=== PATIENT | female | born 1945 | race Caucasian/White ===

== ENCOUNTER 2017-11-05 13:37 | Observation (INO) ==
[2017-11-05] MEDS ORDERED: Ondansetron 4 MG/2 ML VIAL IVP ONE (14:01)
[2017-11-05] MEDS ORDERED: 0.9 % Sodium Chloride 500 ML IVC ONE (14:06)
--- NOTE | 2017-11-05 14:11 | Emergency Department Note ---
Disposition Clinical Impression: Intractable nausea and vomiting Qualifiers: Vomiting type: unspecified Qualified Code(s): R11.2 - Nausea with vomiting, unspecified UTI (urinary tract infection) Qualifiers: Urinary tract infection type: acute cystitis Hematuria presence: without hematuria Qualified Code(s): N30.00 - Acute cystitis without hematuria Disposition: Admitted As Inpatient Condition: Fair Referrals: Rocio Castellano MD [Primary Care Provider] - Forms: ED Satisfaction Letter Time of Disposition: 16:56 General Adult HPI - General Chief complaint: ED Nausea/Vomiting/Diarrhea Stated complaint: UTI/N/V Time Seen by Provider: 11/05/17 13:42 Source: patient Mode of arrival: ambulatory Limitations: no limitations Nursing Notes Reviewed: Yes Vital Signs Reviewed: Yes - History of Present Illness HPI Narrative: Patient is a 72-year-old female with a past medical history of CVA, DM, HTN, TIA , Gastric neuropathy presenting to the emergency department with the presentation of nausea and vomiting not refractory to Zofran. The patient was seen yesterday in the emergency department for symptoms that started 2 days ago. She states that she has been having nausea vomiting and dysuria. She did have a fever on initial presentation yesterday however that resolved. Patient states that the Zofran has not been working for her at home she has not been able to keep any of her medication down. She denies any blood in her emesis, however there was a noted 1 black emesis patient's history of present illness from yesterday. She denies melena or hematochezia. Pain Scale: 8 - Related Data Home Medications Medication Instructions Recorded Confirmed Aspirin Enteric Coated [Aspirin EC] 81 mg PO HS 02/24/15 05/10/16 Calcium Carbonate/Vitamin D3 1 each PO BID 02/24/15 05/10/16 [Calcium 500-Vit D3 400 Tablet] Escitalopram [Lexapro] 10 mg PO DAILY 02/24/15 05/10/16 Metoprolol [Lopressor] 25 mg PO BID 02/24/15 05/10/16 Niacin 500 mg PO BID 02/24/15 05/10/16 Pantoprazole Sodium [Protonix] 40 mg PO DAILY 02/24/15 05/10/16 Sucralfate [Carafate] 1 gm PO TID 02/24/15 05/10/16 [place]-3/Dha/Epa/Fish Oil [Fish Oil 1,000 mg PO QID 05/10/16 05/10/16 1,000 mg Softgel] Pravastatin Sodium [Pravachol] 40 mg PO DAILY 05/10/16 05/10/16 hydrOXYzine HCl [Hydroxyzine HCl] 25 mg PO TID 05/10/16 05/10/16 Previous Rx's Medication Instructions Recorded Metoclopramide [Reglan] 5 mg PO BIDWM 30 Days ud.liq 05/13/16 Nitrofurantoin Monohyd/M-Cryst 100 mg PO BID #20 capsule 11/04/17 [Macrobid 100 mg Capsule] Ondansetron ODT [Zofran ODT] 4 mg SL Q6HR PRN #10 tab.rapdis 11/04/17 Allergies Allergy/AdvReac Type Severity Reaction Status Date / Time Penicillins [PCN] Allergy Severe See Verified 05/10/16 13:11 Comments Sulfa (Sulfonamide Allergy Severe See Verified 05/10/16 13:11 Antibiotics) Comments lorazepam [From Ativan] AdvReac Severe Hallucinati Verified 05/10/16 13:11 ng All systems ED: reviewed and negative except as stated. Review of Systems: As Per HPI Constitutional: Reports: fever. Denies: chills, weakness Eyes: Denies: eye discharge, vision change ENT ED: Denies: ear pain Cardiovascular: Denies: chest pain, palpitations, dyspnea on exertion Respiratory: Denies: cough, dyspnea, wheezes, hemoptysis Gastrointestinal: Reports: nausea, vomiting. Denies: abdominal pain, diarrhea, constipation, hematemesis, melena, hematochezia Genitourinary: Reports: dysuria. Denies: urgency, hematuria, discharge Musculoskeletal: Reports: arthralgia (hips - chronic from arthritis, not new.). Denies: back pain, neck pain Integumentary: Denies: rash Neurological: Denies: headache, weakness, numbness, paresthesias Past Medical History - Past Medical History Attestation: Yes The following information was validated with the patient. 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 CONSTITUTIONAL: Alert and oriented X3, patient is actively vomiting on exam. HEAD: Normocephalic; atraumatic. EYES: PERRL, no scleral icterus. NOSE: The nose is normal in appearance without rhinorrhea RESP: Normal chest excursion with respiration; breath sounds clear and equal bilaterally; no wheezes, rhonchi, or rales CARD: Regular rhythm, without murmurs, rub or gallop ABD: Non-distended; non-tender, soft,without rigidity, rebound or guarding SKIN: Normal for age and race; warm and dry; no apparent lesions - General Limitations: no limitations General appearance: alert, in no apparent distress Course Course Narrative: Plan at this time is to perform a CT of the abdomen and pelvis to rule out intra -abdominal process as cause of patient's emesis. Patient received IV fluids, Zofran and IV antibiotics for UTI that was diagnosed yesterday. 16:37: Patient's symptoms are not improving Zofran she was ordered Phenergan by Dr. Vásquez. Discussed her lab results are within normal limits her CT of her abdomen and pelvis just shows chronic changes to see with her hiatal hernia. Discussed with the patient the plan to admit her due to her intractable nausea. Vital Signs Temperature 99.0 F 11/05/17 13:41 Pulse Rate 62 11/05/17 13:41 Respiratory Rate 20 11/05/17 13:41 Blood Pressure 158/87 11/05/17 13:41 O2 Sat by Pulse Oximetry 96 11/05/17 13:41 Temperature 99.0 F 11/05/17 13:42 Pulse Rate 60 11/05/17 15:23 Respiratory Rate 18 11/05/17 15:23 Blood Pressure 158/74 11/05/17 15:23 O2 Sat by Pulse Oximetry 97 11/05/17 15:23 Oxygen Delivery Oxygen Delivery Nasal Cannula Medical Decision Making - Medical Records Medical records reviewed: Yes I reviewed the patient's medical records. - Lab Data Lab results reviewed: Yes I reviewed the patient's lab results. Result diagrams: 11/05/17 14:47 11/05/17 14:47 Lab Results 11/05/17 11/05/17 Range/Units 14:47 14:47 WBC 8.4 (4.3-11.1) K/mcL RBC 4.91 (3.82-4.97) M/mcL Hgb 11.4 L (11.5-15.4) g/dL Hct 37.2 (35.3-44.9) % MCV 75.8 L (83.0-100.0) fL MCH 23.2 L (28.0-33.3) pg MCHC 30.6 L (31.6-35.5) g/dL RDW 24.2 H (11.5-14.5) % Plt Count 277 (140-400) K/mcL MPV 9.1 L (9.4-12.4) fL Seg Neutrophils % 90.0 % Lymphocytes % 8.0 % Monocytes % 2.0 % Neutrophils # 7.6 (1.6-8.9) K/mcL Lymphocytes # 0.7 (0.6-4.6) K/mcL Monocytes # 0.2 (0.0-1.3) K/mcL Platelet Estimate Normal (Normal) Anisocytosis 2+ A (Not Present) Ovalocytes 1+ A (Not Present) Sodium 137 (136-145) mEq/L Potassium 3.4 L (3.5-5.1) mEq/L Chloride 103 (98-107) mEq/L Carbon Dioxide 25 (23-29) mEq/L BUN 20 (8-23) mg/dL Creatinine 0.93 (0.60-1.20) mg/dL Est GFR ( Amer) > 60 (> 60) Est GFR (Non-Af Amer) 59 L (> 60) BUN/Creatinine Ratio 22 (6-26) Glucose 170 H (70-105) mg/dL Calculated Osmolality 291 (280-300) Calcium 9.0 (8.6-10.3) mg/dL Total Bilirubin 0.5 (0.3-1.0) mg/dL AST 40 H (13-39) Units/L ALT 22 (7-52) Units/L Alkaline Phosphatase 70 (34-104) Units/L Troponin I < 0.03 (< 0.04) ng/mL Serum Total Protein 6.7 (6.4-8.9) g/dL Albumin 3.9 (3.5-5.7) g/dL Globulin 2.8 (2.4-3.5) g/dL Albumin/Globulin Ratio 1.4 (1.1-2.2) Lipase 74 (11-82) Units/L - Radiology Data Radiology results reviewed: Yes I reviewed the patient's radiology results. Abdomen/Pelvis CT 11/05/17 14:02 IMPRESSION: No acute intra-abdominal or pelvic finding. 8 cm hiatal hernia. Incidental note of 1 cm fat density lesion upper pole right kidney compatible with benign incidental angiomyolipoma. Moderate to severe multilevel degenerative disc changes throughout the lumbar spine. D/ / Lauro To MD / Lauro To MD Interpreting Provider: Lauro To MD Chest X-Ray 11/05/17 14:03 IMPRESSION: Hypoinflated lungs and right basilar atelectasis. No acute cardiopulmonary abnormality. D/ / Bimal Herzog MD / Bimal Herzog MD Interpreting Provider: Bimal Herzog MD - EKG Data EKG #1 EKG attestation: Yes I reviewed and interpreted this EKG. EKG results narrative: EKG done at 14:08 shows sinus rhythm at a rate of 60 bpm. Normal axis. NE is 206, QRS is 92, QT is 49 and every TC is 460 on within normal limits except for NE interval which is slightly increased. T wave inversion in V2. Attestation Statement - Attestation Attestation: I, Nathan Vásquez DO, examined this patient [id number] and my medical decision-making was reviewed with Dr. Ángel Harrison, Resident Physician. I agree with the documented findings, disposition and treatment plan as described except to the extent set forth below. Please see my progress notes for details.
[2017-11-05 15:12] LABS: Hematocrit 37.2 % (35.3-44.9); Hemoglobin 11.4 g/dL (11.5-15.4); Mean Corpuscular HGB Conc 30.6 g/dL (31.6-35.5); Mean Corpuscular Hemoglobin 23.2 pg (28.0-33.3); Mean Corpuscular Volume 75.8 fL (83.0-100.0); Mean Platelet Volume 9.1 fL (9.4-12.4); Platelet Count 277 K/mcL (140-400); Red Blood Count 4.91 M/mcL (3.82-4.97); Red Cell Distribution Width 24.2 % (11.5-14.5)
[2017-11-05 15:33] LABS: Alanine Aminotransferase 22 Units/L (7-52); Albumin 3.9 g/dL (3.5-5.7); Albumin/Globulin Ratio 1.4 (1.1-2.2); Alkaline Phosphatase 70 Units/L (34-104); Aspartate Amino Transferase 40 Units/L (13-39); BUN/Creatinine Ratio 22 (6-26); Bilirubin,Total 0.5 mg/dL (0.3-1.0); Blood Urea Nitrogen 20 mg/dL (8-23); Carbon Dioxide 25 mEq/L (23-29); Chloride 103 mEq/L (98-107); Globulin 2.8 g/dL (2.4-3.5); Glucose 170 mg/dL (70-105); Lipase 74 Units/L (11-82); Osmolality,Calculated 291 (280-300); Potassium 3.4 mEq/L (3.5-5.1); Sodium 137 mEq/L (136-145); Total Protein 6.7 g/dL (6.4-8.9); Troponin I < 0.03 ng/mL (< 0.04); eGFR For African Americans > 60 (> 60); eGFR For Non-African Americans 59 (> 60)
[2017-11-05] MEDS ORDERED: Promethazine 12.5 MG in 0.9 % Sodium Chloride 50 ML IVPB STA (15:37)
[2017-11-05 15:51] LABS: Lymphocytes # 0.7 K/mcL (0.6-4.6); Monocytes # 0.2 K/mcL (0.0-1.3); Neutrophils # 7.6 K/mcL (1.6-8.9)
[2017-11-05 15:52] LABS: Anisocytosis 2+ (Not Present); Ovalocytes 1+ (Not Present); Platelet Estimate Normal (Normal)
[2017-11-05] MEDS ORDERED: cefTRIAXone 1,000 MG in Water for inj. (sterile) 20 ML 10 ML IVP ONE (16:00)
--- NOTE | 2017-11-05 16:38 | Emergency Department Note ---
Disposition Clinical Impression: Intractable nausea and vomiting Qualifiers: Vomiting type: unspecified Qualified Code(s): R11.2 - Nausea with vomiting, unspecified UTI (urinary tract infection) Qualifiers: Urinary tract infection type: site unspecified Hematuria presence: with hematuria Qualified Code(s): N39.0 - Urinary tract infection, site not specified Disposition: Admitted As Inpatient Condition: Fair Referrals: Rocio Castellano MD [Primary Care Provider] - Forms: ED Satisfaction Letter Time of Disposition: 16:58 General Adult HPI - General Chief complaint: ED Nausea/Vomiting/Diarrhea Stated complaint: UTI/N/V Time Seen by Provider: 11/05/17 13:42 Source: patient Mode of arrival: ambulatory Limitations: no limitations - History of Present Illness Pain Scale: 8 - Related Data Home Medications Medication Instructions Recorded Confirmed Aspirin Enteric Coated [Aspirin EC] 81 mg PO HS 02/24/15 05/10/16 Calcium Carbonate/Vitamin D3 1 each PO BID 02/24/15 05/10/16 [Calcium 500-Vit D3 400 Tablet] Escitalopram [Lexapro] 10 mg PO DAILY 02/24/15 05/10/16 Metoprolol [Lopressor] 25 mg PO BID 02/24/15 05/10/16 Niacin 500 mg PO BID 02/24/15 05/10/16 Pantoprazole Sodium [Protonix] 40 mg PO DAILY 02/24/15 05/10/16 Sucralfate [Carafate] 1 gm PO TID 02/24/15 05/10/16 [place]-3/Dha/Epa/Fish Oil [Fish Oil 1,000 mg PO QID 05/10/16 05/10/16 1,000 mg Softgel] Pravastatin Sodium [Pravachol] 40 mg PO DAILY 05/10/16 05/10/16 hydrOXYzine HCl [Hydroxyzine HCl] 25 mg PO TID 05/10/16 05/10/16 Previous Rx's Medication Instructions Recorded Metoclopramide [Reglan] 5 mg PO BIDWM 30 Days ud.liq 05/13/16 Nitrofurantoin Monohyd/M-Cryst 100 mg PO BID #20 capsule 11/04/17 [Macrobid 100 mg Capsule] Ondansetron ODT [Zofran ODT] 4 mg SL Q6HR PRN #10 tab.rapdis 11/04/17 Allergies Allergy/AdvReac Type Severity Reaction Status Date / Time Penicillins [PCN] Allergy Severe See Verified 05/10/16 13:11 Comments Sulfa (Sulfonamide Allergy Severe See Verified 05/10/16 13:11 Antibiotics) Comments lorazepam [From Ativan] AdvReac Severe Hallucinati Verified 05/10/16 13:11 ng Constitutional: Reports: fever. Denies: chills, weakness Eyes: Denies: eye discharge, vision change ENT ED: Denies: ear pain Cardiovascular: Denies: chest pain, palpitations, dyspnea on exertion Respiratory: Denies: cough, dyspnea, wheezes, hemoptysis Gastrointestinal: Reports: nausea, vomiting. Denies: abdominal pain, diarrhea, constipation, hematemesis, melena, hematochezia Genitourinary: Reports: dysuria. Denies: urgency, hematuria, discharge Musculoskeletal: Reports: arthralgia (hips - chronic from arthritis, not new.). 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 - Social History Smoking Status: Never smoker Smokeless Tobacco Status: No Alcohol use: Reports: none Drug use: Reports: none Physical Exam - General Limitations: no limitations General appearance: alert, in no apparent distress Course Vital Signs Temperature 99.0 F 11/05/17 13:41 Pulse Rate 62 11/05/17 13:41 Respiratory Rate 20 11/05/17 13:41 Blood Pressure 158/87 11/05/17 13:41 O2 Sat by Pulse Oximetry 96 11/05/17 13:41 Temperature 99.0 F 11/05/17 13:42 Pulse Rate 60 11/05/17 15:23 Respiratory Rate 18 11/05/17 15:23 Blood Pressure 158/74 11/05/17 15:23 O2 Sat by Pulse Oximetry 97 11/05/17 15:23 Oxygen Delivery Oxygen Delivery Nasal Cannula Medical Decision Making - Lab Data Result diagrams: 11/05/17 14:47 11/05/17 14:47 Lab Results 11/05/17 11/05/17 Range/Units 14:47 14:47 WBC 8.4 (4.3-11.1) K/mcL RBC 4.91 (3.82-4.97) M/mcL Hgb 11.4 L (11.5-15.4) g/dL Hct 37.2 (35.3-44.9) % MCV 75.8 L (83.0-100.0) fL MCH 23.2 L (28.0-33.3) pg MCHC 30.6 L (31.6-35.5) g/dL RDW 24.2 H (11.5-14.5) % Plt Count 277 (140-400) K/mcL MPV 9.1 L (9.4-12.4) fL Seg Neutrophils % 90.0 % Lymphocytes % 8.0 % Monocytes % 2.0 % Neutrophils # 7.6 (1.6-8.9) K/mcL Lymphocytes # 0.7 (0.6-4.6) K/mcL Monocytes # 0.2 (0.0-1.3) K/mcL Platelet Estimate Normal (Normal) Anisocytosis 2+ A (Not Present) Ovalocytes 1+ A (Not Present) Sodium 137 (136-145) mEq/L Potassium 3.4 L (3.5-5.1) mEq/L Chloride 103 (98-107) mEq/L Carbon Dioxide 25 (23-29) mEq/L BUN 20 (8-23) mg/dL Creatinine 0.93 (0.60-1.20) mg/dL Est GFR ( Amer) > 60 (> 60) Est GFR (Non-Af Amer) 59 L (> 60) BUN/Creatinine Ratio 22 (6-26) Glucose 170 H (70-105) mg/dL Calculated Osmolality 291 (280-300) Calcium 9.0 (8.6-10.3) mg/dL Total Bilirubin 0.5 (0.3-1.0) mg/dL AST 40 H (13-39) Units/L ALT 22 (7-52) Units/L Alkaline Phosphatase 70 (34-104) Units/L Troponin I < 0.03 (< 0.04) ng/mL Serum Total Protein 6.7 (6.4-8.9) g/dL Albumin 3.9 (3.5-5.7) g/dL Globulin 2.8 (2.4-3.5) g/dL Albumin/Globulin Ratio 1.4 (1.1-2.2) Lipase 74 (11-82) Units/L Attestation Statement - Attestation Attestation: I, Nathan Vásquez DO, examined this patient [id number] and my medical decision-making was reviewed with Dr. Ángel Harrison, Resident Physician. I agree with the documented findings, disposition and treatment plan as described except to the extent set forth below. Please see my progress notes for details. 72-year-old female presents to emergency room for evaluation of nausea and vomiting and inability to keep down her antibiotic. Patient was seen here 2 days ago for vomiting at that time. She has a history of gastric intestinal neuropathy. She typically has issues of vomiting at home. She has been trying to take her home medications without any relief. Reason she ended up back in the emergency room she was just diagnosed with urinary tract infection has been not been able to take her antibiotics. Patient denies any fevers or chills chest pain shortness of breath headache or vision change. She has not been able to eat or drink anything. Denies any trauma or injury. Patient is alert she is oriented she answers questions appropriately. First dose of Zofran was given despite the medication the patient did have breakthrough emesis again. Phenergan was given at this time. Patient will be admitted at this point after laboratory workup is resulted secondary to the intractable nausea and vomiting causing her to have inability to take her antibiotic. CT imaging the abdomen was ordered to rule out any signs of obstruction or other pathology this point. Patient is otherwise clinically stable. Physical exam is relatively unremarkable. Lungs are clear heart is regular abdomen is soft she has no guarding no rigidity no peritoneal symptoms. Patient's admission process to be completed once a full workup and treatment course is established. See detailed documentation of the physical exam, medical intervention, medical decision- making and disposition in the resident physician's note. No critical care provider the patient's treatment course at this time. 1645 Chronic lab abnormalities are noted. Hemoglobin is stable. No other acute signs of white blood cell count elevation. Repeat urine was not ordered this time. Chemistry panel is stable. CT scan was reviewed by myself and confirmed by radiologist as no acute pathology. Admission process to be completed at this time 1700 Hospitalist reviewed the patient's presentation symptoms and no other concerns or issues. Patient will be admitted for definitive management.
[2017-11-05] MEDS ORDERED: D5% in Water 1,000 ML IVC PRN (19:28)
[2017-11-05] MEDS ORDERED: *HR* Dextrose 50 % in Water (Syg) 50 ML SYRINGE IVP PRN (19:28)
[2017-11-05] MEDS ORDERED: Dextrose Gel 15 GM/37.5 ML TUBE PO PRN ×2 (19:28)
[2017-11-05] MEDS ORDERED: Naloxone 0.4 MG/ML INJ IVP PRN (19:29)
--- NOTE | 2017-11-05 19:33 | Internal Med History&Physical ---
Date of Encounter: 11/05/17 Time of Encounter: 19:31 Internal Medicine - H&P: HPI Chief complaint: UTI Admitted From: Emergency Dept Plans for Post Hospital Care: Home History of present illness: Ms. Lloyd is a 72 year old female with a past medical history of CVA, DM, HTN, TIA who was evaluated in the emergency department yesterday for fever and dysuria was diagnosed with a UTI and sent home with Macrobid. She comes back because of persistent nausea and vomiting and inability to keep by mouth. She is afebrile and hemodynamically stable in the ED today but yesterday she had a fever in the ED. The ED she was given IV fluids, Zofran, IV ceftriaxone. The patient denies headache, blurry vision, chest pain, shortness breath, abdominal pain, diarrhea, constipation, neurological symptoms. Laboratory workup showed no leukocytosis and showed a potassium of 3.4. Past Med Surg Social Fam HX - Past Medical History Medical history: arthritis, CVA, diabetes, hypertension, TIA Additional medical history: hiatal hernia Psychiatric history: anxiety, depression - Past Surgical History Surgical History: cholecystectomy, other - Social History Smoking Status: Never smoker Smokeless Tobacco Status: No Alcohol use: none Drug use: none - Family History Mother Living Status: Hx Family Cardiac Disorders: Yes Hx Family Respiratory Disorders: No Hx Family Cancer: No Hx Family GI Disorders: No Hx Family Endocrine Disorder: Yes Hx Family Neuromuscular Disorders: No Hx Family Neurologic Disorders: No Hx Family HEENT Disorders: No Hx Family Autoimmune Disorders: No Internal Medicine - H&P: Meds Aspirin Enteric Coated [Aspirin EC] 81 mg PO HS 02/24/15 [History] Calcium Carbonate/Vitamin D3 [Calcium 500-Vit D3 400 Tablet] 1 each PO BID 02/24 [History] Escitalopram [Lexapro] 10 mg PO DAILY 02/24/15 [History] Metoprolol [Lopressor] 25 mg PO BID 02/24/15 [History] Niacin 500 mg PO BID 02/24/15 [History] Pantoprazole Sodium [Protonix] 40 mg PO DAILY 02/24/15 [History] Sucralfate [Carafate] 1 gm PO TID 02/24/15 [History] [place]-3/Dha/Epa/Fish Oil [Fish Oil 1,000 mg Softgel] 1,000 mg PO QID 05/10/16 [ History] Pravastatin Sodium [Pravachol] 40 mg PO DAILY 05/10/16 [History] hydrOXYzine HCl [Hydroxyzine HCl] 25 mg PO TID 05/10/16 [History] Nitrofurantoin Monohyd/M-Cryst [Macrobid 100 mg Capsule] 100 mg PO BID #20 capsule 11/04/17 [Rx] Ondansetron ODT [Zofran ODT] 4 mg SL Q6HR PRN #10 tab.rapdis 11/04/17 [Rx] Metoclopramide [Reglan] 5 ml PO BIDWM 11/05/17 [History] 3 Allergy/AdvReac Type Severity Reaction Status Date / Time Penicillins [PCN] Allergy Severe See Verified 11/05/17 17:07 Comments Sulfa (Sulfonamide Allergy Severe See Verified 11/05/17 17:07 Antibiotics) Comments lorazepam [From Ativan] AdvReac Severe Hallucinati Verified 11/05/17 17:07 ng All Systems PM: A 10-system review of systems was performed and is negative for pertinent findings except as documented above in the HPI. Review of systems: All systems reviewed are negative except for as mentioned above - Constitutional Vitals: Temp Pulse Resp BP Pulse Ox 98.4 F 63 16 165/78 94 11/05/17 18:34 11/05/17 18:34 11/05/17 18:34 11/05/17 18:34 11/05/17 18:34 Exam: GEN: NAD HEENT: AT, NC, No cyanosis, oral mucosa is moist, No JVD Lymphatics: No lymphadenoapthy Eyes: Extrocular muscles intact, anicteric CVS:RRR. S1, S2, No m/r/g RESP: CTAB ABD: Soft, NT, ND, +BS EXT: No edema, No rashes, 2+ DP NEURO: Nonfocal, CN II-XII intact, No focal motor or sensory deficits Psych: Cooperative, Not anxious or depressed Internal Med - H&P Results - Labs CBC & Chem 7: 11/05/17 14:47 11/05/17 14:47 - Assessment and plan (1) UTI (urinary tract infection) Current Visit: Yes Status: Acute Assessment and plan: I don't see cultures sent from yesterday. Will repeat UA and start IV ceftriaxone. Qualifiers: Urinary tract infection type: acute cystitis Hematuria presence: without hematuria Qualified Code(s): N30.00 - Acute cystitis without hematuria (2) Intractable nausea and vomiting Current Visit: Yes Status: Acute Assessment and plan: Symptomatic treatment. IVF, anti-emetics. Qualifiers: Vomiting type: unspecified Qualified Code(s): R11.2 - Nausea with vomiting , unspecified (3) CAD (coronary artery disease), [place] coronary artery Current Visit: No Status: Chronic Assessment and plan: c/w home cardiac meds Qualifiers: [place] vs. transplanted heart: [place] heart Associated angina: without angina Qualified Code(s): I25.10 - Atherosclerotic heart disease of [place] coronary artery without angina pectoris (4) Diabetes Current Visit: No Status: Chronic Assessment and plan: Will place on sliding scale insulin. Accucheks Qualifiers: Diabetes mellitus type: type 2 Diabetes mellitus fpc insulin use: without fpc use Diabetes mellitus complication status: without complication Qualified Code(s): E11.9 - Type 2 diabetes mellitus without complications (5) Essential hypertension Current Visit: No Status: Chronic Assessment and plan: Resume home antihypertensives. (6) DVT prophylaxis Current Visit: No Status: Acute Assessment and plan: heparin SQ - Time Spent With Patient Total time spent is greater than 50% in coordination of care (as documented) at patient's floor/unit and/or counseling patient:
[2017-11-05] MEDS: *HR* Heparin 5,000 UNIT/ML VIAL SQ SCH (20:36)
[2017-11-05] MEDS: 0.9 % Sodium Chloride 1,000 ML IVC SCH (20:36)
[2017-11-05] MEDS: Ondansetron 4 MG/2 ML VIAL IVP PRN (20:36)
[2017-11-05 20:39] LABS: Bilirubin,Urine Negative (Negative); Blood,Urine Negative (Negative); Clarity,Urine Clear (Clear); Color,Urine Yellow (Yellow); Glucose,Urine (UA) Normal (Normal); Ketones,Urine 40 mg/dL (Negative); Leukocyte Esterase,Urine Negative (Negative); Nitrite,Urine Negative (Negative); Protein,Urine Negative (Neg-Trace); Specific Gravity,Urine 1.018 (1.010-1.025); Urobilinogen,Urine Normal (Normal)
[2017-11-05] MEDS ORDERED: NON-FORMULARY MEDICATION 1 EACH EACH (Calcium Carbonate/Vitamin D3 [Calcium 500-Vit D3 400 PO SCH (21:00)
[2017-11-05] MEDS: Sucralfate 1 GM TABLET PO SCH (22:54)
[2017-11-05] MEDS: hydrOXYzine pamoate 25 MG CAPSULE PO SCH (22:54)
[2017-11-05] MEDS: Niacin (24 HR) 500 MG TAB.ER.24H PO SCH (22:57)
[2017-11-05] MEDS: Aspirin Enteric Coated 81 MG Tablet PO SCH (22:57)
[2017-11-05] MEDS: Insulin LISPRO 300 UNITS/3 ML VIAL SQ SCH (22:58)
[2017-11-05] MEDS: (Omega-3/Dha/Epa/Fish Oil [Fish Oil 1,000 Mg Softgel] PO SCH (22:58)
[2017-11-05] MEDS ORDERED: *HR* Promethazine 25 MG/ML VIAL IVP ONE (23:28)
[2017-11-06 05:47] LABS: Basophils % 0.1 %; Hematocrit 37.1 % (35.3-44.9); Hemoglobin 11.4 g/dL (11.5-15.4); Immature Granulocytes % 0.5 % (0-4); Lymphocytes # 1.9 K/mcL (0.6-4.6); Mean Corpuscular HGB Conc 30.7 g/dL (31.6-35.5); Mean Corpuscular Hemoglobin 23.5 pg (28.0-33.3); Mean Corpuscular Volume 76.5 fL (83.0-100.0); Mean Platelet Volume 8.9 fL (9.4-12.4); Monocytes # 0.7 K/mcL (0.0-1.3); Monocytes % 9.5 %; Neutrophils # 4.9 K/mcL (1.6-8.9); Platelet Count 265 K/mcL (140-400); Red Blood Count 4.85 M/mcL (3.82-4.97); Red Cell Distribution Width 24.2 % (11.5-14.5); Segmented Neutrophils % 64.9 %
[2017-11-06 06:08] LABS: BUN/Creatinine Ratio 18 (6-26); Blood Urea Nitrogen 15 mg/dL (8-23); Calcium 8.5 mg/dL (8.6-10.3); Carbon Dioxide 24 mEq/L (23-29); Chloride 106 mEq/L (98-107); Glucose 93 mg/dL (70-105); Magnesium 1.9 mg/dL (1.6-2.6); Osmolality,Calculated 291 (280-300); Potassium 3.8 mEq/L (3.5-5.1); Sodium 140 mEq/L (136-145); eGFR For African Americans > 60 (> 60); eGFR For Non-African Americans > 60 (> 60)
[2017-11-06] MEDS: 0.9 % Sodium Chloride 1,000 ML IVC SCH (06:14)
[2017-11-06] MEDS: *HR* Heparin 5,000 UNIT/ML VIAL SQ SCH ×3 (06:14→21:32)
[2017-11-06 06:22] LABS: Platelet Estimate Normal (Normal)
[2017-11-06 06:23] LABS: Anisocytosis 2+ (Not Present); Hypochromasia Present (Not Present)
[2017-11-06] MEDS: Sucralfate 1 GM TABLET PO SCH ×3 (08:07→21:31)
[2017-11-06] MEDS: Cholecalciferol (D-3) 1,000 UNIT TABLET PO SCH (09:14)
[2017-11-06] MEDS: hydrOXYzine pamoate 25 MG CAPSULE PO SCH ×3 (09:15→21:30)
[2017-11-06] MEDS: Niacin (24 HR) 500 MG TAB.ER.24H PO SCH ×2 (09:15→21:30)
[2017-11-06] MEDS: Metoclopramide 10 MG/10 ML UD.LIQ PO SCH ×2 (09:15→15:52)
[2017-11-06] MEDS: cefTRIAXone 1,000 MG in Water for inj. (sterile) 20 ML 10 ML IVP SCH (09:16)
[2017-11-06] MEDS: (Omega-3/Dha/Epa/Fish Oil [Fish Oil 1,000 Mg Softgel] PO SCH ×2 (09:16→11:52)
[2017-11-06] MEDS: Insulin LISPRO 300 UNITS/3 ML VIAL SQ SCH ×4 (09:17→21:31)
[2017-11-06] MEDS: Acetaminophen 325 MG TABLET PO PRN (15:52)
--- NOTE | 2017-11-06 17:55 | Electrocardiograph Report ---
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
--- NOTE | 2017-11-06 19:09 | Internal Med Progress Note ---
Date of Encounter: 11/06/17 Time of Encounter: 11:00 - Assessment and plan (1) UTI (urinary tract infection) Current Visit: Yes Status: Acute Assessment and plan: Will continue IV ceftriaxone overnight Qualifiers: Urinary tract infection type: acute cystitis Hematuria presence: without hematuria Qualified Code(s): N30.00 - Acute cystitis without hematuria (2) Essential hypertension Current Visit: No Status: Chronic Assessment and plan: Resume home antihypertensives. (3) Intractable nausea and vomiting Current Visit: Yes Status: Acute Assessment and plan: Patient asymptomatic this morning and tolerating food Will monitor overnight Qualifiers: Vomiting type: unspecified Qualified Code(s): R11.2 - Nausea with vomiting , unspecified (4) Diabetes Current Visit: No Status: Chronic Assessment and plan: Will place on sliding scale insulin. Accucheks Qualifiers: Diabetes mellitus type: type 2 Diabetes mellitus binder layer insulin use: without long-term use Diabetes mellitus complication status: without complication Qualified Code(s): E11.9 - Type 2 diabetes mellitus without complications (5) CAD (coronary artery disease), [place] coronary artery Current Visit: No Status: Chronic Assessment and plan: c/w home cardiac meds Qualifiers: [place] vs. transplanted heart: [place] heart Associated angina: without angina Qualified Code(s): I25.10 - Atherosclerotic heart disease of [place] coronary artery without angina pectoris (6) DVT prophylaxis Current Visit: No Status: Acute Assessment and plan: heparin SQ - Time Spent With Patient Total time spent is greater than 50% in coordination of care (as documented) at patient's floor/unit and/or counseling patient: - Subjective Interval history: She is sitting up in a chair this morning and eating without nausea and vomiting - Constitutional Vitals: Temp Pulse Resp BP Pulse Ox 98.6 F 56 15 119/74 97 11/06/17 14:24 11/06/17 14:24 11/06/17 14:24 11/06/17 14:24 11/06/17 14:24 - Respiratory Respiratory exam: Present: CTAB. Absent: accessory muscle use, rales, rhonchi, wheezes - Cardiovascular Cardiovascular exam: Present: RRR, +S1, +S2. Absent: diastolic murmur, gallop, rubs, systolic murmur Internal Medicine: Result - Labs CBC & Chem 7: 11/06/17 05:31 11/06/17 05:31 Labs: Short CBC 11/06/17 Range/Units 05:31 WBC 7.6 (4.3-11.1) K/mcL Hgb 11.4 L (11.5-15.4) g/dL Hct 37.1 (35.3-44.9) % Plt Count 265 (140-400) K/mcL Neutrophils # 4.9 (1.6-8.9) K/mcL BMP 11/06/17 05:31 Sodium 140 Potassium 3.8 Chloride 106 Carbon Dioxide 24 BUN 15 Creatinine 0.82 Glucose 93 Calcium 8.5 L Urine 11/05/17 Range/Units 20:18 Urine Color Yellow (Yellow) Urine Clarity Clear (Clear) Urine pH 6.0 (5.0-8.0) pH Units Ur Specific [place] 1.018 (1.010-1.025) Urine Protein Negative (Neg-Trace) mg/dL Urine Glucose (UA) Normal (Normal) mg/dL Consult Discharge Plan - Plan Referrals: Rocio Castellano MD [Primary Care Provider] -
[2017-11-06] MEDS: Aspirin Enteric Coated 81 MG Tablet PO SCH (21:30)
[2017-11-07] MEDS: *HR* Heparin 5,000 UNIT/ML VIAL SQ SCH ×2 (05:43→16:51)
[2017-11-07] MEDS: cefTRIAXone 1,000 MG in Water for inj. (sterile) 20 ML 10 ML IVP SCH (07:43)
[2017-11-07] MEDS: Metoclopramide 10 MG/10 ML UD.LIQ PO SCH ×2 (07:43→16:52)
[2017-11-07] MEDS: Insulin LISPRO 300 UNITS/3 ML VIAL SQ SCH ×3 (07:43→16:52)
[2017-11-07] MEDS: Sucralfate 1 GM TABLET PO SCH ×2 (07:44→16:52)
[2017-11-07] MEDS: Acetaminophen 325 MG TABLET PO PRN (07:44)
[2017-11-07] MEDS: Niacin (24 HR) 500 MG TAB.ER.24H PO SCH (07:44)
[2017-11-07] MEDS: hydrOXYzine pamoate 25 MG CAPSULE PO SCH ×2 (07:44→16:52)
[2017-11-07] MEDS: Cholecalciferol (D-3) 1,000 UNIT TABLET PO SCH (07:49)
[2017-11-07 08:45] LABS: Basophils % 0.7 %; Eosinophils # 0.1 K/mcL (0.0-0.6); Eosinophils % 1.1 %; Hematocrit 34.6 % (35.3-44.9); Hemoglobin 10.4 g/dL (11.5-15.4); Immature Granulocytes % 0.2 % (0-4); Lymphocytes # 1.7 K/mcL (0.6-4.6); Lymphocytes % 28.2 %; Mean Corpuscular HGB Conc 30.1 g/dL (31.6-35.5); Mean Corpuscular Hemoglobin 22.9 pg (28.0-33.3); Mean Corpuscular Volume 76.2 fL (83.0-100.0); Mean Platelet Volume 9.1 fL (9.4-12.4); Monocytes # 0.6 K/mcL (0.0-1.3); Monocytes % 9.8 %; Neutrophils # 3.7 K/mcL (1.6-8.9); Platelet Count 262 K/mcL (140-400); Red Blood Count 4.54 M/mcL (3.82-4.97)
[2017-11-07 08:57] LABS: BUN/Creatinine Ratio 19 (6-26); Blood Urea Nitrogen 16 mg/dL (8-23); Calcium 8.5 mg/dL (8.6-10.3); Carbon Dioxide 24 mEq/L (23-29); Chloride 108 mEq/L (98-107); Glucose 121 mg/dL (70-105); Osmolality,Calculated 290 (280-300); Potassium 3.7 mEq/L (3.5-5.1); Sodium 139 mEq/L (136-145); eGFR For African Americans > 60 (> 60); eGFR For Non-African Americans > 60 (> 60)
[2017-11-07 09:51] LABS: Platelet Estimate Normal (Normal)
[2017-11-07 11:09] VITALS: BP 128/80
[2017-11-07] MEDS: Ondansetron 4 MG/2 ML VIAL IVP PRN (12:39)
--- NOTE | 2017-11-07 13:58 | Discharge Summary ---
- NOTES TO OUTPATIENT PROVIDER Notes to Outpatient Provider: none Date of Encounter: 11/07/17 Time of Encounter: 11:00 - Discharge Diagnosis (1) UTI (urinary tract infection) Priority: Primary Status: Acute Qualifiers: Urinary tract infection type: acute cystitis Hematuria presence: without hematuria Qualified Code(s): N30.00 - Acute cystitis without hematuria (2) Essential hypertension Priority: Secondary Status: Chronic (3) Intractable nausea and vomiting Priority: Secondary Status: Acute Qualifiers: Vomiting type: unspecified Qualified Code(s): R11.2 - Nausea with vomiting , unspecified (4) Diabetes Priority: Secondary Status: Chronic Qualifiers: Diabetes mellitus type: type 2 Diabetes mellitus 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 transplanted heart: [place] heart Associated angina: without angina Qualified Code(s): I25.10 - Atherosclerotic heart disease of [place] coronary artery without angina pectoris Hospital course: Patient is a 72-year-old female with past medical history significant for CVA, DM, HTN, TIA who was evaluated in the emergency department for fever and dysuria was diagnosed with a UTI and sent home with Macrobid. Patient returns to the ER for persistent nausea and vomiting and inability to keep by mouth. In the ER, she was given IV fluids, Zofran, IV ceftriaxone. She was admitted to medical surgical floor for further evaluation. During patients hospital stay her symptoms resolved and she was able to tolerate by mouth. Patient will be discharged to continue her antibiotic course for UTI and follow up with primary care provider. - Time Spent with Patient Total time spent providing and/or coordinating discharge services: Less than 30 minutes - Discharge Medications Home Medications: Aspirin Enteric Coated [Aspirin EC] 81 mg PO HS 02/24/15 [History] Calcium Carbonate/Vitamin D3 [Calcium 500-Vit D3 400 Tablet] 1 each PO BID 02/24 [History] Escitalopram [Lexapro] 10 mg PO DAILY 02/24/15 [History] Metoprolol [Lopressor] 25 mg PO BID 02/24/15 [History] Niacin 500 mg PO BID 02/24/15 [History] Pantoprazole Sodium [Protonix] 40 mg PO DAILY 02/24/15 [History] Sucralfate [Carafate] 1 gm PO TID 02/24/15 [History] [place]-3/Dha/Epa/Fish Oil [Fish Oil 1,000 mg Softgel] 1,000 mg PO QID 05/10/16 [ History] Pravastatin Sodium [Pravachol] 40 mg PO DAILY 05/10/16 [History] hydrOXYzine HCl [Hydroxyzine HCl] 25 mg PO TID 05/10/16 [History] Nitrofurantoin Monohyd/M-Cryst [Macrobid 100 mg Capsule] 100 mg PO BID #20 capsule 11/04/17 [Rx] Ondansetron ODT [Zofran ODT] 4 mg SL Q6HR PRN #10 tab.rapdis 11/04/17 [Rx] Metoclopramide [Reglan] 5 ml PO BIDWM 11/05/17 [History] Allergies/Adverse Reactions: 3 Allergy/AdvReac Type Severity Reaction Status Date / Time Penicillins [PCN] Allergy Severe See Verified 11/05/17 17:07 Comments Sulfa (Sulfonamide Allergy Severe See Verified 11/05/17 17:07 Antibiotics) Comments lorazepam [From Ativan] AdvReac Severe Hallucinati Verified 11/05/17 17:07 ng Date of admission: 11/05/17 18:08 Primary care physician: Rocio Castellano - Constitutional Vitals: Temp Pulse Resp BP Pulse Ox 98.5 F 70 18 128/80 93 11/07/17 11:06 11/07/17 11:06 11/07/17 11:06 11/07/17 11:06 11/07/17 11:06 - Respiratory Respiratory exam: Present: CTAB. Absent: accessory muscle use, rales, rhonchi, wheezes - Cardiovascular Cardiovascular exam: Present: RRR, +S1, +S2. Absent: diastolic murmur, gallop, rubs, systolic murmur - Patient Status Disposition: Home Health Service Condition: Fair - Discharge Instructions Instructions: Urinary Tract Infection in Women (DC) Follow Up With: Jose Armando Humphries Jr, ROPE [employer] MACHINE OPERATOR [Advanced Practice Nurse] - 11/15/17 10:30 am
--- NOTE | 2017-11-07 16:38 | Physician Discharge Referral ---
Home Health/Hosp Referral Info Transfer to: Home Health - Diagnosis (1) UTI (urinary tract infection) Status: Acute (2) Essential hypertension Status: Chronic (3) Intractable nausea and vomiting Status: Acute (4) Diabetes Status: Chronic (5) CAD (coronary artery disease), [place] coronary artery Status: Chronic (6) DVT prophylaxis Status: Acute - Respiratory Orders Smoking Cessation: Smoking cessation has been advised. For more information, call the [place] Tobacco Quit Line at 9-688-XVAL-NOW. - Services Needed Following services are medically necessary services: Nursing, Home Health Aide - Transfer Medications Home Medications: Aspirin Enteric Coated [Aspirin EC] 81 mg PO HS 02/24/15 [History] Calcium Carbonate/Vitamin D3 [Calcium 500-Vit D3 400 Tablet] 1 each PO BID 02/24 [History] Escitalopram [Lexapro] 10 mg PO DAILY 02/24/15 [History] Metoprolol [Lopressor] 25 mg PO BID 02/24/15 [History] Niacin 500 mg PO BID 02/24/15 [History] Pantoprazole Sodium [Protonix] 40 mg PO DAILY 02/24/15 [History] Sucralfate [Carafate] 1 gm PO TID 02/24/15 [History] [place]-3/Dha/Epa/Fish Oil [Fish Oil 1,000 mg Softgel] 1,000 mg PO QID 05/10/16 [ History] Pravastatin Sodium [Pravachol] 40 mg PO DAILY 05/10/16 [History] hydrOXYzine HCl [Hydroxyzine HCl] 25 mg PO TID 05/10/16 [History] Nitrofurantoin Monohyd/M-Cryst [Macrobid 100 mg Capsule] 100 mg PO BID #20 capsule 11/04/17 [Rx] Ondansetron ODT [Zofran ODT] 4 mg SL Q6HR PRN #10 tab.rapdis 11/04/17 [Rx] Metoclopramide [Reglan] 5 ml PO BIDWM 11/05/17 [History] Allergies/Adverse Reactions: 3 Allergy/AdvReac Type Severity Reaction Status Date / Time Penicillins [PCN] Allergy Severe See Verified 11/05/17 17:07 Comments Sulfa (Sulfonamide Allergy Severe See Verified 11/05/17 17:07 Antibiotics) Comments lorazepam [From Ativan] AdvReac Severe Hallucinati Verified 11/05/17 17:07 sho Certification: Further, I certify that my clinical findings support that this patient is homebound (i.e. absences from home require considerable and taxing effort and are for medical reasons or voodoo services or infrequently or short duration when for other reasons) because: Homebound Reason: Patient requires assistance of a person or device to safely leave home Attestation: My signature below is to certify that this patient is under my care and that I, or nurse practitioner, or a physician's assistant pressman working with me, has a face-to -face encounter with this patient.
== END 2017-11-07 17:22 | disposition home health service (06) ==
LOC: 3ANU 13:37 → EMEROO 13:37 → SUATTDRO 18:08 → 3ANU 18:20
PROVIDERS: ADMIT Internal Medicine; ATTEND Hospitalist

== ENCOUNTER 2018-05-07 15:17 | Inpatient (IN) ==
[2018-05-07] MEDS ORDERED: 0.9 % Sodium Chloride 1,000 ML IVC ONE (15:21)
[2018-05-07] MEDS ORDERED: Ondansetron 4 MG/2 ML VIAL IVP ONE ×2 (15:21→16:49)
--- NOTE | 2018-05-07 15:42 | Emergency Department Note ---
Disposition Clinical Impression: Dehydration Acute pancreatitis Qualifiers: Pancreatitis type: unspecified pancreatitis type Acute pancreatitis complication: unspecified Qualified Code(s): K85.90 - Acute pancreatitis without necrosis or infection, unspecified Disposition: Admitted As Inpatient Condition: Fair Forms: ED Satisfaction Letter Time of Disposition: 17:46 General Adult HPI - General Chief complaint: ED Nausea/Vomiting/Diarrhea Stated complaint: Fever,nausea Time Seen by Provider: 05/07/18 15:21 Source: patient, EMS Mode of arrival: EMS Limitations: no limitations Nursing Notes Reviewed: Yes Vital Signs Reviewed: Yes - History of Present Illness HPI Narrative: 71-year-old female presents to the ED via EMS for nausea vomiting and diarrhea. Patient states she did have fever 100.2 was unable to take anything she is Vomiting. Says Nonbilious Nonbloody Vomit. Says the Diarrhea Is Very Loose Stools Has Happened about 7-10 Times since Earlier This Morning. All This Began around 6 AM This Point. She Says She Is Only Having Abdominal Pain Due To the Vomiting. Otherwise she is not having any abdominal pain. She is currently describing her pain as 2 out of 10 nonradiating epigastric pain describing it as a dull ache and nothing is helped with it. Patient does have history diabetes, CAD, TIAs, CVA, hypertension. She did have a cholecystectomy done and she has not 15 as well as an EGD which was diagnosed with gastroparesis secondary to her diabetes. Patient otherwise has no complaints at this time including no headaches, blurry vision, neck pain, back pain, chills, chest pain, shortness breath, pain with urination, pain or tingling in any arms or legs or generalized weakness. Pain Scale: 5 - Related Data Home Medications Medication Instructions Recorded Confirmed Aspirin Enteric Coated [Aspirin EC] 81 mg PO HS 02/24/15 11/05/17 Calcium Carbonate/Vitamin D3 1 each PO BID 02/24/15 11/05/17 [Calcium 500-Vit D3 400 Tablet] Escitalopram [Lexapro] 10 mg PO DAILY 02/24/15 11/05/17 Metoprolol [Lopressor] 25 mg PO BID 02/24/15 11/05/17 Niacin 500 mg PO BID 02/24/15 11/05/17 Pantoprazole Sodium [Protonix] 40 mg PO DAILY 02/24/15 11/05/17 Sucralfate [Carafate] 1 gm PO TID 02/24/15 11/05/17 [place]-3/Dha/Epa/Fish Oil [Fish Oil 1,000 mg PO QID 05/10/16 11/05/17 1,000 mg Softgel] Pravastatin Sodium [Pravachol] 40 mg PO DAILY 05/10/16 11/05/17 hydrOXYzine HCl [Hydroxyzine HCl] 25 mg PO TID 05/10/16 11/05/17 Metoclopramide [Reglan] 5 ml PO BIDWM 11/05/17 11/05/17 Previous Rx's Medication Instructions Recorded Nitrofurantoin Monohyd/M-Cryst 100 mg PO BID #20 capsule 11/04/17 [Macrobid 100 mg Capsule] Ondansetron ODT [Zofran ODT] 4 mg SL Q6HR PRN #10 tab.rapdis 11/04/17 Allergies Allergy/AdvReac Type Severity Reaction Status Date / Time Penicillins [PCN] Allergy Severe See Verified 11/05/17 17:07 Comments Sulfa (Sulfonamide Allergy Severe See Verified 11/05/17 17:07 Antibiotics) Comments lorazepam [From Ativan] AdvReac Severe Hallucinati Verified 11/05/17 17:07 ng All systems ED: reviewed and negative except as stated. Review of Systems: As Per HPI Past Medical History - Past Medical History Attestation: Yes The following information was validated with the patient. Source: patient Medical history: Reports: arthritis, CVA, diabetes, hyperlipidemia, hypertensio n, TIA Surgical history: Reports: cholecystectomy, other Psychiatric history: Reports: anxiety, depression SKI INSTRUCTOR history: Reports: no SKI INSTRUCTOR history - Social History Smoking Status: Never smoker Smokeless Tobacco Status: No Alcohol use: Reports: none Drug use: Reports: none Physical Exam - General Limitations: no limitations General appearance: alert, in no apparent distress, anxious (Patient is actively vomiting while evaluating her.) - Head Head exam: atraumatic, normocephalic, normal inspection - Eye Eye exam: Present: normal appearance, PERRL, EOMI - ENT ENT exam: normal exam, normal oropharynx, mucous membranes moist, TM's normal bilaterally - Neck Neck exam: Present: normal inspection, full ROM, trachea midline - Chest Chest inspection: Present: normal inspection, symmetric chest wall rise - Respiratory Respiratory exam: Present: normal lung sounds bilaterally - Cardiovascular Cardiovascular exam: Present: regular rate, normal rhythm, normal heart sounds - Abdominal Exam Abdominal exam: Present: soft, tenderness (Epigastric tenderness on palpation.), normal bowel sounds. Absent: distention, guarding, rebound, rigidity - Extremities Exam Extremities exam: Present: normal inspection, full ROM. Absent: tenderness, pedal edema - Back Exam Back exam: Present: normal inspection, full ROM. Absent: tenderness, CVA tenderness (R), CVA tenderness (L) - Neurological Exam Neurological exam: Present: alert, oriented X3 - Skin Skin exam: Present: warm, dry, intact, normal color Course Course Narrative: We will get basic labs including CBC, BMP, lipase. We will get urinalysis is last time this occurred patient did have a UTI. We will get CT abdomen and pelvis without contrast for further evaluation of her stomach. We will give patient IV fluids, Zofran for nausea and rehydration. His physician pending results Vital Signs Temperature 99.6 F 05/07/18 15:20 Pulse Rate 75 05/07/18 15:20 Respiratory Rate 18 05/07/18 15:20 Blood Pressure 119/77 05/07/18 15:20 O2 Sat by Pulse Oximetry 96 05/07/18 15:20 Temperature 99.6 F 05/07/18 15:20 Pulse Rate 79 05/07/18 17:18 Respiratory Rate 18 05/07/18 17:18 Blood Pressure 112/58 05/07/18 17:18 O2 Sat by Pulse Oximetry 95 05/07/18 17:18 Oxygen Delivery Oxygen Delivery Room Air Medical Decision Making - [facility] Narrative Medical decision making narrative: 73-year-old female here with nausea vomiting fever. She denies fever while she was here. Did give her IV fluids which did help with her symptoms as well as nausea which she has not vomited since she has been here. Also gave her mo rphine for pain control. Patient's labs did show an elevated lipase she is never had an elevated lipase for sore treating her as acute pancreatitis. We did do CT abdomen and pelvis which had no acute findings found on that. I spoke with the hospitalist Dr. Bauer who agreed to admit the patient to their service. Patient admitted in stable condition. Abdomen/Pelvis CT 05/07/18 15:22 IMPRESSION: 1. Fluid in the colon. This is in keeping with clinical history of diarrhea. No evidence of bowel obstruction to account for vomiting. 2. Sigmoid and descending colon diverticulosis. No evidence of diverticulitis. 3. Cholecystectomy. 4. Small to moderate hiatal hernia. 5. 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 D/ / 05/07/2018 16:28:09 Ty Núñez MD / soto Interpreting Provider: Ty Núñez MD - Medical Records Medical records reviewed: Yes I reviewed the patient's medical records. - Lab Data Lab results reviewed: Yes I reviewed the patient's lab results. Result diagrams: 05/07/18 15:21 05/07/18 15:21 Lab Results 05/07/18 05/07/18 05/07/18 Range/Units 15:21 15:21 16:28 WBC 9.6 (4.3-11.1) K/mcL RBC 5.58 H (3.82-4.97) M/mcL Hgb 16.4 H (11.5-15.4) g/dL Hct 50.1 H (35.3-44.9) % MCV 89.8 (83.0-100.0) fL MCH 29.4 (28.0-33.3) pg MCHC 32.7 (31.6-35.5) g/dL RDW 12.9 (11.5-14.5) % Plt Count 257 (140-400) K/mcL MPV 9.2 L (9.4-12.4) fL Immature Gran % 0.4 (0-4) % Seg Neutrophils % 90.6 % Lymphocytes % 5.2 % Monocytes % 3.2 % Eosinophils % 0.4 % Basophils % 0.2 % Neutrophils # 8.7 (1.6-8.9) K/mcL Lymphocytes # 0.5 L (0.6-4.6) K/mcL Monocytes # 0.3 (0.0-1.3) K/mcL Eosinophils # 0.0 (0.0-0.6) K/mcL Basophils # 0.0 (0.0-0.2) K/mcL Sodium 137 (136-145) mEq/L Potassium 4.3 (3.5-5.1) mEq/L Chloride 105 (98-107) mEq/L Carbon Dioxide 24 (23-29) mEq/L BUN 26 H (8-23) mg/dL Creatinine 0.95 (0.60-1.20) mg/dL Est GFR ( Amer) > 60 (> 60) Est GFR (Non-Af Amer) 58 L (> 60) BUN/Creatinine Ratio 27 H (6-26) Glucose 196 H (70-105) mg/dL Calculated Osmolality 294 (280-300) Calcium 9.3 (8.6-10.3) mg/dL Total Bilirubin 0.5 (0.3-1.0) mg/dL AST 33 (13-39) Units/L ALT 24 (7-52) Units/L Alkaline Phosphatase 72 (34-104) Units/L Serum Total Protein 7.7 (6.4-8.9) g/dL Albumin 4.2 (3.5-5.7) g/dL Globulin 3.5 (2.4-3.5) g/dL Albumin/Globulin Ratio 1.2 (1.1-2.2) Lipase 224 H (11-82) Units/L Urine Color Yellow (Yellow) Urine Clarity Clear (Clear) Urine pH 5.5 (5.0-8.0) pH Units Ur Specific [place] 1.021 (1.010-1.025) Urine Protein Trace (Neg-Trace) mg/dL Urine Glucose (UA) Normal (Normal) mg/dL Urine Ketones Negative (Negative) mg/dL Urine Blood Negative (Negative) Urine Nitrite Negative (Negative) Urine Bilirubin Negative (Negative) Urine Urobilinogen Normal (Normal) mg/dL Ur Leukocyte Esterase Trace H (Negative) Urine Microscopic RBC 0-3 (0-3) per hpf Urine Microscopic WBC 5-15 H (0-3) per hpf Ur Squamous Epith Cells Many H (None-Few) per lpf Urine Bacteria None Seen (None-Few) per hpf Hyaline Casts None Seen (None-Few) per lpf Ur Culture Indicated? NO. A (NO) - Radiology Data Radiology results reviewed: Yes I reviewed the patient's radiology results.
--- NOTE | 2018-05-07 15:44 | Emergency Department Note ---
Disposition Clinical Impression: Dehydration Disposition: Still a Patient Forms: ED Satisfaction Letter General Adult HPI - General Chief complaint: ED Nausea/Vomiting/Diarrhea Stated complaint: Fever,nausea Time Seen by Provider: 05/07/18 15:21 Source: patient, EMS Mode of arrival: EMS Limitations: no limitations Nursing Notes Reviewed: Yes Vital Signs Reviewed: Yes - History of Present Illness HPI Narrative: ED attending Attestation note I examined this patient and my medical decision-making was reviewed with the Resident Physician/nurse practitioner/physician contact lens assistant/medical student. I agree with the documented findings, disposition and treatment plan as described except to the extent set forth below. I personally have spent [id number] time with the patient. Briefly: 71-year-old female history of prior abdominal surgeries and diabetes comes in with intractable nausea vomiting abdominal pain and low-grade fevers for the past several days. Diffuse tenderness but no guarding or rebound. Decreased bowel sounds. Trial mucosa.Low-grade fever 99.6 and she said her MAXIMUM TEMPERATURE at home was was [id number]. Patient appears ill but nontoxic getting IV rehydration anti-medics abdominal pelvic CT scan urinalysis screening labs and EKG. Providing 30 minutes critical care services to this patient. Disposition pending Pain Scale: 5 - Related Data Home Medications Medication Instructions Recorded Confirmed Aspirin Enteric Coated [Aspirin EC] 81 mg PO HS 02/24/15 11/05/17 Calcium Carbonate/Vitamin D3 1 each PO BID 02/24/15 11/05/17 [Calcium 500-Vit D3 400 Tablet] Escitalopram [Lexapro] 10 mg PO DAILY 02/24/15 11/05/17 Metoprolol [Lopressor] 25 mg PO BID 02/24/15 11/05/17 Niacin 500 mg PO BID 02/24/15 11/05/17 Pantoprazole Sodium [Protonix] 40 mg PO DAILY 02/24/15 11/05/17 Sucralfate [Carafate] 1 gm PO TID 02/24/15 11/05/17 [place]-3/Dha/Epa/Fish Oil [Fish Oil 1,000 mg PO QID 05/10/16 11/05/17 1,000 mg Softgel] Pravastatin Sodium [Pravachol] 40 mg PO DAILY 05/10/16 11/05/17 hydrOXYzine HCl [Hydroxyzine HCl] 25 mg PO TID 05/10/16 11/05/17 Metoclopramide [Reglan] 5 ml PO BIDWM 11/05/17 11/05/17 Previous Rx's Medication Instructions Recorded Nitrofurantoin Monohyd/M-Cryst 100 mg PO BID #20 capsule 11/04/17 [Macrobid 100 mg Capsule] Ondansetron ODT [Zofran ODT] 4 mg SL Q6HR PRN #10 tab.rapdis 11/04/17 Allergies Allergy/AdvReac Type Severity Reaction Status Date / Time Penicillins [PCN] Allergy Severe See Verified 11/05/17 17:07 Comments Sulfa (Sulfonamide Allergy Severe See Verified 11/05/17 17:07 Antibiotics) Comments lorazepam [From Ativan] AdvReac Severe Hallucinati Verified 11/05/17 17:07 ng Past Medical History - Past Medical History Medical history: Reports: arthritis, CVA, diabetes, hyperlipidemia, hypertension, TIA Surgical history: Reports: cholecystectomy, other Psychiatric history: Reports: anxiety, depression PARTS COUNTER SPECIALIST history: Reports: no PARTS COUNTER SPECIALIST history - Social History Smoking Status: Never smoker Smokeless Tobacco Status: No Alcohol use: Reports: none Drug use: Reports: none Physical Exam - General Limitations: no limitations General appearance: alert, in no apparent distress Course Vital Signs Temperature 99.6 F 05/07/18 15:20 Pulse Rate 75 05/07/18 15:20 Respiratory Rate 18 05/07/18 15:20 Blood Pressure 119/77 05/07/18 15:20 O2 Sat by Pulse Oximetry 96 05/07/18 15:20 Temperature 99.6 F 05/07/18 15:20 Pulse Rate 75 05/07/18 15:20 Respiratory Rate 18 05/07/18 15:20 Blood Pressure 119/77 05/07/18 15:20 O2 Sat by Pulse Oximetry 96 05/07/18 15:20 Oxygen Delivery Oxygen Delivery Room Air
[2018-05-07 15:50] LABS: Basophils % 0.2 %; Eosinophils % 0.4 %; Hematocrit 50.1 % (35.3-44.9); Hemoglobin 16.4 g/dL (11.5-15.4); Immature Granulocytes % 0.4 % (0-4); Lymphocytes # 0.5 K/mcL (0.6-4.6); Lymphocytes % 5.2 %; Mean Corpuscular HGB Conc 32.7 g/dL (31.6-35.5); Mean Corpuscular Hemoglobin 29.4 pg (28.0-33.3); Mean Corpuscular Volume 89.8 fL (83.0-100.0); Mean Platelet Volume 9.2 fL (9.4-12.4); Monocytes # 0.3 K/mcL (0.0-1.3); Monocytes % 3.2 %; Neutrophils # 8.7 K/mcL (1.6-8.9); Platelet Count 257 K/mcL (140-400); Red Blood Count 5.58 M/mcL (3.82-4.97); Red Cell Distribution Width 12.9 % (11.5-14.5); Segmented Neutrophils % 90.6 %
[2018-05-07 16:04] LABS: Alanine Aminotransferase 24 Units/L (7-52); Albumin 4.2 g/dL (3.5-5.7); Albumin/Globulin Ratio 1.2 (1.1-2.2); Alkaline Phosphatase 72 Units/L (34-104); Aspartate Amino Transferase 33 Units/L (13-39); BUN/Creatinine Ratio 27 (6-26); Bilirubin,Total 0.5 mg/dL (0.3-1.0); Blood Urea Nitrogen 26 mg/dL (8-23); Calcium 9.3 mg/dL (8.6-10.3); Carbon Dioxide 24 mEq/L (23-29); Chloride 105 mEq/L (98-107); Globulin 3.5 g/dL (2.4-3.5); Glucose 196 mg/dL (70-105); Lipase 224 Units/L (11-82); Osmolality,Calculated 294 (280-300); Potassium 4.3 mEq/L (3.5-5.1); Sodium 137 mEq/L (136-145); Total Protein 7.7 g/dL (6.4-8.9); eGFR For Non-African Americans 58 (> 60)
[2018-05-07] MEDS ORDERED: *HR* Morphine 2 MG/ML SYRINGE IVP ONE (16:36)
[2018-05-07 16:45] LABS: Bilirubin,Urine Negative (Negative); Blood,Urine Negative (Negative); Clarity,Urine Clear (Clear); Color,Urine Yellow (Yellow); Glucose,Urine (UA) Normal (Normal); Ketones,Urine Negative (Negative); Leukocyte Esterase,Urine Trace (Negative); Nitrite,Urine Negative (Negative); PH,Urine 5.5 pH Units (5.0-8.0); Protein,Urine Trace mg/dL (Neg-Trace); Specific Gravity,Urine 1.021 (1.010-1.025); Urobilinogen,Urine Normal (Normal)
[2018-05-07 16:46] LABS: Bacteria,Urine None Seen per hpf (None-Few); Hyaline Casts,Urine None Seen per lpf (None-Few); RBC,Urine 0-3 per hpf (0-3); Squamous Epithelial Cell,Urine Many per lpf (None-Few)
[2018-05-07] MEDS ORDERED: Naloxone 0.4 MG/ML INJ IVP PRN (20:09)
[2018-05-07] MEDS ORDERED: Dextrose Gel 15 GM/37.5 ML TUBE PO PRN ×2 (20:12)
[2018-05-07] MEDS ORDERED: D5% in Water 1,000 ML IVC PRN (20:12)
[2018-05-07] MEDS ORDERED: *HR* Dextrose 50 % in Water (Syg) 50 ML SYRINGE IVP PRN (20:12)
--- NOTE | 2018-05-07 21:46 | Internal Med History&Physical ---
Date of Encounter: 05/07/18 Time of Encounter: 19:30 Internal Medicine - H&P: HPI Chief complaint: abdominal pain, nausea, vomiting Admitted From: Emergency Dept Plans for Post Hospital Care: Home History of present illness: Ms. Lloyd is a 73 year old female who presents with a 5-6 day history of protracted nausea and vomiting followed by abdominal pain, which started over the last 24 hours. Because of the abdominal pain onset, she came to ER for evaluation where she was found to have evidence of pancreatitis. She was subsequently admitted to hospitalist service. Upon my assessment of the patient, she looks dehydrated but otherwise in no acute distress. She confirms the almost weeklong history of nausea and vomiting. She states she has history of gastroparesis and is used to having episodes of protracted nausea and vomiting. However, her abdominal pain was new in onset. She has no gallbladder and had a cholecystectomy about 3 years ago. She does not drink any alcohol. She denies any diarrhea, fevers, chills, or jaundice skin discoloration. She denies any history of peptic ulcer disease or significant GI upset. Past Med Surg Social Fam HX - Past Medical History Attestation: Yes The following information was validated with the patient. Source: patient, old records reviewed Medical history: arthritis, CVA, diabetes, hyperlipidemia, hypertension, TIA Additional medical history: 3 TIA's Psychiatric history: anxiety, depression - Past Surgical History Surgical History: cholecystectomy - Social History Smoking Status: Never smoker Smokeless Tobacco Status: No Alcohol use: none Drug use: none Current living situation: Home - Independent Activity Level: Independent ambulation Recent Out of Country Travel Within the Last 8 Weeks: No - Family History Mother History Unknown: Yes Living Status: Hx Family Cardiac Disorders: Yes Hx Family Respiratory Disorders: No Hx Family Cancer: No Hx Family GI Disorders: No Hx Family Endocrine Disorder: Yes Hx Family Neuromuscular Disorders: No Hx Family Neurologic Disorders: No Hx Family HEENT Disorders: No Hx Family Autoimmune Disorders: No Internal Medicine - H&P: Meds Aspirin Enteric Coated [Aspirin EC] 81 mg PO HS 02/24/15 [History] Metoprolol [Lopressor] 25 mg PO BID 02/24/15 [History] Niacin 500 mg PO DAILY 02/24/15 [History] Pantoprazole Sodium [Protonix] 40 mg PO DAILY 02/24/15 [History] Pravastatin Sodium [Pravachol] 40 mg PO DAILY 05/10/16 [History] hydrOXYzine HCl [Hydroxyzine HCl] 25 mg PO TID 05/10/16 [History] Ondansetron ODT [Zofran ODT] 4 mg SL Q6HR PRN #10 tab.rapdis 11/04/17 [Rx] Metoclopramide [Reglan] 5 ml PO BIDWM 11/05/17 [History] Acetaminophen [Tylenol] 1,000 mg PO Q6HR PRN 05/07/18 [History] Cholecalciferol (D-3) [Vitamin D] 1,000 unit PO DAILY 05/07/18 [History] Escitalopram [Lexapro] 10 mg PO DAILY 05/07/18 [History] Melatonin 5 mg PO HS 05/07/18 [History] Sucralfate [Carafate] 1 gm PO TID 05/07/18 [History] Allergy/AdvReac Type Severity Reaction Status Date / Time Penicillins [PCN] Allergy Severe See Verified 05/07/18 21:31 Comments Sulfa (Sulfonamide Allergy Severe See Verified 05/07/18 21:31 Antibiotics) Comments lorazepam [From Ativan] AdvReac Severe Hallucinati Verified 05/07/18 21:31 ng - Constitutional Constitutional: no chills, no fever(s), no night sweats - EENT Eyes: no change in vision Ears: no ear pain Nose, mouth and throat: no nasal congestion, no nasal discharge, no sore throat - Cardiovascular Cardiovascular ROS IM: no chest pain, no dyspnea, no dyspnea on exertion - Respiratory Respiratory: no cough, no hemoptysis, no chest congestion, no excessive phlegm production, no change in phlegm color - Gastrointestinal Gastrointestinal: abdominal pain, nausea, vomiting, no diarrhea, no heartburn, no hematemesis, no hematochezia, no melena - Genitourinary Genitourinary: no dysuria, no flank pain, no hematuria - Musculoskeletal Musculoskeletal ROS IM: no arthralgias, no back pain - Integumentary Integumentary IM: no rash, no jaundice - Neurological Neurological ROS: no dizziness, no focal weakness, no frequent falls, no headache(s) - Psychiatric Psychiatric: no anxiety, no depression - Endocrine Endocrine IM: no polydipsia, no polyphagia, no polyuria - Allergic/Immunologic Allergic/Immunologic: GI upset with certain foods, no wheezing - Constitutional Vitals: Temp Pulse Resp BP Pulse Ox 99.7 F H 80 16 114/64 93 05/07/18 19:26 05/07/18 19:26 05/07/18 19:26 05/07/18 19:26 05/07/18 19:26 General appearance: Present: cooperative, A&O X 3, pleasant, no acute distress Exam: looks dehydrated otherwise NAD - Head Head exam: Present: atraumatic, normal inspection - Eye Eye exam: Present: EOMI, PERRL. Absent: scleral icterus Pupils: Present: normal accommodation - ENT ENT exam: Present: mucous membranes dry, normal exam, normal oropharynx - Neck Neck exam general surgery: Present: full ROM, supple. Absent: tenderness, nuchal rigidity, thyromegaly - Respiratory Respiratory exam: Present: CTAB. Absent: chest wall tenderness, rales, rhonchi, wheezes - Cardiovascular Cardiovascular exam: Present: distant heart sounds, RRR, +S1, +S2. Absent: diastolic murmur, systolic murmur - GI/Abdominal GI/Abdominal exam: Present: hypoactive bowel sounds, soft, tenderness (mild to moderate RUQ/epigastric pain with deep palpation). Absent: hepatomegaly, mass, splenomegaly - Extremities Exam Extremities exam: Present: full ROM, warm, radial pulses palpable and symmetrical. Absent: calf tenderness, tenderness - Back Exam Back exam: Absent: CVA tenderness (L), CVA tenderness (R) - Neurological Exam Neurological exam: Present: alert, CN II-XII intact, oriented X3, no focal deficits Additional comments: + neuropathy in feet -- chronic - Psychiatric Psychiatric exam: Present: normal affect, normal mood - Skin Skin exam: Present: dry, intact, warm Internal Med - H&P Results - Labs CBC & Chem 7: 05/07/18 15:21 05/07/18 15:21 Labs: Short CBC 05/07/18 Range/Units 15:21 WBC 9.6 (4.3-11.1) K/mcL Hgb 16.4 H (11.5-15.4) g/dL Hct 50.1 H (35.3-44.9) % Plt Count 257 (140-400) K/mcL Neutrophils # 8.7 (1.6-8.9) K/mcL BMP 05/07/18 15:21 Sodium 137 Potassium 4.3 Chloride 105 Carbon Dioxide 24 BUN 26 H Creatinine 0.95 Glucose 196 H Calcium 9.3 Liver Function 05/07/18 Range/Units 15:21 Total Bilirubin 0.5 (0.3-1.0) mg/dL AST 33 (13-39) Units/L ALT 24 (7-52) Units/L Alkaline Phosphatase 72 (34-104) Units/L Albumin 4.2 (3.5-5.7) g/dL Urine 05/07/18 Range/Units 16:28 Urine Color Yellow (Yellow) Urine Clarity Clear (Clear) Urine pH 5.5 (5.0-8.0) pH Units Ur Specific [place] 1.021 (1.010-1.025) Urine Protein Trace (Neg-Trace) mg/dL Urine Glucose (UA) Normal (Normal) mg/dL - Impressions ITS Impressions Abdomen/Pelvis CT 05/07/18 15:22 IMPRESSION: 1. Fluid in the colon. This is in keeping with clinical history of diarrhea. No evidence of bowel obstruction to account for vomiting. 2. Sigmoid and descending colon diverticulosis. No evidence of diverticulitis. 3. Cholecystectomy. 4. Small to moderate hiatal hernia. 5. 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 D/ / 05/07/2018 16:28:09 Ty Núñez MD / soto Interpreting Provider: Ty Núñez MD - Diagnostic Studies CT scan - abdomen Additional comments: Report reviewed: pancreas normal; hiatal hernia; angiomyolipoma in RUL kidney - Assessment and plan (1) Acute pancreatitis Current Visit: Yes Status: Acute Assessment and plan: 1. Will keep npo and trend pancreatic labs and LFT's. 2. Will hydrate with IVF. 3. Will order anti-emetics and IV pain meds as necessary. 4. Transition to oral diet once clinically improved and pancreatic enzymes improve. Qualifiers: Pancreatitis type: idiopathic Acute pancreatitis complication: unspecified Qualified Code(s): K85.00 - Idiopathic acute pancreatitis without necrosis or infection (2) Dehydration Current Visit: Yes Status: Acute Assessment and plan: 1. IVF hydration. 2. Oral hydration once no longer npo. (3) Nausea & vomiting Current Visit: Yes Status: Acute Assessment and plan: 1. Likely due to pancreatitis and gastroparesis. 2. Hydration and symptom control as above. Qualifiers: Vomiting type: unspecified Vomiting Intractability: non-intractable Néstor lified Code(s): R11.2 - Nausea with vomiting, unspecified (4) Diabetes Current Visit: Yes Status: Chronic Assessment and plan: 1. Patient reports diet-controlled diabetes. 2. Will order SSI low dose and monitor glucose closely. Qualifiers: Diabetes mellitus type: type 2 Diabetes mellitus senior living insulin use: without moth exterminator use Diabetes mellitus complication status: with unspecified complications Qualified Code(s): E11.8 - Type 2 diabetes mellitus with unspecified complications (5) DVT prophylaxis Current Visit: Yes Status: Acute Assessment and plan: 1. Heparin SQ.
[2018-05-07] MEDS: *HR* FentaNYL (PF) 100 MCG/2 ML VIAL IVP PRN (22:36)
[2018-05-07] MEDS: Ondansetron 4 MG/2 ML VIAL IVP PRN (22:37)
[2018-05-07] MEDS: 0.9 % Sodium Chloride 1,000 ML IVC SCH (22:40)
[2018-05-08] MEDS: Insulin LISPRO 300 UNITS/3 ML VIAL SQ SCH ×5 (00:08→23:50)
[2018-05-08 03:24] LABS: Basophils % 0.2 %; Eosinophils % 0.4 %; Hematocrit 44.1 % (35.3-44.9); Immature Granulocytes % 0.2 % (0-4); Lymphocytes # 0.7 K/mcL (0.6-4.6); Lymphocytes % 12.3 %; Mean Corpuscular Hemoglobin 28.9 pg (28.0-33.3); Mean Corpuscular Volume 90.4 fL (83.0-100.0); Mean Platelet Volume 9.2 fL (9.4-12.4); Monocytes # 0.5 K/mcL (0.0-1.3); Monocytes % 8.6 %; Neutrophils # 4.2 K/mcL (1.6-8.9); Platelet Count 196 K/mcL (140-400); Red Blood Count 4.88 M/mcL (3.82-4.97); Red Cell Distribution Width 12.9 % (11.5-14.5); Segmented Neutrophils % 78.3 %
[2018-05-08 03:27] LABS: Hemoglobin 14.1 g/dL (11.5-15.4)
[2018-05-08 03:46] LABS: Alanine Aminotransferase 16 Units/L (7-52); Albumin 3.4 g/dL (3.5-5.7); Albumin/Globulin Ratio 1.3 (1.1-2.2); Alkaline Phosphatase 54 Units/L (34-104); Amylase 47 Units/L (29-103); Aspartate Amino Transferase 19 Units/L (13-39); BUN/Creatinine Ratio 22 (6-26); Bilirubin,Direct 0.1 mg/dL (0.0-0.2); Bilirubin,Indirect 0.3 mg/dL (0.0-1.2); Bilirubin,Total 0.4 mg/dL (0.3-1.0); Blood Urea Nitrogen 18 mg/dL (8-23); Calcium 8.1 mg/dL (8.6-10.3); Carbon Dioxide 23 mEq/L (23-29); Chloride 109 mEq/L (98-107); Chol/HDL Ratio 3.1 (0-4.9); Cholesterol 101 mg/dL (< 200); Globulin 2.7 g/dL (2.4-3.5); Glucose 102 mg/dL (70-105); HDL Cholesterol 33 mg/dL (40-59); LDL Cholesterol,Calculated 41 mg/dL (0-99); Lipase 33 Units/L (11-82); Magnesium 1.7 mg/dL (1.6-2.6); Osmolality,Calculated 290 (280-300); Potassium 3.8 mEq/L (3.5-5.1); Sodium 139 mEq/L (136-145); Total Protein 6.1 g/dL (6.4-8.9); Triglycerides 136 mg/dL (< 150); eGFR For Non-African Americans > 60 (> 60)
[2018-05-08] MEDS: Pantoprazole 40 MG VIAL IVP SCH ×2 (05:48→17:56)
[2018-05-08] MEDS: Ondansetron 4 MG/2 ML VIAL IVP PRN ×3 (05:50→18:14)
[2018-05-08] MEDS: *HR* Heparin 5,000 UNIT/ML VIAL SQ SCH ×2 (05:52→17:56)
[2018-05-08] MEDS: *HR* FentaNYL (PF) 100 MCG/2 ML VIAL IVP PRN ×2 (05:54→12:03)
[2018-05-08] MEDS: 0.9 % Sodium Chloride 1,000 ML IVC SCH (09:25)
[2018-05-08] MEDS: OXYCODONE Oral CONC 10 MG/0.5 ML ORAL.SYG SL PRN (18:15)
--- NOTE | 2018-05-08 21:42 | Internal Med Progress Note ---
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 She had roughly 10 watery bowel movements (without blood or mucus) yesterday. She has somewhat decreased frequency of bowel movements today; the last one happened around noon. She continues to have off and on nausea but not vomiting. Denies abdominal pain. Denies chest pain and difficulty breathing. OBJECTIVE: Skin: Free of rash and discoloration. ENMT: Oral/pharyngeal mucosa is normal in appearance. Eyes: Sclera is white. There is no discharge from eyes. Respiratory: Normal breath sounds; no crackles or wheezes. CV: Heart is regular; no gallop or murmur. GI: Abdomen is soft and not tender. There is no palpable mass or visceromegaly. Neuro: There is no focal deficits. ADDITIONAL DATA: Hemoglobin is 14.1 with normal WBC/platelet count. Her BMP is normal. She had lipase of 224 at admission; 33 today morning. ASSESSMENT AND PLAN: She may have acute pancreatitis. She may also have elevated lipase due to some gastroenteritis/enteritis. The treatment is the same. We will keep her on nothing by mouth diet and IV fluids with addition of potassium chloride. Her dehydration is resolving. On IV fluids. Type 2 diabetes mellitus, diet controlled. To continue when necessary insulin Humalog. Hypertension. Under control. Her Lopressor he is on hold. - Exam Vitals: Temp Pulse Resp BP Pulse Ox 98.2 F 67 13 123/72 95 05/08/18 19:12 05/08/18 19:12 05/08/18 19:12 05/08/18 19:12 05/08/18 19:12 Exam: xx - Assessment and Plan (1) Acute pancreatitis Current Visit: Yes Status: Acute (2) Diarrhea Current Visit: Yes Status: Acute (3) Dehydration Current Visit: Yes Status: Resolved (4) Type 2 diabetes mellitus Current Visit: Yes Status: Chronic (5) HTN (hypertension) Current Visit: Yes Status: Chronic - Time Spent with Patient Total time spent is greater than 50% in coordination of care (as documented) at patient's floor/unit and/or counseling patient: 25 - 35 minutes Plan of Care Discussed with: patient Internal Medicine: Result - Labs CBC & Chem 7: 05/08/18 03:05 05/08/18 03:05 Labs: Short CBC 05/08/18 Range/Units 03:05 WBC 5.4 (4.3-11.1) K/mcL Hgb 14.1 D (11.5-15.4) g/dL Hct 44.1 (35.3-44.9) % Plt Count 196 (140-400) K/mcL Neutrophils # 4.2 (1.6-8.9) K/mcL BMP 05/08/18 03:05 Sodium 139 Potassium 3.8 Chloride 109 H Carbon Dioxide 23 BUN 18 Creatinine 0.81 Glucose 102 Calcium 8.1 L Liver Function 05/08/18 Range/Units 03:05 Total Bilirubin 0.4 (0.3-1.0) mg/dL Direct Bilirubin 0.1 (0.0-0.2) mg/dL AST 19 (13-39) Units/L ALT 16 (7-52) Units/L Alkaline Phosphatase 54 (34-104) Units/L Albumin 3.4 L (3.5-5.7) g/dL - Impressions Impressions Abdomen/Pelvis CT 05/07/18 15:22 IMPRESSION: 1. Fluid in the colon. This is in keeping with clinical history of diarrhea. No evidence of bowel obstruction to account for vomiting. 2. Sigmoid and descending colon diverticulosis. No evidence of diverticulitis. 3. Cholecystectomy. 4. Small to moderate hiatal hernia. 5. 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 D/ / 05/07/2018 16:28:09 Ty Núñez MD / soto Interpreting Provider: Ty Núñez MD Consult Discharge Plan - Plan Referrals: Rocio Castellano MD [Primary Care Provider] - (1) Acute pancreatitis Qualifiers: Pancreatitis type: idiopathic Acute pancreatitis complication: unspecified Qualified Code(s): K85.00 - Idiopathic acute pancreatitis without necrosis or infection (2) Diarrhea Qualifiers: Diarrhea type: unspecified type Qualified Code(s): R19.7 - Diarrhea, unspecified (4) Type 2 diabetes mellitus Qualifiers: Diabetes mellitus long-term insulin use: without intermediate card tender use Diabetes mellitus complication status: without complication Qualified Code(s): E11.9 - Type 2 diabetes mellitus without complications
[2018-05-08] MEDS: 0.9 % Sodium Chloride w KCl 20 MEQ/1,000 ML MLS IVC SCH (22:31)
[2018-05-09] MEDS: OXYCODONE Oral CONC 10 MG/0.5 ML ORAL.SYG SL PRN (02:09)
[2018-05-09] MEDS: Ondansetron 4 MG/2 ML VIAL IVP PRN ×2 (02:10→12:24)
[2018-05-09] MEDS: *HR* Heparin 5,000 UNIT/ML VIAL SQ SCH ×2 (05:48→16:49)
[2018-05-09] MEDS: Pantoprazole 40 MG VIAL IVP SCH ×2 (05:48→16:46)
[2018-05-09] MEDS: Insulin LISPRO 300 UNITS/3 ML VIAL SQ SCH ×2 (05:48→12:22)
[2018-05-09] MEDS: 0.9 % Sodium Chloride w KCl 20 MEQ/1,000 ML MLS IVC SCH (12:21)
[2018-05-09] MEDS: Cholestyramine 4 GM POWD.PACK PO SCH (16:46)
[2018-05-09] MEDS: Melatonin 3 MG TABLET PO SCH (20:10)
--- NOTE | 2018-05-09 22:52 | Internal Med Progress Note ---
Hospitalist Progress Note - Encounter Date of Encounter: 05/09/18 Time of Encounter: 19:00 - Subjective Interval History: SUBJECTIVE: The patient had 3 watery bowel movements yesterday; none today morning/early afternoon. He continues to have fluctuating in intensity nausea but not vomiting. Most of her abdominal pain is in right lower quadrant. Denies chest pain and difficulty breathing. OBJECTIVE: Skin: Free of rash and discoloration. ENMT: Oral/pharyngeal mucosa is normal in appearance. Eyes: Sclera is white. There is no discharge from eyes. Respiratory: Normal breath sounds; no crackles or wheezes. CV: Heart is regular; no gallop or murmur. GI: Abdomen is tender in all 4 quadrants. Mostly in the right lower quadrant. There is no palpable mass or visceromegaly. Neuro: There is no focal deficits. ADDITIONAL DATA (from yesterday): Hemoglobin is 14.1 with normal WBC/platelet count. Her BMP is normal. She had lipase of 224 at admission; 33 today morning. ASSESSMENT AND PLAN: She may have acute pancreatitis. She may also have elevated lipase due to some gastroenteritis/enteritis. 2 continue nothing by mouth diet. To continue IV fluid with the addition of potassium chloride. We will try twice a day Questran and 3 times a day Bentyl. She may have underlying irritable bowel syndrome. He gets when necessary IV Zofran. Dehydration. Basically resolved. He is on IV fluids. Type 2 diabetes mellitus, diet controlled. To continue when necessary insulin Humalog. Hypertension. Under control. Her Lopressor he is on hold. - Exam Vitals: Temp Pulse Resp BP Pulse Ox 98.1 F 71 15 123/73 96 05/09/18 18:43 05/09/18 18:43 05/09/18 18:43 05/09/18 18:43 05/09/18 18:43 Exam: xx - Assessment and Plan (1) Acute pancreatitis Current Visit: Yes Status: Acute (2) Diarrhea Current Visit: Yes Status: Acute (3) Dehydration Current Visit: Yes Status: Resolved (4) Type 2 diabetes mellitus Current Visit: Yes Status: Chronic (5) HTN (hypertension) Current Visit: Yes Status: Chronic - Time Spent with Patient Total time spent is greater than 50% in coordination of care (as documented) at patient's floor/unit and/or counseling patient: 25 - 35 minutes Plan of Care Discussed with: patient Internal Medicine: Result - Labs CBC & Chem 7: 05/08/18 03:05 05/08/18 03:05 Consult Discharge Plan - Plan Referrals: Rocio Castellano MD [Primary Care Provider] - (1) Acute pancreatitis Qualifiers: Pancreatitis type: idiopathic Acute pancreatitis complication: unspecified Qualified Code(s): K85.00 - Idiopathic acute pancreatitis without necrosis or infection (2) Diarrhea Qualifiers: Diarrhea type: unspecified type Qualified Code(s): R19.7 - Diarrhea, unspecified (4) Type 2 diabetes mellitus Qualifiers: Diabetes mellitus organizational development director insulin use: without organizational development director use Diabetes mellitus complication status: without complication Qualified Code(s): E11.9 - Type 2 diabetes mellitus without complications
[2018-05-10] MEDS: 0.9 % Sodium Chloride w KCl 20 MEQ/1,000 ML MLS IVC SCH ×2 (01:24→16:34)
[2018-05-10] MEDS: OXYCODONE Oral CONC 10 MG/0.5 ML ORAL.SYG SL PRN ×2 (01:33→19:55)
[2018-05-10] MEDS: Pantoprazole 40 MG VIAL IVP SCH ×2 (05:34→18:52)
[2018-05-10] MEDS: *HR* Heparin 5,000 UNIT/ML VIAL SQ SCH ×2 (05:34→18:51)
[2018-05-10] MEDS: Insulin LISPRO 300 UNITS/3 ML VIAL SQ SCH ×4 (07:42→18:51)
[2018-05-10] MEDS: Ondansetron 4 MG/2 ML VIAL IVP PRN (07:45)
[2018-05-10] MEDS: Cholestyramine 4 GM POWD.PACK PO SCH ×2 (07:46→16:35)
[2018-05-10] MEDS: Melatonin 3 MG TABLET PO SCH (19:55)
--- NOTE | 2018-05-10 21:23 | Internal Med Progress Note ---
Hospitalist Progress Note - Encounter Date of Encounter: 05/10/18 Time of Encounter: 19:00 - Subjective Interval History: SUBJECTIVE: I saw this patient in the late morning. She reported to me feeling better. She had 4 small volume watery bowel movements yesterday. Has not had any today. Her abdominal pain seems to be mild. Her nausea is only off and on; not continuous. Denies chest pain. He denies difficulty breathing. OBJECTIVE: Skin: Free of rash and discoloration. ENMT: Oral/pharyngeal mucosa is normal in appearance. Eyes: Sclera is white. There is no discharge from eyes. Respiratory: Normal breath sounds; no crackles or wheezes. CV: Heart is regular; no gallop or murmur. GI: Abdomen is mildly tender in the lower half; mostly on the right side. There is no palpable mass or visceromegaly. Neuro: There is no focal deficits. ADDITIONAL DATA: I am ordering CBC and BMP in the morning. ASSESSMENT AND PLAN: She may have acute pancreatitis. She may also have elevated lipase due to some gastroenteritis/enteritis. We will try clear liquids. She is on IV Protonix. We started Questran and Bentyl yesterday. She gets when necessary IV Zofran. She may have underlying IBS. Dehydration. Basically resolved. She is on IV fluids with addition of potassium chloride. Type 2 diabetes mellitus, diet controlled. To continue when necessary insulin Humalog. Hypertension. Under control. Her Lopressor he is on hold. - Exam Vitals: Temp Pulse Resp BP Pulse Ox 98.6 F 57 16 121/63 96 05/10/18 19:46 05/10/18 19:46 05/10/18 19:46 05/10/18 19:46 05/10/18 19:46 Exam: xx - Assessment and Plan (1) Acute pancreatitis Current Visit: Yes Status: Acute (2) Diarrhea Current Visit: Yes Status: Acute (3) Dehydration Current Visit: Yes Status: Resolved (4) Type 2 diabetes mellitus Current Visit: Yes Status: Chronic (5) HTN (hypertension) Current Visit: Yes Status: Chronic - Time Spent with Patient Total time spent is greater than 50% in coordination of care (as documented) at patient's floor/unit and/or counseling patient: 25 - 35 minutes Plan of Care Discussed with: patient Internal Medicine: Result - Labs CBC & Chem 7: 05/08/18 03:05 12/06/18 03:05 Consult Discharge Plan - Plan Referrals: Rocio Castellano MD [Primary Care Provider] - (1) Acute pancreatitis Qualifiers: Pancreatitis type: idiopathic Acute pancreatitis complication: unspecified Qualified Code(s): K85.00 - Idiopathic acute pancreatitis without necrosis or infection (2) Diarrhea Qualifiers: Diarrhea type: unspecified type Qualified Code(s): R19.7 - Diarrhea, unspecified (4) Type 2 diabetes mellitus Qualifiers: Diabetes mellitus usp insulin use: without long term care administrator use Diabetes mellitus complication status: without complication Qualified Code(s): E11.9 - Type 2 diabetes mellitus without complications
[2018-05-11] MEDS: Insulin LISPRO 300 UNITS/3 ML VIAL SQ SCH ×4 (00:44→17:59)
[2018-05-11] MEDS: Ondansetron 4 MG/2 ML VIAL IVP PRN (04:14)
[2018-05-11] MEDS: 0.9 % Sodium Chloride w KCl 20 MEQ/1,000 ML MLS IVC SCH (04:14)
[2018-05-11 04:53] LABS: Basophils % 0.7 %; Eosinophils # 0.2 K/mcL (0.0-0.6); Eosinophils % 4.4 %; Hematocrit 40.3 % (35.3-44.9); Hemoglobin 13.4 g/dL (11.5-15.4); Immature Granulocytes % 0.2 % (0-4); Lymphocytes # 1.4 K/mcL (0.6-4.6); Lymphocytes % 31.5 %; Mean Corpuscular HGB Conc 33.3 g/dL (31.6-35.5); Mean Corpuscular Hemoglobin 29.3 pg (28.0-33.3); Mean Corpuscular Volume 88.2 fL (83.0-100.0); Mean Platelet Volume 9.1 fL (9.4-12.4); Monocytes # 0.5 K/mcL (0.0-1.3); Neutrophils # 2.3 K/mcL (1.6-8.9); Platelet Count 206 K/mcL (140-400); Red Blood Count 4.57 M/mcL (3.82-4.97); Red Cell Distribution Width 12.7 % (11.5-14.5); Segmented Neutrophils % 52.2 %
[2018-05-11 05:09] LABS: BUN/Creatinine Ratio 9 (6-26); Blood Urea Nitrogen 5 mg/dL (8-23); Calcium 8.5 mg/dL (8.6-10.3); Carbon Dioxide 19 mEq/L (23-29); Chloride 106 mEq/L (98-107); Glucose 107 mg/dL (70-105); Magnesium 1.5 mg/dL (1.6-2.6); Osmolality,Calculated 274 (280-300); Potassium 3.6 mEq/L (3.5-5.1); Sodium 133 mEq/L (136-145); eGFR For Non-African Americans > 60 (> 60)
[2018-05-11] MEDS: Pantoprazole 40 MG VIAL IVP SCH ×3 (06:17→18:46)
[2018-05-11] MEDS: *HR* Heparin 5,000 UNIT/ML VIAL SQ SCH ×2 (06:17→17:59)
[2018-05-11] MEDS: Cholestyramine 4 GM POWD.PACK PO SCH ×2 (08:40→17:59)
[2018-05-11] MEDS: Melatonin 3 MG TABLET PO SCH (20:10)
--- NOTE | 2018-05-11 23:09 | Internal Med Progress Note ---
Hospitalist Progress Note - Encounter Date of Encounter: 05/11/18 Time of Encounter: 19:00 - Subjective Interval History: SUBJECTIVE: The patient feels pretty good today. I saw her in the morning and later in the afternoon. Her nausea is pretty much gone. She had only 2 watery bowel movements yesterday. Her abdominal pain is relatively mild. She is not feeling hungry. She would not like me to advance her diet, yet. Denies chest pain. He denies difficulty breathing. OBJECTIVE: Skin: Free of rash and discoloration. ENMT: Oral/pharyngeal mucosa is normal in appearance. Eyes: Sclera is white. There is no discharge from eyes. Respiratory: Normal breath sounds; no crackles or wheezes. CV: Heart is regular; no gallop or murmur. GI: Abdomen is mildly tender in the lower half; mostly on the right side. There is no palpable mass or visceromegaly. Neuro: There is no focal deficits. ADDITIONAL DATA: CBC is normal. Potassium is 3.6 with a creatinine of 0.58. ASSESSMENT AND PLAN: She may have acute pancreatitis. She may also have elevated lipase due to some gastroenteritis/enteritis. She tolerates clear liquids. She is on IV Protonix. She is on Questran and Bentyl. She is on when necessary IV Zofran. Diarrhea. She may have underlying IBS. I will try to advance her diet tomorrow. Dehydration. Basically resolved. I will stop her IV fluids, as she tolerates clear liquids. Type 2 diabetes mellitus, diet controlled. To continue when necessary insulin Humalog. Hypertension. Under control. Her Lopressor he is on hold. - Exam Vitals: Temp Pulse Resp BP Pulse Ox 98.5 F 61 15 119/71 96 05/11/18 19:05 05/11/18 19:05 05/11/18 19:05 05/11/18 19:05 05/11/18 19:05 Exam: xx - Assessment and Plan (1) Acute pancreatitis Current Visit: Yes Status: Acute (2) Diarrhea Current Visit: Yes Status: Acute (3) Dehydration Current Visit: Yes Status: Resolved (4) Type 2 diabetes mellitus Current Visit: Yes Status: Chronic (5) HTN (hypertension) Current Visit: Yes Status: Chronic - Time Spent with Patient Total time spent is greater than 50% in coordination of care (as documented) at patient's floor/unit and/or counseling patient: 25 - 35 minutes Plan of Care Discussed with: patient Internal Medicine: Result - Labs CBC & Chem 7: 05/11/18 04:26 05/11/18 04:26 Labs: Short CBC 05/11/18 Range/Units 04:26 WBC 4.4 (4.3-11.1) K/mcL Hgb 13.4 (11.5-15.4) g/dL Hct 40.3 (35.3-44.9) % Plt Count 206 (140-400) K/mcL Neutrophils # 2.3 (1.6-8.9) K/mcL BMP 05/11/18 04:26 Sodium 133 L Potassium 3.6 Chloride 106 Carbon Dioxide 19 L BUN 5 L Creatinine 0.58 L Glucose 107 H Calcium 8.5 L Consult Discharge Plan - Plan Referrals: Rocio Castellano MD [Primary Care Provider] - (1) Acute pancreatitis Qualifiers: Pancreatitis type: idiopathic Acute pancreatitis complication: unspecified Qualified Code(s): K85.00 - Idiopathic acute pancreatitis without necrosis or infection (2) Diarrhea Qualifiers: Diarrhea type: unspecified type Qualified Code(s): R19.7 - Diarrhea, unspecified (4) Type 2 diabetes mellitus Qualifiers: Diabetes mellitus chcf insulin use: without chcf use Diabetes mellitus complication status: without complication Qualified Code(s): E11.9 - Type 2 diabetes mellitus without complications
[2018-05-12] MEDS: Insulin LISPRO 300 UNITS/3 ML VIAL SQ SCH ×2 (00:26→05:52)
[2018-05-12] MEDS: *HR* Heparin 5,000 UNIT/ML VIAL SQ SCH ×2 (05:56→17:55)
[2018-05-12] MEDS: Cholestyramine 4 GM POWD.PACK PO SCH ×2 (08:27→15:54)
[2018-05-12] MEDS ORDERED: Ondansetron ODT 4 MG TAB.RAPDIS SL PRN (09:36)
[2018-05-12] MEDS: Acetaminophen 325 MG TABLET PO PRN ×2 (14:19→22:06)
[2018-05-12] MEDS: Melatonin 3 MG TABLET PO SCH (22:02)
[2018-05-13] MEDS: *HR* Heparin 5,000 UNIT/ML VIAL SQ SCH (05:30)
--- NOTE | 2018-05-13 06:20 | Internal Med Progress Note ---
Hospitalist Progress Note - Encounter Date of Encounter: 05/12/18 Time of Encounter: 19:00 - Subjective Interval History: SUBJECTIVE: I saw this patient before dinner. She had full liquids for breakfast and lunch today. Denies nausea and vomiting. She does have mild right lower quadrant abdominal pain. Denies chest pain. He denies difficulty breathing. OBJECTIVE: Skin: Free of rash and discoloration. ENMT: Oral/pharyngeal mucosa is normal in appearance. Eyes: Sclera is white. There is no discharge from eyes. Respiratory: Normal breath sounds; no crackles or wheezes. CV: Heart is regular; no gallop or murmur. GI: Abdomen is mildly tender in the lower half; mostly on the right side. There is no palpable mass or visceromegaly. Neuro: There is no focal deficits. ASSESSMENT AND PLAN: The patient was admitted with abdominal pain, nausea/vomiting. Lipase was about 200. We made the diagnosis of acute pancreatitis. She has history of chronic diarrhea. We will advance her diet to regular. To continue Questran and Bentyl. She is on oral Protonix. Dehydration. Resolved. Type 2 diabetes mellitus, diet controlled. To continue when necessary insulin Humalog. Hypertension. Under control. Her Lopressor is on hold. Disposition: I anticipate her discharge home tomorrow after lunch. - Exam Vitals: Temp Pulse Resp BP Pulse Ox 98.1 F 72 15 121/81 93 05/13/18 05:23 05/13/18 05:23 05/13/18 05:23 05/13/18 05:23 05/13/18 05:23 Exam: xx - Assessment and Plan (1) Acute pancreatitis Current Visit: Yes Status: Acute (2) Diarrhea Current Visit: Yes Status: Acute (3) Dehydration Current Visit: Yes Status: Resolved (4) Type 2 diabetes mellitus Current Visit: Yes Status: Chronic (5) HTN (hypertension) Current Visit: Yes Status: Chronic - Time Spent with Patient Total time spent is greater than 50% in coordination of care (as documented) at patient's floor/unit and/or counseling patient: 25 - 35 minutes Plan of Care Discussed with: patient Internal Medicine: Result - Labs CBC & Chem 7: 05/11/18 04:26 05/11/18 04:26 Consult Discharge Plan - Plan Referrals: Rocio Castellano MD [Primary Care Provider] - (1) Acute pancreatitis Qualifiers: Pancreatitis type: idiopathic Acute pancreatitis complication: unspecified Qualified Code(s): K85.00 - Idiopathic acute pancreatitis without necrosis or infection (2) Diarrhea Qualifiers: Diarrhea type: unspecified type Qualified Code(s): R19.7 - Diarrhea, unspecified (4) Type 2 diabetes mellitus Qualifiers: Diabetes mellitus termite helper insulin use: without usp use Diabetes mellitus complication status: without complication Qualified Code(s): E11.9 - Type 2 diabetes mellitus without complications
[2018-05-13 06:52] VITALS: BP 111/71
[2018-05-13] MEDS: Cholestyramine 4 GM POWD.PACK PO SCH (08:16)
[2018-05-13] MEDS: Acetaminophen 325 MG TABLET PO PRN (08:18)
--- NOTE | 2018-05-13 09:45 | Discharge Summary ---
Date of Encounter: 05/13/18 Time of Encounter: 09:42 - Discharge Diagnosis (1) Dehydration Priority: Secondary Status: Resolved (2) Acute pancreatitis Priority: Primary Status: Resolved Qualifiers: Pancreatitis type: idiopathic Acute pancreatitis complication: unspecified Qualified Code(s): K85.00 - Idiopathic acute pancreatitis without necrosis or infection (3) Diarrhea Priority: Secondary Status: Resolved Qualifiers: Diarrhea type: unspecified type Qualified Code(s): R19.7 - Diarrhea, unspecified (4) Type 2 diabetes mellitus Priority: Secondary Status: Chronic Qualifiers: Diabetes mellitus skilled nursing insulin use: without card mounter use Diabetes me llitus complication status: without complication Qualified Code(s): E11.9 - Type 2 diabetes mellitus without complications (5) HTN (hypertension) Priority: Secondary Status: Chronic Qualifiers: Hypertension type: essential hypertension Qualified Code(s): I10 - Essential (primary) hypertension Hospital course: Ms. Lloyd is a 73 year old female who presents with a 5-6 day history of protracted nausea and vomiting followed by abdominal pain, which started over the last 24 hours. Because of the abdominal pain onset, she came to ER for evaluation where she was found to have evidence of pancreatitis. She was subsequently admitted to hospitalist service. she was dehydrated but otherwise in no acute distress. She confirms the almost weeklong history of nausea and vomiting. She states she has history of gastroparesis and is used to having episodes of protracted nausea and vomiting. However, her abdominal pain was new in onset. She has no gallbladder and had a cholecystectomy about 3 years ago. She does not drink any alcohol. She denies any diarrhea, fevers, chills, or jaundice skin discoloration. She denies any history of peptic ulcer disease or significant GI upset. Abdomen/Pelvis CT 05/07/18 15:22 IMPRESSION: 1. Fluid in the colon. This is in keeping with clinical history of diarrhea. No evidence of bowel obstruction to account for vomiting. 2. Sigmoid and descending colon diverticulosis. No evidence of diverticulitis. 3. Cholecystectomy. 4. Small to moderate hiatal hernia. 5. 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 (1) Acute pancreatitis resolved, tolerated diet , no abdominal apin Current Visit: Yes Status: Acute (2)nausea and vomiting and Diarrhea, possible acute viral gastroenteritis, VS diabetic gastroparesis exacerbation, resolved Current Visit: Yes Status: Acute (3) Dehydration from nausea and vomiting, resolved. Current Visit: Yes Status: Resolved (4) Type 2 diabetes mellitus, with diabetic gastroparesis Current Visit: Yes Status: Chronic (5) HTN (hypertension), .continue home meds Current Visit: Yes Status: Chronic discharge home on stable condition Discharge discussed with: patient Time spent discussing smoking cessation with patient: 3 to 10 minutes - Time Spent with Patient Total time spent providing and/or coordinating discharge services: Greater than 30 minutes - Discharge Medications Home Medications: Aspirin Enteric Coated [Aspirin EC] 81 mg PO HS 02/24/15 [History] Metoprolol [Lopressor] 25 mg PO BID 02/24/15 [History] Niacin 500 mg PO DAILY 02/24/15 [History] Pantoprazole Sodium [Protonix] 40 mg PO DAILY 02/24/15 [History] Pravastatin Sodium [Pravachol] 40 mg PO DAILY 05/10/16 [History] hydrOXYzine HCl [Hydroxyzine HCl] 25 mg PO TID 05/10/16 [History] Ondansetron ODT [Zofran ODT] 4 mg SL Q6HR PRN #10 tab.rapdis 11/04/17 [Rx] Metoclopramide [Reglan] 5 ml PO BIDWM 11/05/17 [History] Acetaminophen [Tylenol] 1,000 mg PO Q6HR PRN 05/07/18 [History] Cholecalciferol (D-3) [Vitamin D] 1,000 unit PO DAILY 05/07/18 [History] Escitalopram [Lexapro] 10 mg PO DAILY 05/07/18 [History] Melatonin 5 mg PO HS 05/07/18 [History] Sucralfate [Carafate] 1 gm PO TID 05/07/18 [History] Allergies/Adverse Reactions: Allergy/AdvReac Type Severity Reaction Status Date / Time Penicillins [PCN] Allergy Severe See Verified 05/07/18 21:31 Comments Sulfa (Sulfonamide Allergy Severe See Verified 05/07/18 21:31 Antibiotics) Comments lorazepam [From Ativan] AdvReac Severe Hallucinati Verified 05/07/18 21:31 ng Date of admission: 05/08/18 16:33 Primary care physician: Rocio Castellano - Constitutional Vitals: Temp Pulse Resp BP Pulse Ox 98.3 F 76 16 111/71 96 05/13/18 06:51 05/13/18 06:51 05/13/18 06:51 05/13/18 06:51 05/13/18 06:51 General appearance: Present: cooperative, A&O X 3, pleasant, no acute distress Exam: CONSTITUTIONAL: patient appears as an age appropriate female in no acute distress. EYES Clear sclerae, bilateral pupils are equal, reactive to light. EMOI. RESPIRATORY: No accessory muscle use, bilateral clear to auscultation, no wheezing, no crackles/rales. CARDIOVASCULAR: Regular heart rate, normal S1 and S2, no murmurs GASTROINTESTINAL: bowel sounds present, soft, no tenderness. MUSCULOSKELETAL: Joints in normal range of motion, no clubbing, no edema, no cyanosis. Bilateral peripheral pulses 2+. NEUROLOGIC: CN II to XII are grossly intact, no focal neurological deficit. - Patient Status Disposition: Home, Self-Care Condition: Fair Overall status at discharge: patient is back to baseline - Discharge Instructions Follow Up With: Rocio Castellano MD [Primary Care Provider] -
--- NOTE | 2018-05-13 10:37 | Physician Discharge Referral ---
Home Health/Hosp Referral Info Provider in Charge Post Discharge: PCP - Diagnosis (1) Dehydration Status: Resolved (2) Acute pancreatitis Status: Resolved (3) Diarrhea Status: Resolved (4) Type 2 diabetes mellitus Status: Chronic (5) HTN (hypertension) Status: Chronic - Respiratory Orders Smoking Cessation: Smoking cessation has been advised. For more information, call the [place] Tobacco Quit Line at 8-490-RKUH-NOW. - Services Needed Following services are medically necessary services: Nursing, Physical Therapy - Transfer Medications Home Medications: Aspirin Enteric Coated [Aspirin EC] 81 mg PO HS 02/24/15 [History] Metoprolol [Lopressor] 25 mg PO BID 02/24/15 [History] Niacin 500 mg PO DAILY 02/24/15 [History] Pantoprazole Sodium [Protonix] 40 mg PO DAILY 02/24/15 [History] Pravastatin Sodium [Pravachol] 40 mg PO DAILY 05/10/16 [History] hydrOXYzine HCl [Hydroxyzine HCl] 25 mg PO TID 05/10/16 [History] Ondansetron ODT [Zofran ODT] 4 mg SL Q6HR PRN #10 tab.rapdis 11/04/17 [Rx] Metoclopramide [Reglan] 5 ml PO BIDWM 11/05/17 [History] Acetaminophen [Tylenol] 1,000 mg PO Q6HR PRN 05/07/18 [History] Cholecalciferol (D-3) [Vitamin D] 1,000 unit PO DAILY 05/07/18 [History] Escitalopram [Lexapro] 10 mg PO DAILY 05/07/18 [History] Melatonin 5 mg PO HS 05/07/18 [History] Sucralfate [Carafate] 1 gm PO TID 05/07/18 [History] Allergies/Adverse Reactions: Allergy/AdvReac Type Severity Reaction Status Date / Time Penicillins [PCN] Allergy Severe See Verified 05/07/18 21:31 Comments Sulfa (Sulfonamide Allergy Severe See Verified 05/07/18 21:31 Antibiotics) Comments lorazepam [From Ativan] AdvReac Severe Hallucinati Verified 05/07/18 21:31 ng Certification: Further, I certify that my clinical findings support that this patient is homebound (i.e. absences from home require considerable and taxing effort and are for medical reasons or hindu services or infrequently or short duration when for other reasons) because: Homebound Reason: Patient requires assistance of a person or device to safely leave home Attestation: My signature below is to certify that this patient is under my care and that I, or nurse practitioner, or a physician's sales assistant entertainment and media working with me, has a [id number] encounter with this patient.
== END 2018-05-13 10:48 | disposition home health service (06) | DRG 440 ==
LOC: 3ANU 15:17 → EMEROOARM 15:17 → SUATTDRO 17:53 → 3ANU 18:51 → SUATTDRO 05-08 16:33
PROVIDERS: ADMIT Internal Medicine; ATTEND Hospitalist

== ENCOUNTER 2018-05-18 20:39 | Observation (INO) ==
[2018-05-18] MEDS ORDERED: Promethazine 12.5 MG in 0.9 % Sodium Chloride 50 ML IVPB ONE (20:42)
--- NOTE | 2018-05-18 20:43 | Emergency Department Note ---
Disposition Clinical Impression: Dehydration, Hypokalemia, Prolonged Q-T interval on ECG Intractable nausea and vomiting Qualifiers: Vomiting type: unspecified Qualified Code(s): R11.2 - Nausea with vomiting, unspecified Urinary tract infection Qualifiers: Urinary tract infection type: site unspecified Hematuria presence: without hematuria Qualified Code(s): N39.0 - Urinary tract infection, site not specified Disposition: Admitted As Inpatient Condition: Good Referrals: NONE,PCP [Primary Care Provider] - Forms: ED Satisfaction Letter General Adult HPI - General Stated complaint: Vomiting Time Seen by Provider: 05/18/18 20:40 - Related Data Home Medications Medication Instructions Recorded Confirmed Aspirin Enteric Coated [Aspirin EC] 81 mg PO HS 02/24/15 05/07/18 Metoprolol [Lopressor] 25 mg PO BID 02/24/15 05/07/18 Niacin 500 mg PO DAILY 02/24/15 05/07/18 Pantoprazole Sodium [Protonix] 40 mg PO DAILY 02/24/15 05/07/18 Pravastatin Sodium [Pravachol] 40 mg PO DAILY 05/10/16 05/07/18 hydrOXYzine HCl [Hydroxyzine HCl] 25 mg PO TID 05/10/16 05/07/18 Metoclopramide [Reglan] 5 ml PO BIDWM 11/05/17 05/07/18 Acetaminophen [Tylenol] 1,000 mg PO Q6HR PRN 05/07/18 05/07/18 Cholecalciferol (D-3) [Vitamin D] 1,000 unit PO DAILY 05/07/18 05/07/18 Escitalopram [Lexapro] 10 mg PO DAILY 05/07/18 05/07/18 Melatonin 5 mg PO HS 05/07/18 05/07/18 Sucralfate [Carafate] 1 gm PO TID 05/07/18 05/07/18 Previous Rx's Medication Instructions Recorded Ondansetron ODT [Zofran ODT] 4 mg SL Q6HR PRN #10 tab.rapdis 11/04/17 Ondansetron ODT [Zofran ODT] 4 mg SL Q6HR PRN #12 tab.rapdis 05/16/18 Allergies Allergy/AdvReac Type Severity Reaction Status Date / Time Penicillins [PCN] Allergy Severe See Verified 05/07/18 21:31 Comments Sulfa (Sulfonamide Allergy Severe See Verified 05/07/18 21:31 Antibiotics) Comments lorazepam [From Ativan] AdvReac Severe Hallucinati Verified 05/07/18 21:31 ng Past Medical History - Past Medical History Medical history: Reports: arthritis, CVA, diabetes, hyperlipidemia, hypertension, TIA Surgical history: Reports: cholecystectomy Psychiatric history: Reports: anxiety, depression 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 - Social History Smoking Status: Never smoker Smokeless Tobacco Status: No Alcohol use: Reports: none Drug use: Reports: none Course Vital Signs Temperature 100.9 F H 05/18/18 20:45 Pulse Rate 66 05/18/18 20:45 Respiratory Rate 18 05/18/18 20:45 Blood Pressure 108/61 05/18/18 20:45 O2 Sat by Pulse Oximetry 93 05/18/18 20:45 Temperature 100.9 F H 05/18/18 20:45 Pulse Rate 67 05/18/18 22:43 Respiratory Rate 18 05/18/18 22:43 Blood Pressure 106/58 05/18/18 22:43 O2 Sat by Pulse Oximetry 95 05/18/18 22:43 Oxygen Delivery Oxygen Delivery Room Air Medical Decision Making - Lab Data Result diagrams: 05/18/18 20:51 05/18/18 20:51 Lab Results 05/18/18 05/18/18 05/18/18 Range/Units 20:51 20:51 20:51 WBC 7.1 (4.3-11.1) K/mcL RBC 5.07 H (3.82-4.97) M/mcL Hgb 14.8 (11.5-15.4) g/dL Hct 43.8 (35.3-44.9) % MCV 86.4 (83.0-100.0) fL MCH 29.2 (28.0-33.3) pg MCHC 33.8 (31.6-35.5) g/dL RDW 12.8 (11.5-14.5) % Plt Count 292 (140-400) K/mcL MPV 9.0 L (9.4-12.4) fL Immature Gran % 0.4 (0-4) % Seg Neutrophils % 90.6 % Lymphocytes % 6.5 % Monocytes % 2.4 % Eosinophils % 0.0 % Basophils % 0.1 % Neutrophils # 6.4 (1.6-8.9) K/mcL Lymphocytes # 0.5 L (0.6-4.6) K/mcL Monocytes # 0.2 (0.0-1.3) K/mcL Eosinophils # 0.0 (0.0-0.6) K/mcL Basophils # 0.0 (0.0-0.2) K/mcL PT 11.8 (9.4-12.1) Seconds INR 1.0 Sodium 136 (136-145) mEq/L Potassium 3.1 L (3.5-5.1) mEq/L Chloride 99 (98-107) mEq/L Carbon Dioxide 25 (23-29) mEq/L BUN 19 (8-23) mg/dL Creatinine 0.75 (0.60-1.20) mg/dL Est GFR ( Amer) > 60 (> 60) Est GFR (Non-Af Amer) > 60 (> 60) BUN/Creatinine Ratio 25 (6-26) Glucose 154 H (70-105) mg/dL Calculated Osmolality 287 (280-300) Lactic Acid (0.5-2.2) mmol/L Calcium 9.3 (8.6-10.3) mg/dL Magnesium 1.6 (1.6-2.6) mg/dL Total Bilirubin 0.6 (0.3-1.0) mg/dL AST 19 (13-39) Units/L ALT 24 (7-52) Units/L Alkaline Phosphatase 73 (34-104) Units/L Troponin I < 0.03 (< 0.04) ng/mL Serum Total Protein 6.9 (6.4-8.9) g/dL Albumin 3.9 (3.5-5.7) g/dL Globulin 3.0 (2.4-3.5) g/dL Albumin/Globulin Ratio 1.3 (1.1-2.2) Lipase 57 (11-82) Units/L Ur Specimen Adequacy Urine Color (Yellow) Urine Clarity (Clear) Urine pH (5.0-8.0) pH Units Ur Specific [place] (1.010-1.025) Urine Protein (Neg-Trace) mg/dL Urine Glucose (UA) (Normal) mg/dL Urine Ketones (Negative) mg/dL Urine Blood (Negative) Urine Nitrite (Negative) Urine Bilirubin (Negative) Urine Urobilinogen (Normal) mg/dL Ur Leukocyte Esterase (Negative) Urine Microscopic RBC (0-3) per hpf Urine Microscopic WBC (0-3) per hpf Ur Squamous Epith Cells (None-Few) per lpf Urine Bacteria (None-Few) per hpf Hyaline Casts Urine Mucus (Few) 05/18/18 05/18/18 Range/Units 20:51 21:02 WBC (4.3-11.1) K/mcL RBC (3.82-4.97) M/mcL Hgb (11.5-15.4) g/dL Hct (35.3-44.9) % MCV (83.0-100.0) fL MCH (28.0-33.3) pg MCHC (31.6-35.5) g/dL RDW (11.5-14.5) % Plt Count (140-400) K/mcL MPV (9.4-12.4) fL Immature Gran % (0-4) % Seg Neutrophils % % Lymphocytes % % Monocytes % % Eosinophils % % Basophils % % Neutrophils # (1.6-8.9) K/mcL Lymphocytes # (0.6-4.6) K/mcL Monocytes # (0.0-1.3) K/mcL Eosinophils # (0.0-0.6) K/mcL Basophils # (0.0-0.2) K/mcL PT (9.4-12.1) Seconds INR Sodium (136-145) mEq/L Potassium (3.5-5.1) mEq/L Chloride (98-107) mEq/L Carbon Dioxide (23-29) mEq/L BUN (8-23) mg/dL Creatinine (0.60-1.20) mg/dL Est GFR ( Amer) (> 60) Est GFR (Non-Af Amer) (> 60) BUN/Creatinine Ratio (6-26) Glucose (70-105) mg/dL Calculated Osmolality (280-300) Lactic Acid 1.2 (0.5-2.2) mmol/L Calcium (8.6-10.3) mg/dL Magnesium (1.6-2.6) mg/dL Total Bilirubin (0.3-1.0) mg/dL AST (13-39) Units/L ALT (7-52) Units/L Alkaline Phosphatase (34-104) Units/L Troponin I (< 0.04) ng/mL Serum Total Protein (6.4-8.9) g/dL Albumin (3.5-5.7) g/dL Globulin (2.4-3.5) g/dL Albumin/Globulin Ratio (1.1-2.2) Lipase (11-82) Units/L Ur Specimen Adequacy See below A Urine Color Dark Yellow (Yellow) Urine Clarity Cloudy A (Clear) Urine pH 5.5 (5.0-8.0) pH Units Ur Specific [place] 1.024 (1.010-1.025) Urine Protein 100 H (Neg-Trace) mg/dL Urine Glucose (UA) Normal (Normal) mg/dL Urine Ketones 80 H (Negative) mg/dL Urine Blood Negative (Negative) Urine Nitrite Negative (Negative) Urine Bilirubin Negative (Negative) Urine Urobilinogen Normal (Normal) mg/dL Ur Leukocyte Esterase Moderate H (Negative) Urine Microscopic RBC 0-3 (0-3) per hpf Urine Microscopic WBC 50-100 H (0-3) per hpf Ur Squamous Epith Cells Moderate H (None-Few) per lpf Urine Bacteria Moderate H (None-Few) per hpf Hyaline Casts Test Not Performed Urine Mucus Present (Few) Attestation Statement - Attestation Attestation: I examined this patient and my medical decision-making was reviewed with the Resident Physician. I agree with the documented findings, disposition and treatment plan as described except to the extent set forth below. [id number] time provided Patient arrives by EMS with continued nausea and vomiting. She was seen with similar symptoms. She was admitted last week with a mild elevation of her lipase. She is actively retching upon arrival
[2018-05-18 21:04] LABS: Basophils % 0.1 %; Hematocrit 43.8 % (35.3-44.9); Hemoglobin 14.8 g/dL (11.5-15.4); Immature Granulocytes % 0.4 % (0-4); Lymphocytes # 0.5 K/mcL (0.6-4.6); Lymphocytes % 6.5 %; Mean Corpuscular HGB Conc 33.8 g/dL (31.6-35.5); Mean Corpuscular Hemoglobin 29.2 pg (28.0-33.3); Mean Corpuscular Volume 86.4 fL (83.0-100.0); Monocytes # 0.2 K/mcL (0.0-1.3); Monocytes % 2.4 %; Neutrophils # 6.4 K/mcL (1.6-8.9); Platelet Count 292 K/mcL (140-400); Red Blood Count 5.07 M/mcL (3.82-4.97); Red Cell Distribution Width 12.8 % (11.5-14.5); Segmented Neutrophils % 90.6 %
[2018-05-18 21:12] LABS: Prothrombin Time 11.8 Seconds (9.4-12.1)
[2018-05-18 21:23] LABS: Bilirubin,Urine Negative (Negative); Blood,Urine Negative (Negative); Clarity,Urine Cloudy (Clear); Color,Urine Dark Yellow (Yellow); Glucose,Urine (UA) Normal (Normal); Ketones,Urine 80 mg/dL (Negative); Leukocyte Esterase,Urine Moderate (Negative); Nitrite,Urine Negative (Negative); PH,Urine 5.5 pH Units (5.0-8.0); Protein,Urine 100 mg/dL (Neg-Trace); Specific Gravity,Urine 1.024 (1.010-1.025); Urobilinogen,Urine Normal (Normal)
[2018-05-18 21:25] LABS: Bacteria,Urine Moderate per hpf (None-Few); RBC,Urine 0-3 per hpf (0-3); Squamous Epithelial Cell,Urine Moderate per lpf (None-Few); WBC,Urine 50-100 per hpf (0-3)
[2018-05-18 21:26] LABS: Alanine Aminotransferase 24 Units/L (7-52); Albumin 3.9 g/dL (3.5-5.7); Albumin/Globulin Ratio 1.3 (1.1-2.2); Alkaline Phosphatase 73 Units/L (34-104); Aspartate Amino Transferase 19 Units/L (13-39); BUN/Creatinine Ratio 25 (6-26); Bilirubin,Total 0.6 mg/dL (0.3-1.0); Blood Urea Nitrogen 19 mg/dL (8-23); Calcium 9.3 mg/dL (8.6-10.3); Carbon Dioxide 25 mEq/L (23-29); Chloride 99 mEq/L (98-107); Glucose 154 mg/dL (70-105); Lipase 57 Units/L (11-82); Magnesium 1.6 mg/dL (1.6-2.6); Osmolality,Calculated 287 (280-300); Potassium 3.1 mEq/L (3.5-5.1); Sodium 136 mEq/L (136-145); Total Protein 6.9 g/dL (6.4-8.9); eGFR For Non-African Americans > 60 (> 60)
[2018-05-18 21:27] LABS: Troponin I < 0.03 ng/mL (< 0.04)
[2018-05-18] MEDS ORDERED: Potassium Chloride 20 MEQ, Lidocaine 1% 2 ML in D5% in Water 250 ML IVPB ONE (21:27)
[2018-05-18 21:32] LABS: Mucus,Urine Present (Few)
[2018-05-18] MEDS ORDERED: 0.9 % Sodium Chloride 1,000 ML IVC ONE (21:34)
[2018-05-18] MEDS ORDERED: cefTRIAXone 1,000 MG in Water for inj. (sterile) 20 ML 10 ML IVP ONE (21:36)
--- NOTE | 2018-05-18 21:47 | Emergency Department Note ---
Disposition Clinical Impression: Dehydration, Hypokalemia Intractable nausea and vomiting Qualifiers: Vomiting type: unspecified Qualified Code(s): R11.2 - Nausea with vomiting, unspecified Urinary tract infection Qualifiers: Urinary tract infection type: site unspecified Hematuria presence: without hematuria Qualified Code(s): N39.0 - Urinary tract infection, site not specified Disposition: Admitted As Inpatient Condition: Good Referrals: NONE,PCP [Primary Care Provider] - Forms: ED Satisfaction Letter Time of Disposition: 22:44 Nausea/Vomiting/Diarrhea HPI - General Chief complaint: ED Nausea/Vomiting/Diarrhea Stated complaint: Vomiting Time Seen by Provider: 05/18/18 20:40 Source: patient, EMS Limitations: no limitations Nursing Notes Reviewed: Yes Vital Signs Reviewed: Yes - History of Present Illness HPI Narrative: 73-year-old female with history of diabetes and gastroparesis presents to the emergency department with nausea vomiting. This is been ongoing for the past 48 hours. She states she had up to 20 episodes of nonbloody emesis. She was nauseated yesterday and Zofran and had helped. Today it was not working. She was recently evaluated here in the emergency department 2 days ago for similar symptoms which did resolved with Zofran. Approximately 1 week ago patient presented with similar complaints and was diagnosed with mild pancreatitis and was discharged 5 days ago. She reports some lower abdominal discomfort. She denies any urinary symptoms. She denies any fever, cough or shortness of breath. She does report in episode of chest pain after an episode of vomiting. The chest pain is now pressure and has improved slightly. She denies any syncope. History of cholecystectomy. Denies alcohol use. - Related Data Home Medications Medication Instructions Recorded Confirmed Aspirin Enteric Coated [Aspirin EC] 81 mg PO HS 02/24/15 05/07/18 Metoprolol [Lopressor] 25 mg PO BID 02/24/15 05/07/18 Niacin 500 mg PO DAILY 02/24/15 05/07/18 Pantoprazole Sodium [Protonix] 40 mg PO DAILY 02/24/15 05/07/18 Pravastatin Sodium [Pravachol] 40 mg PO DAILY 05/10/16 05/07/18 hydrOXYzine HCl [Hydroxyzine HCl] 25 mg PO TID 05/10/16 05/07/18 Metoclopramide [Reglan] 5 ml PO BIDWM 11/05/17 05/07/18 Acetaminophen [Tylenol] 1,000 mg PO Q6HR PRN 05/07/18 05/07/18 Cholecalciferol (D-3) [Vitamin D] 1,000 unit PO DAILY 05/07/18 05/07/18 Escitalopram [Lexapro] 10 mg PO DAILY 05/07/18 05/07/18 Melatonin 5 mg PO HS 05/07/18 05/07/18 Sucralfate [Carafate] 1 gm PO TID 05/07/18 05/07/18 Previous Rx's Medication Instructions Recorded Ondansetron ODT [Zofran ODT] 4 mg SL Q6HR PRN #10 tab.rapdis 11/04/17 Ondansetron ODT [Zofran ODT] 4 mg SL Q6HR PRN #12 tab.rapdis 05/16/18 Allergies Allergy/AdvReac Type Severity Reaction Status Date / Time Penicillins [PCN] Allergy Severe See Verified 05/07/18 21:31 Comments Sulfa (Sulfonamide Allergy Severe See Verified 05/07/18 21:31 Antibiotics) Comments lorazepam [From Ativan] AdvReac Severe Hallucinati Verified 05/07/18 21:31 ng All systems ED: reviewed and negative except as stated. Review of Systems: As Per HPI Constitutional: Denies: fever, chills ENT ED: Denies: congestion Cardiovascular: Reports: chest pain. Denies: syncope Respiratory: Denies: dyspnea Gastrointestinal: Reports: abdominal pain, nausea, vomiting Genitourinary: Denies: urgency, dysuria Musculoskeletal: Denies: back pain Integumentary: Denies: rash, abrasion Neurological: Denies: headache, weakness, numbness Past Medical History - Past Medical History Attestation: Yes The following information was validated with the patient. 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 Absent: tenderness - Respiratory Respiratory exam: Present: normal lung sounds bilaterally. Absent: respiratory distress, wheezes - Cardiovascular Cardiovascular exam: Present: regular rate, normal rhythm, normal heart sounds. Absent: systolic murmur, diastolic murmur - Abdominal Exam Abdominal exam: Present: soft, tenderness, normal bowel sounds. Absent: Non- Tender, distention, guarding, rebound, rigidity, tenderness at McBurney's Point Abdominal tenderness: Present: suprapubic - Extremities Exam Extremities exam: Present: normal inspection, full ROM, normal capillary refill. Absent: tenderness, pedal edema - Back Exam Back exam: Present: normal inspection, full ROM. Absent: tenderness - Neurological Exam Neurological exam: Present: alert, oriented X3 - Psychiatric Psychiatric exam: Present: normal affect, normal mood - Skin Skin exam: Present: warm, dry, intact, normal color. Absent: rash, cyanosis, diaphoresis Course Course Narrative: Patient presents with persistent nausea vomiting even with Zofran use. She reports some diffuse abdominal pain mostly in the suprapubic region. Similar episode over the past week requiring admission. Recently evaluated in no real presents with similar symptoms. Patient will get labs including a chest x-ray urinalysis and CT scan she is febrile. She reports some chest discomfort after vomiting and will evaluate for any free air. Patient will likely require admission for intractable nausea and vomiting. Phenergan for nausea as she has been using Zofran without relief at home. - Reevaluation(s) Reevaluation #1: Chest x-ray did not reveal any pneumonia or free air. Urinalysis appears contaminated however this was a straight catheterization. Given her fever this could be the source, patient given a dose of Rocephin. She also had 80 ketones and will be administered fluid for possible dehydration. Review for other labs show hypokalemia which will be repleted here. EKG showed prolonged CT. Her magnesium is 1.6. CT scan is pending. Impression is intractable nausea vomiting, hypokalemia, dehydration and urinary tract infection Time: 22:43 - Consultations Consultation #1: HSpoke with on-call hospitalist juan r Richards to admit for intractable nausea/vomiting, dehydration, hypokalemia, UTI. No further orders at this time Time: 23:00 Vital Signs Temperature 100.9 F H 05/18/18 20:45 Pulse Rate 66 05/18/18 20:45 Respiratory Rate 18 05/18/18 20:45 Blood Pressure 108/61 05/18/18 20:45 O2 Sat by Pulse Oximetry 93 05/18/18 20:45 Temperature 100.9 F H 05/18/18 20:45 Pulse Rate 67 05/18/18 22:43 Respiratory Rate 18 05/18/18 22:43 Blood Pressure 106/58 05/18/18 22:43 O2 Sat by Pulse Oximetry 95 05/18/18 22:43 Oxygen Delivery Oxygen Delivery Room Air Nausea/Vomiting/Diarrhea - MDM Narrative Medical decision making narrative: Patient was discussed with my attending physician who agrees with ED management and final disposition. They independently evaluated the patient. Please refer to their attestation to this encounter for additional information. This note was generated by [employer] voice recognition software and as a result grammatical or spelling errors may occur using this program. - Medical Records Medical records reviewed: Yes I reviewed the patient's medical records. - Lab Data Lab results reviewed: Yes I reviewed the patient's lab results. Result diagrams: 05/18/18 20:51 05/18/18 20:51 Lab Results 05/18/18 05/18/18 05/18/18 Range/Units 20:51 20:51 20:51 WBC 7.1 (4.3-11.1) K/mcL RBC 5.07 H (3.82-4.97) M/mcL Hgb 14.8 (11.5-15.4) g/dL Hct 43.8 (35.3-44.9) % MCV 86.4 (83.0-100.0) fL MCH 29.2 (28.0-33.3) pg MCHC 33.8 (31.6-35.5) g/dL RDW 12.8 (11.5-14.5) % Plt Count 292 (140-400) K/mcL MPV 9.0 L (9.4-12.4) fL Immature Gran % 0.4 (0-4) % Seg Neutrophils % 90.6 % Lymphocytes % 6.5 % Monocytes % 2.4 % Eosinophils % 0.0 % Basophils % 0.1 % Neutrophils # 6.4 (1.6-8.9) K/mcL Lymphocytes # 0.5 L (0.6-4.6) K/mcL Monocytes # 0.2 (0.0-1.3) K/mcL Eosinophils # 0.0 (0.0-0.6) K/mcL Basophils # 0.0 (0.0-0.2) K/mcL PT 11.8 (9.4-12.1) Seconds INR 1.0 Sodium 136 (136-145) mEq/L Potassium 3.1 L (3.5-5.1) mEq/L Chloride 99 (98-107) mEq/L Carbon Dioxide 25 (23-29) mEq/L BUN 19 (8-23) mg/dL Creatinine 0.75 (0.60-1.20) mg/dL Est GFR ( Amer) > 60 (> 60) Est GFR (Non-Af Amer) > 60 (> 60) BUN/Creatinine Ratio 25 (6-26) Glucose 154 H (70-105) mg/dL Calculated Osmolality 287 (280-300) Lactic Acid (0.5-2.2) mmol/L Calcium 9.3 (8.6-10.3) mg/dL Magnesium 1.6 (1.6-2.6) mg/dL Total Bilirubin 0.6 (0.3-1.0) mg/dL AST 19 (13-39) Units/L ALT 24 (7-52) Units/L Alkaline Phosphatase 73 (34-104) Units/L Troponin I < 0.03 (< 0.04) ng/mL Serum Total Protein 6.9 (6.4-8.9) g/dL Albumin 3.9 (3.5-5.7) g/dL Globulin 3.0 (2.4-3.5) g/dL Albumin/Globulin Ratio 1.3 (1.1-2.2) Lipase 57 (11-82) Units/L Ur Specimen Adequacy Urine Color (Yellow) Urine Clarity (Clear) Urine pH (5.0-8.0) pH Units Ur Specific [place] (1.010-1.025) Urine Protein (Neg-Trace) mg/dL Urine Glucose (UA) (Normal) mg/dL Urine Ketones (Negative) mg/dL Urine Blood (Negative) Urine Nitrite (Negative) Urine Bilirubin (Negative) Urine Urobilinogen (Normal) mg/dL Ur Leukocyte Esterase (Negative) Urine Microscopic RBC (0-3) per hpf Urine Microscopic WBC (0-3) per hpf Ur Squamous Epith Cells (None-Few) per lpf Urine Bacteria (None-Few) per hpf Hyaline Casts Urine Mucus (Few) 05/18/18 05/18/18 Range/Units 20:51 21:02 WBC (4.3-11.1) K/mcL RBC (3.82-4.97) M/mcL Hgb (11.5-15.4) g/dL Hct (35.3-44.9) % MCV (83.0-100.0) fL MCH (28.0-33.3) pg MCHC (31.6-35.5) g/dL RDW (11.5-14.5) % Plt Count (140-400) K/mcL MPV (9.4-12.4) fL Immature Gran % (0-4) % Seg Neutrophils % % Lymphocytes % % Monocytes % % Eosinophils % % Basophils % % Neutrophils # (1.6-8.9) K/mcL Lymphocytes # (0.6-4.6) K/mcL Monocytes # (0.0-1.3) K/mcL Eosinophils # (0.0-0.6) K/mcL Basophils # (0.0-0.2) K/mcL PT (9.4-12.1) Seconds INR Sodium (136-145) mEq/L Potassium (3.5-5.1) mEq/L Chloride (98-107) mEq/L Carbon Dioxide (23-29) mEq/L BUN (8-23) mg/dL Creatinine (0.60-1.20) mg/dL Est GFR ( Amer) (> 60) Est GFR (Non-Af Amer) (> 60) BUN/Creatinine Ratio (6-26) Glucose (70-105) mg/dL Calculated Osmolality (280-300) Lactic Acid 1.2 (0.5-2.2) mmol/L Calcium (8.6-10.3) mg/dL Magnesium (1.6-2.6) mg/dL Total Bilirubin (0.3-1.0) mg/dL AST (13-39) Units/L ALT (7-52) Units/L Alkaline Phosphatase (34-104) Units/L Troponin I (< 0.04) ng/mL Serum Total Protein (6.4-8.9) g/dL Albumin (3.5-5.7) g/dL Globulin (2.4-3.5) g/dL Albumin/Globulin Ratio (1.1-2.2) Lipase (11-82) Units/L Ur Specimen Adequacy See below A Urine Color Dark Yellow (Yellow) Urine Clarity Cloudy A (Clear) Urine pH 5.5 (5.0-8.0) pH Units Ur Specific [place] 1.024 (1.010-1.025) Urine Protein 100 H (Neg-Trace) mg/dL Urine Glucose (UA) Normal (Normal) mg/dL Urine Ketones 80 H (Negative) mg/dL Urine Blood Negative (Negative) Urine Nitrite Negative (Negative) Urine Bilirubin Negative (Negative) Urine Urobilinogen Normal (Normal) mg/dL Ur Leukocyte Esterase Moderate H (Negative) Urine Microscopic RBC 0-3 (0-3) per hpf Urine Microscopic WBC 50-100 H (0-3) per hpf Ur Squamous Epith Cells Moderate H (None-Few) per lpf Urine Bacteria Moderate H (None-Few) per hpf Hyaline Casts Test Not Performed Urine Mucus Present (Few) - Radiology Data Radiology results reviewed: Yes I reviewed the patient's radiology results. Chest X-Ray 05/18/18 21:35 IMPRESSION: No focal consolidation. D/ / Kwesi Winston / Kwesi Winston Interpreting Provider: Kwesi Winston Abdomen/Pelvis CT 05/18/18 20:41 IMPRESSION: Diverticulosis without scan evidence for diverticulitis or other acute process. D/ / Christ Robert MD / Christ Robert MD Interpreting Provider: Christ Robert MD - EKG Data EKG attestation: Yes I reviewed and interpreted this EKG. EKG results narrative: EKG performed 2053 normal sinus rhythm 62 beats per minute, normal axis, good R wave progression, no ST elevation or depression, Q waves is calculated 564. This appears consistent with prior EKG performed 05/16/2018 where the QTC was 575. No acute ischemic changes.
[2018-05-19] MEDS ORDERED: Naloxone 0.4 MG/ML INJ IVP PRN (05:39)
[2018-05-19] MEDS ORDERED: D5% in Water 1,000 ML IVC PRN (05:41)
[2018-05-19] MEDS ORDERED: *HR* Dextrose 50 % in Water (Syg) 50 ML SYRINGE IVP PRN (05:41)
[2018-05-19] MEDS ORDERED: Dextrose Gel 15 GM/37.5 ML TUBE PO PRN ×2 (05:41)
[2018-05-19] MEDS ORDERED: Potassium Chloride 40 MEQ, Lidocaine 1% 2 ML in D5% in Water 500 ML IVPB ONE (06:00)
[2018-05-19 06:18] LABS: Hemoglobin 13.3 g/dL (11.5-15.4); Mean Corpuscular HGB Conc 34.1 g/dL (31.6-35.5); Mean Corpuscular Hemoglobin 29.1 pg (28.0-33.3); Mean Corpuscular Volume 85.3 fL (83.0-100.0); Mean Platelet Volume 8.8 fL (9.4-12.4); Platelet Count 263 K/mcL (140-400); Red Blood Count 4.57 M/mcL (3.82-4.97); Red Cell Distribution Width 13.1 % (11.5-14.5)
[2018-05-19] MEDS: *HR* Heparin 5,000 UNIT/ML VIAL SQ SCH ×2 (06:27→17:13)
--- NOTE | 2018-05-19 06:32 | Internal Med History&Physical ---
Date of Encounter: 05/19/18 Time of Encounter: 04:15 Internal Medicine - H&P: HPI Chief complaint: Urinary tract infection Admitted From: Emergency Dept Plans for Post Hospital Care: Home History of present illness: Ms. Lloyd is a 73 year old female Patient presented to the emergency room with 2 day history of vomiting. She states that she had tried Zofran at home but it did not help. She was in the emergency room 2 days ago for similar complaint. She was admitted to the hospital about 12 days ago and diagnosed with acute pancreatitis, nausea vomiting and dehydration. She says currently she has right lower quadrant pain which has been going on for several weeks. She has a history of gastroparesis, diabetes and urinary tract infections. In the emergency room patient's CBC was within normal limits, BMP showed a potassium of 3.1. Acute initial temperature of 100.9. Urinalysis was positive for leukocyte esterase and bacteria. EKG showed prolonged QTC of 564. Urine culture was ordered and she was started on ceftriaxone. Upon my evaluation patient states that she is feeling much better. She was re sting comfortably in hospital bed. She denies chest pain, diarrhea, constipation, dysuria and nausea at this time. I discussed with her CODE STATUS and she stated that she wishes to not be resuscitated, does not want chest compressions nor intubation if it was required. Past Med Surg Social Fam HX - Past Medical History Medical history: arthritis, CVA, diabetes, hyperlipidemia, hypertension, TIA Additional medical history: 3 TIA's, diverticulitis Psychiatric history: anxiety, depression - Past Surgical History Surgical History: cholecystectomy - Social History Smoking Status: Never smoker Smokeless Tobacco Status: No Alcohol use: none Drug use: none - Family History Mother Living Status: Hx Family Cardiac Disorders: Yes Hx Family Respiratory Disorders: No Hx Family Cancer: No Hx Family GI Disorders: No Hx Family Endocrine Disorder: Yes Hx Family Neuromuscular Disorders: No Hx Family Neurologic Disorders: No Hx Family HEENT Disorders: No Hx Family Autoimmune Disorders: No Internal Medicine - H&P: Meds Aspirin Enteric Coated [Aspirin EC] 81 mg PO HS 02/24/15 [History] Metoprolol [Lopressor] 25 mg PO BID 02/24/15 [History] Niacin 500 mg PO DAILY 02/24/15 [History] Pantoprazole Sodium [Protonix] 40 mg PO DAILY 02/24/15 [History] Pravastatin Sodium [Pravachol] 40 mg PO DAILY 05/10/16 [History] hydrOXYzine HCl [Hydroxyzine HCl] 25 mg PO TID 05/10/16 [History] Ondansetron ODT [Zofran ODT] 4 mg SL Q6HR PRN #10 tab.rapdis 11/04/17 [Rx] Metoclopramide [Reglan] 5 ml PO BIDWM 11/05/17 [History] Acetaminophen [Tylenol] 1,000 mg PO Q6HR PRN 05/07/18 [History] Cholecalciferol (D-3) [Vitamin D] 1,000 unit PO DAILY 05/07/18 [History] Escitalopram [Lexapro] 10 mg PO DAILY 05/07/18 [History] Melatonin 5 mg PO HS 05/07/18 [History] Sucralfate [Carafate] 1 gm PO TID 05/07/18 [History] Ondansetron ODT [Zofran ODT] 4 mg SL Q6HR PRN #12 tab.rapdis 05/16/18 [Rx] Allergy/AdvReac Type Severity Reaction Status Date / Time Penicillins [PCN] Allergy Severe See Verified 05/07/18 21:31 Comments Sulfa (Sulfonamide Allergy Severe See Verified 05/07/18 21:31 Antibiotics) Comments lorazepam [From Ativan] AdvReac Severe Hallucinati Verified 05/07/18 21:31 ng All Systems PM: A 10-system review of systems was performed and is negative for pertinent findings except as documented above in the HPI. - Constitutional Vitals: Temp Pulse Resp BP Pulse Ox 98.6 F 57 16 99/62 92 05/19/18 01:20 05/19/18 01:20 05/19/18 01:20 05/19/18 01:20 05/19/18 01:20 General appearance: Present: cooperative, pleasant, no acute distress, answers questions appropriately Exam: - - Head Head exam: Present: normal inspection - Eye Eye exam: Present: EOMI, normal appearance - Respiratory Respiratory exam: Present: CTAB. Absent: rales, respiratory distress, wheezes - Cardiovascular Cardiovascular exam: Present: RRR. Absent: diastolic murmur, systolic murmur - GI/Abdominal GI/Abdominal exam: Present: normal bowel sounds, soft, tenderness Additional comments: Right-sided tenderness with palpation - Extremities Exam Extremities exam: Present: warm, radial pulses palpable and symmetrical. Absent: calf tenderness, pedal edema, tenderness - Neurological Exam Neurological exam: Present: no focal deficits, strengths equal and symetr throughout. Absent: motor sensory deficit, facial droop, speech deficit - Skin Skin exam: Present: dry, normal color, warm Internal Med - H&P Results - Labs CBC & Chem 7: 05/18/18 20:51 05/18/18 20:51 Labs: Short CBC 05/18/18 Range/Units 20:51 WBC 7.1 (4.3-11.1) K/mcL Hgb 14.8 (11.5-15.4) g/dL Hct 43.8 (35.3-44.9) % Plt Count 292 (140-400) K/mcL Neutrophils # 6.4 (1.6-8.9) K/mcL BMP 05/18/18 20:51 Sodium 136 Potassium 3.1 L Chloride 99 Carbon Dioxide 25 BUN 19 Creatinine 0.75 Glucose 154 H Calcium 9.3 Cardiac Enzymes 05/18/18 Range/Units 20:51 Troponin I < 0.03 (< 0.04) ng/mL Liver Function 05/18/18 Range/Units 20:51 Total Bilirubin 0.6 (0.3-1.0) mg/dL AST 19 (13-39) Units/L ALT 24 (7-52) Units/L Alkaline Phosphatase 73 (34-104) Units/L Albumin 3.9 (3.5-5.7) g/dL Urine 05/18/18 Range/Units 21:02 Urine Color Dark Yellow (Yellow) Urine Clarity Cloudy A (Clear) Urine pH 5.5 (5.0-8.0) pH Units Ur Specific [place] 1.024 (1.010-1.025) Urine Protein 100 H (Neg-Trace) mg/dL Urine Glucose (UA) Normal (Normal) mg/dL - Impressions ITS Impressions Abdomen/Pelvis CT 05/18/18 20:41 IMPRESSION: Diverticulosis without scan evidence for diverticulitis or other acute process. D/ / Christ Robert MD / Christ Robert MD Interpreting Provider: Christ Robert MD Chest X-Ray 05/18/18 21:35 IMPRESSION: No focal consolidation. D/ / Kwesi Winston / Kwesi Winston Interpreting Provider: Kwesi Winston - Assessment and plan (1) Urinary tract infection Current Visit: Yes Status: Acute Assessment and plan: s evidenced by patient's. She has a history of urinary tract infections in the past, most recently in November of this year. Continue ceftriaxone Follow up urine culture Qualifiers: Urinary tract infection type: site unspecified Hematuria presence: without hematuria Qualified Code(s): N39.0 - Urinary tract infection, site not specified (2) Nausea & vomiting Current Visit: No Status: Acute Assessment and plan: Improved with Phenergan. Will caution further use of Zofran and Phenergan due to increased QTC. Continue to monitor Qualifiers: Vomiting type: unspecified Vomiting Intractability: non-intractable Qualified Code(s): R11.2 - Nausea with vomiting, unspecified (3) Hypokalemia Current Visit: Yes Status: Acute Assessment and plan: Likely secondary to vomiting. Patient was given 20 mEq in the emergency room. Continue with 40 mEq potassium now Repeat labs in the morning (4) Prolonged Q-T interval on ECG Current Visit: Yes Status: Acute Assessment and plan: Repeat EKG, caution with QT prolonging medications. Patient takes Reglan and Lexapro which can prolong QT. We will hold these medicines for now Caution use of Phenergan and Zofran (5) Gastroparesis due to DM Current Visit: No Status: Acute Assessment and plan: Patient takes Reglan, which we are holding due to QT prolongation. Continue to monitor (6) Abdominal pain Current Visit: No Status: Acute Assessment and plan: She has chronic abdominal pain, recently admitted for pancreatitis. Pain resolved with pain medication. Continue to monitor Qualifiers: Abdominal location: right lower quadrant Qualified Code(s): R10.31 - Right lower quadrant pain (7) Type 2 diabetes mellitus Current Visit: No Status: Chronic Assessment and plan: Low-dose insulin sliding scale Diabetic diet Monitor sugars with meals and at night Qualifiers: Diabetes mellitus long-term insulin use: without longwall foreman use Diabetes mellitus complication status: without complication Qualified Code(s): E11.9 - Type 2 diabetes mellitus without complications (8) DVT prophylaxis Current Visit: No Status: Acute Assessment and plan: Subcutaneous heparin - Time Spent With Patient Total time spent is greater than 50% in coordination of care (as documented) at patient's floor/unit and/or counseling patient: Greater than 35 minutes
[2018-05-19 06:38] LABS: BUN/Creatinine Ratio 26 (6-26); Blood Urea Nitrogen 19 mg/dL (8-23); Calcium 9.1 mg/dL (8.6-10.3); Carbon Dioxide 28 mEq/L (23-29); Chloride 100 mEq/L (98-107); Glucose 93 mg/dL (70-105); Osmolality,Calculated 286 (280-300); Sodium 137 mEq/L (136-145); eGFR For Non-African Americans > 60 (> 60)
[2018-05-19] MEDS: Insulin LISPRO 300 UNITS/3 ML VIAL SQ SCH ×3 (07:40→16:25)
[2018-05-19] MEDS: cefTRIAXone 1,000 MG in Water for inj. (sterile) 20 ML 10 ML IVP SCH (07:56)
[2018-05-19] MEDS: Sucralfate 1 GM TABLET PO SCH ×3 (07:57→22:21)
[2018-05-19] MEDS: Niacin (24 HR) 500 MG TAB.ER.24H PO SCH (07:57)
[2018-05-19] MEDS: Acetaminophen 325 MG TABLET PO PRN ×2 (10:34→22:21)
--- NOTE | 2018-05-19 11:10 | Internal Med Progress Note ---
<Mc Contreras - Last Filed: 05/19/18 16:11> Hospitalist Progress Note - Encounter Date of Encounter: 05/19/18 - Exam Vitals: Temp Pulse Resp BP Pulse Ox 98.5 F 69 16 157/78 92 05/19/18 15:46 05/19/18 15:46 05/19/18 15:46 05/19/18 15:46 05/19/18 15:46 - Time Spent with Patient Total time spent is greater than 50% in coordination of care (as documented) at patient's floor/unit and/or counseling patient: Internal Medicine: Result - Labs CBC & Chem 7: 05/19/18 06:06 05/19/18 06:06 Labs: Short CBC 05/18/18 05/19/18 Range/Units 20:51 06:06 WBC 7.1 6.4 (4.3-11.1) K/mcL Hgb 14.8 13.3 D (11.5-15.4) g/dL Hct 43.8 39.0 (35.3-44.9) % Plt Count 292 263 (140-400) K/mcL Neutrophils # 6.4 (1.6-8.9) K/mcL BMP 05/18/18 05/19/18 20:51 06:06 Sodium 136 137 Potassium 3.1 L 3.0 L Chloride 99 100 Carbon Dioxide 25 28 BUN 19 19 Creatinine 0.75 0.74 Glucose 154 H 93 Calcium 9.3 9.1 Cardiac Enzymes 05/18/18 Range/Units 20:51 Troponin I < 0.03 (< 0.04) ng/mL Liver Function 05/18/18 Range/Units 20:51 Total Bilirubin 0.6 (0.3-1.0) mg/dL AST 19 (13-39) Units/L ALT 24 (7-52) Units/L Alkaline Phosphatase 73 (34-104) Units/L Albumin 3.9 (3.5-5.7) g/dL Urine 05/18/18 Range/Units 21:02 Urine Color Dark Yellow (Yellow) Urine Clarity Cloudy A (Clear) Urine pH 5.5 (5.0-8.0) pH Units Ur Specific [place] 1.024 (1.010-1.025) Urine Protein 100 H (Neg-Trace) mg/dL Urine Glucose (UA) Normal (Normal) mg/dL - ABG Interpretation ABG results: PT/INR, D-dimer PT 11.8 Seconds (9.4-12.1) 05/18/18 20:51 - Impressions Impressions Abdomen/Pelvis CT 05/18/18 20:41 IMPRESSION: Diverticulosis without scan evidence for diverticulitis or other acute process. D/ / Christ Robert MD / Christ Robert MD Interpreting Provider: Christ Robert MD Chest X-Ray 05/18/18 21:35 IMPRESSION: No focal consolidation. D/ / Kwesi Winston / Kwesi Winston Interpreting Provider: Kwesi Winston Consult Discharge Plan - Plan Referrals: Juan Kendrick MD [Partnered Physician] - - Attending Attestation I examined this patient and my medical decision-making was reviewed with the Resident Physician Dr. Conley. I agree with the documented findings, disposition and treatment plan as described except to the extent set forth b hilary. Ms. Lloyd is a 73 y/o F with known PMH of HTN,Depression and GERD pt admitted here for intractable nausea and vomiting. She does have abnormal UA. Pt was placed on IV hydration and empirical abx Rocephin. Pt states she is still having nausea. Gen: A, A, O x 3 Chest: Diminished BS b/l Heart: S1S2+ RRR Abd: Soft, mild tenderness in epigastric region a/p 1. Acute intractable nausea and vomiting 2. Acute gastroparesis with unclear etiology 3. GERD on PPI + Carafate continue symptomatic and supportive care IV Zofran and Phenergan as needed GI consulted for possible EGD in AM 4. Prolonged QT interval on EKG could be due to medication side effect with Reglan discontinued Reglan reviewed her EKG this morning which showed improved QT interval prolongation <Maria Guadalupe Conley P - Last Filed: 05/19/18 16:35> Hospitalist Progress Note - Encounter Date of Encounter: 05/19/18 Time of Encounter: 10:00 - Subjective Interval History: This 73 years old female admitted to inpatient from emergency yesterday for history of nausea and vomiting for last 2 days. She admits nausea and vomiting on and off before and she takes antiemetic medication(reglan) at home. She was admitted here in [place] for acute pancreatitis and dehydration 2 weeks back. She has one episode of high temperature: 100.9 and potassium level was 3.1. The urinalysis done in ED was suggestive of urinary tract infection. Urine culture has been sent and waiting for culture. During my visit today, she is lying comfortably in the bed, well oriented to time place and person, answering question appropriately, she does not have vomiting today, has nausea that is better than before. She denies pain abdomen, abdominal distention today. She had a bowel movement yesterday and normal urine today. She is on IV ceftriaxone and Zofran for nausea and vomiting. Temperature 98.3, pulse 67, saturation 93%, Her recent labs: Sodium 137, potassium 3.0, WBC 6.4, BUN 19, creatinine 0.74, urinalysis - Exam Vitals: Temp Pulse Resp BP Pulse Ox 98.3 F 67 16 116/73 93 05/19/18 07:17 05/19/18 07:17 05/19/18 07:17 05/19/18 07:17 05/19/18 07:17 Exam: - Head Head exam: Present: normal inspection - Eye Eye exam: Present: EOMI, normal appearance - Respiratory Respiratory exam: Present: rales. Absent: chest wall tenderness, CTAB, respiratory distress, rhonchi, wheezes Additional comments: Crackles right worse than left - Cardiovascular Cardiovascular exam: Present: RRR. Absent: diastolic murmur, systolic murmur - GI/Abdominal GI/Abdominal exam: Present: normal bowel sounds, soft. Absent: tenderness - Extremities Exam Extremities exam: Present: warm, radial pulses palpable and symmetrical. Absent: calf tenderness, minimal pedal edema, no tenderness - Neurological Exam Neurological exam: Present: no focal deficits, strengths equal and symetr throughout. Absent: motor sensory deficit, facial droop, speech deficit - Skin - Assessment and Plan (1) Nausea and vomiting Current Visit: Yes Status: Acute Assessment and Plan: The patient has history of nausea and vomiting before, but this time she has frequent vomiting and nausea We have consulted administrative receptionist for expert opinion regarding on and off nausea and vomiting. Gastro team is planning for a scope tomorrow and she will be on nothing by mouth from midnight. She does not have any vomiting today, but admits mild nausea. She is getting a little bit better with phenargan (2) UTI (urinary tract infection) Current Visit: Yes Status: Acute Assessment and Plan: The patient has history of urinary tract infection in last November. This report showed Escherichia coli growth in culture and sensitivity to cefazolin ceftriaxone Urinalysis done in ED showed urinary tract infection culture has been awaited. (3) Hypokalemia Current Visit: Yes Status: Acute Assessment and Plan: Her potassium level in hospital is 3.1 We have added potassium supplement orally: 40 MG once We will monitor serum potassium level tomorrow.. (4) Gastroparesis Current Visit: Yes Status: Acute Assessment and Plan: The patient has nausea and vomiting on and off She was admitted for intractable nausea and vomiting this time We have consulted gastro-enterologist as her nausea vomiting has not been fully improved with antiemetics Gastrology team has planned for scope tomorrow, we have put her on nothing by mouth since midnight. (5) QT prolongation Current Visit: Yes Status: Acute Assessment and Plan: The patient has prolonged QT during admission /QT interval documented 556 Her recent EKG showed improved QT interval : 46 The Q-T prolongation might be because of antibiotic she is taking reglan We are monitoring her EKG for Q-T prolongation. - Time Spent with Patient Total time spent is greater than 50% in coordination of care (as documented) at patient's floor/unit and/or counseling patient: Internal Medicine: Result - Labs CBC & Chem 7: 05/19/18 06:06 05/19/18 06:06 Labs: Short CBC 05/18/18 05/19/18 Range/Units 20:51 06:06 WBC 7.1 6.4 (4.3-11.1) K/mcL Hgb 14.8 13.3 D (11.5-15.4) g/dL Hct 43.8 39.0 (35.3-44.9) % Plt Count 292 263 (140-400) K/mcL Neutrophils # 6.4 (1.6-8.9) K/mcL BMP 05/18/18 05/19/18 20:51 06:06 Sodium 136 137 Potassium 3.1 L 3.0 L Chloride 99 100 Carbon Dioxide 25 28 BUN 19 19 Creatinine 0.75 0.74 Glucose 154 H 93 Calcium 9.3 9.1 Cardiac Enzymes 05/18/18 Range/Units 20:51 Troponin I < 0.03 (< 0.04) ng/mL Liver Function 05/18/18 Range/Units 20:51 Total Bilirubin 0.6 (0.3-1.0) mg/dL AST 19 (13-39) Units/L ALT 24 (7-52) Units/L Alkaline Phosphatase 73 (34-104) Units/L Albumin 3.9 (3.5-5.7) g/dL Urine 05/18/18 Range/Units 21:02 Urine Color Dark Yellow (Yellow) Urine Clarity Cloudy A (Clear) Urine pH 5.5 (5.0-8.0) pH Units Ur Specific [place] 1.024 (1.010-1.025) Urine Protein 100 H (Neg-Trace) mg/dL Urine Glucose (UA) Normal (Normal) mg/dL - ABG Interpretation ABG results: PT/INR, D-dimer PT 11.8 Seconds (9.4-12.1) 05/18/18 20:51 - Impressions Impressions Abdomen/Pelvis CT 05/18/18 20:41 IMPRESSION: Diverticulosis without scan evidence for diverticulitis or other acute process. D/ / Christ Robert MD / Christ Robert MD Interpreting Provider: Christ Robert MD Chest X-Ray 05/18/18 21:35
[2018-05-19] MEDS: *HR* Promethazine 25 MG/ML VIAL IVP PRN ×2 (11:25→17:11)
[2018-05-19] MEDS ORDERED: Potassium Citrate 10 MEQ TABLET.ER PO ONE (15:00)
[2018-05-19] MEDS: Ondansetron 4 MG/2 ML VIAL IVP PRN ×2 (15:08→21:16)
--- NOTE | 2018-05-19 15:33 | Electrocardiograph Report ---
[address] [address] Test Date: 2018-05-18 Pat Name: Page Lloyd Department: [id number] Room: 3B23 Gender: F Template Maker: : 1945 Requested By: Myles Pfeifefr Order Number: [id number] Reading MD: Giuliano Soto Measurements Intervals [place] Rate: 62 P: 47 DC: 186 QRS: 56 QRSD: 104 T: 59 QT: 558 QTc: 567 Interpretive Statements Sinus rhythm Prolonged QT interval Electronically Signed On 05-19-2018 15:31:41 EST by Giuliano Soto
[2018-05-19] MEDS: Pantoprazole 40 MG VIAL IVP SCH (17:13)
[2018-05-19] MEDS ORDERED: Insulin LISPRO 300 UNITS/3 ML VIAL SQ SCH (21:00)
[2018-05-19] MEDS ORDERED: Aspirin Enteric Coated 81 MG Tablet PO SCH (21:00)
[2018-05-20] MEDS: *HR* Heparin 5,000 UNIT/ML VIAL SQ SCH (05:38)
[2018-05-20] MEDS: Pantoprazole 40 MG VIAL IVP SCH (05:39)
[2018-05-20 08:02] LABS: Basophils % 0.4 %; Eosinophils % 0.2 %; Hemoglobin 13.7 g/dL (11.5-15.4); Immature Granulocytes % 0.2 % (0-4); Lymphocytes # 2.1 K/mcL (0.6-4.6); Mean Corpuscular HGB Conc 34.3 g/dL (31.6-35.5); Mean Corpuscular Hemoglobin 29.7 pg (28.0-33.3); Mean Corpuscular Volume 86.6 fL (83.0-100.0); Mean Platelet Volume 9.1 fL (9.4-12.4); Monocytes # 0.6 K/mcL (0.0-1.3); Monocytes % 11.8 %; Neutrophils # 2.3 K/mcL (1.6-8.9); Platelet Count 247 K/mcL (140-400); Red Blood Count 4.62 M/mcL (3.82-4.97); Red Cell Distribution Width 12.9 % (11.5-14.5); Segmented Neutrophils % 45.4 %
[2018-05-20] MEDS: Insulin LISPRO 300 UNITS/3 ML VIAL SQ SCH ×2 (08:05→11:49)
[2018-05-20 08:21] LABS: BUN/Creatinine Ratio 21 (6-26); Blood Urea Nitrogen 15 mg/dL (8-23); Calcium 8.8 mg/dL (8.6-10.3); Carbon Dioxide 24 mEq/L (23-29); Chloride 103 mEq/L (98-107); Glucose 92 mg/dL (70-105); Osmolality,Calculated 284 (280-300); Potassium 3.2 mEq/L (3.5-5.1); Sodium 137 mEq/L (136-145); eGFR For Non-African Americans > 60 (> 60)
[2018-05-20] MEDS: Sucralfate 1 GM TABLET PO SCH (08:30)
[2018-05-20] MEDS: Niacin (24 HR) 500 MG TAB.ER.24H PO SCH (08:30)
[2018-05-20] MEDS: cefTRIAXone 1,000 MG in Water for inj. (sterile) 20 ML 10 ML IVP SCH (08:36)
[2018-05-20 09:31] LABS: Estimated Average Glucose 126 mg/dl
--- NOTE | 2018-05-20 11:01 | Gastroenterology Consult Note ---
Date of Encounter: 05/20/18 Time of Encounter: 09:45 - Assessment and plan (1) Gastroparesis due to DM Current Visit: No Status: Acute Assessment and plan: Patient with gastroparesis due to DM. Patient has not been following gastroparesis diet. Encouraged strict diet control. 1. Small frequent meals. 2. Avoid fried and fatty foods. 3. Chew food well. 4. Blenderize food when symptomatic. 5. Reduce or avoid high-fiber foods and medications. 6. Avoid raw vegetables. 7. If you have diabetes, keep blood sugars well controlled. 8. Avoid medications that can delay gastric emptying such as narcotics, high- fiber medications, and high-fiber foods. No indication for EGD at this time. (2) Nausea and vomiting Current Visit: Yes Status: Acute Assessment and plan: Secondary to gastroparesis. See above. Qualifiers: Vomiting type: unspecified Qualified Code(s): R11.2 - Nausea with vomiting, unspecified (3) Prolonged Q-T interval on ECG Current Visit: Yes Status: Acute Assessment and plan: Could be due to Reglan. Continue to hold Reglan. - Time Spent With Patient Total time spent is greater than 50% in coordination of care (as documented) at patient's floor/unit and/or counseling patient: GI History of Present Illness - Data of Consult Patient: known to practice within the last 3 years Consult date: 05/20/18 Requesting Physician: Mc Contreras MD - Consult Narrative Reason for consult: Nausea, vomiting, gastroparesis History of present illness: Ms. Lloyd is a 73 year old female with PMHx of arthritis, CVA, DM, gastroparesis, HLD, HTN, TIA who presented to the ED with 2 day history of nausea and vomiting. She has been using Reglan BID with meals and Zofran, which were not controlling her symptoms. She was admitted to the hospital from 05/07 to 05/13 and diagnosed with acute pancreatitis, nausea, vomiting, and dehydration. In the ED CBC was within normal limits, BMP showed a potassium of 3.1. EKG showed prolonged QTC of 564. CT A/P showed diverticulosis without diverticulitis. Patient admits to eating "a lot of" macaroni and cheese, mashed potatoes and gravy, cornelius steak, broccoli, cauliflower. Procedures: EGD 02/25/2015 with medium-sized hiatus hernia and gastritis. NSAIDs: ASA Anticoagulation: None Past Med Surg Social Fam HX - Past Medical History Medical history: arthritis, CVA, diabetes, hyperlipidemia, hypertension, TIA Additional medical history: 3 TIA's, diverticulitis Psychiatric history: anxiety, depression - Past Surgical History Surgical History: cholecystectomy - Social History Smoking Status: Never smoker Smokeless Tobacco Status: No Alcohol use: none Drug use: none - Family History Mother Living Status: Hx Family Cardiac Disorders: Yes Hx Family Respiratory Disorders: No Hx Family Cancer: No Hx Family GI Disorders: No Hx Family Endocrine Disorder: Yes Hx Family Neuromuscular Disorders: No Hx Family Neurologic Disorders: No Hx Family HEENT Disorders: No Hx Family Autoimmune Disorders: No - Gastrointestinal Gastrointestinal: Present: as per HPI - Constitutional Constitutional: as per HPI - EENT Eyes: as per HPI Ears: Present: as per HPI Nose, mouth and throat: Present: as per HPI - Cardiovascular Cardiovascular ROS: Present: as per HPI - Respiratory Respiratory IM: Present: as per HPI - Genitourinary Genitourinary: Absent: change in color, Urinary frequency - Neurological ROS Neurological GI: Present: as per HPI - Hematologic/Lymphatic Hematologic/Lymphatic pediatric: Present: as per HPI - Musculoskeletal Musculoskeletal ROS GI: Present: as per HPI - Integumentary Integumentary GI: Present: as per HPI - Psychiatric ROS Psychiatric GI: Present: as per HPI - Endocrine Endocrine IM: Present: as per HPI - Constitutional Vitals: Temp Pulse Resp BP Pulse Ox 98.7 F 56 16 127/73 92 05/20/18 07:40 05/20/18 07:40 05/20/18 07:40 05/20/18 07:40 05/20/18 07:40 General appearance: Present: cooperative, A&O X 3, no acute distress, answers questions appropriately - Head Head exam: Present: atraumatic, normocephalic - Eye Eye exam: Present: normal appearance, sclera anicteric - ENT ENT exam: Present: mucous membranes moist - Neck Neck exam general surgery: Present: normal inspection, trachea midline - Respiratory Respiratory exam: Present: CTAB. Absent: rales, rhonchi - Cardiovascular Cardiovascular exam: Present: RRR, +S1, +S2 - GI/Abdominal GI/Abdominal exam: Present: soft, no peritoneal signs. Absent: distended, firm, guarding, tenderness - Rectal Rectal exam: Present: deferred - Extremities Exam Extremities exam: Present: warm - Neurological Exam Neurological exam: Present: no focal deficits - Psychiatric Psychiatric exam: Present: normal affect, normal mood - Skin Skin exam: Present: dry, intact, normal color, warm Results - Labs CBC & Chem 7: 05/20/18 07:32 05/20/18 07:32 Labs: Last Result Calcium 8.8 mg/dL (8.6-10.3) 05/20/18 07:32 Troponin I < 0.03 ng/mL (< 0.04) 05/18/18 20:51 Entire Visit Hgb 13.7 g/dL (11.5-15.4) 05/20/18 07:32 Hct 40.0 % (35.3-44.9) 05/20/18 07:32 PT 11.8 Seconds (9.4-12.1) 05/18/18 20:51 Total Bilirubin 0.6 mg/dL (0.3-1.0) 05/18/18 20:51 AST 19 Units/L (13-39) 05/18/18 20:51 ALT 24 Units/L (7-52) 05/18/18 20:51 Lipase 57 Units/L (11-82) 05/18/18 20:51 - ABG ABG results: PT/INR, D-dimer PT 11.8 Seconds (9.4-12.1) 05/18/18 20:51 Consult Discharge Plan - Plan Referrals: Juan Kendrick MD [Partnered Physician] -
--- NOTE | 2018-05-20 11:30 | Discharge Summary ---
- NOTES TO OUTPATIENT PROVIDER Notes to Outpatient Provider: Follow-up with PCP in one week. Follow-up with GI Dr. Dooley in 2 weeks. Please stop taking Reglan. Orders not resulted at time of discharge: Pending orders 05/18/18 21:02 Culture,Urine [RM] Stat Date of Encounter: 05/20/18 Time of Encounter: 11:28 - Discharge Diagnosis (1) Gastroparesis Priority: Primary Status: Acute (2) Intractable nausea and vomiting Priority: Primary Status: Acute Qualifiers: Vomiting type: unspecified Qualified Code(s): R11.2 - Nausea with vomiting, unspecified (3) Hypokalemia Priority: Secondary Status: Acute (4) UTI (urinary tract infection) Priority: Secondary Status: Acute Qualifiers: Urinary tract infection type: acute cystitis Qualified Code(s): N30.00 - Acute cystitis without hematuria (5) QT prolongation Priority: Secondary Status: Acute (6) Diabetes Priority: Secondary Status: Chronic Qualifiers: Diabetes mellitus type: type 2 Diabetes mellitus detention insulin use: without detention use Diabetes mellitus complication status: with unspecified complications Qualified Code(s): E11.8 - Type 2 diabetes mellitus with unspecified complications (7) Essential hypertension Priority: Secondary Status: Chronic Hospital course: Ms. Lloyd is a 73 y/o F with known PMH of HTN,Depression, borderline diabetes and GERD pt admitted here for intractable nausea and vomiting. She does have abnormal UA. Pt was placed on IV hydration and empirical abx Rocephin. Patient stated she lives by herself and eats frozen food as well as canned food most of the time. She does have borderline DM with her HbA1C 6.0. She does not need any medical management for her DM2, recommend diet modification. Corn Picker consulted for further education. Pt was evaluated by GI for her gastroparesis, who recommend diet modifications for now and f/u with them as an out pt. She does have mild prolonged QT upon admission mostly due to her chronic Reglan intake. So stopped her Reglan and her QT prolongation improved. Will d/c her home in stable condition today. - Time Spent with Patient Total time spent providing and/or coordinating discharge services: - Discharge Medications Prescriptions: Promethazine [Phenergan] 12.5 mg PO Q8HR PRN #20 tablet PRN Reason: Nausea Cephalexin [Keflex] 500 mg PO TID #15 capsule Home Medications: Aspirin Enteric Coated [Aspirin EC] 81 mg PO HS 02/24/15 [History] Metoprolol [Lopressor] 25 mg PO BID 02/24/15 [History] Niacin 500 mg PO DAILY 02/24/15 [History] Pantoprazole Sodium [Protonix] 40 mg PO DAILY 02/24/15 [History] Pravastatin Sodium [Pravachol] 40 mg PO DAILY 05/10/16 [History] hydrOXYzine HCl [Hydroxyzine HCl] 25 mg PO TID 05/10/16 [History] Metoclopramide [Reglan] 5 ml PO BIDWM 11/05/17 [History] Acetaminophen [Tylenol] 1,000 mg PO Q6HR PRN 05/07/18 [History] Cholecalciferol (D-3) [Vitamin D] 1,000 unit PO DAILY 05/07/18 [History] Escitalopram [Lexapro] 10 mg PO DAILY 05/07/18 [History] Melatonin 5 mg PO HS 05/07/18 [History] Sucralfate [Carafate] 1 gm PO TID 05/07/18 [History] Ondansetron ODT [Zofran ODT] 4 mg SL Q6HR PRN #12 tab.rapdis 05/16/18 [Rx] Cranberry Fruit Extract [Cranberry] 500 mg PO DAILY 05/19/18 [History] Cephalexin [Keflex] 500 mg PO TID #15 capsule 05/20/18 [Rx] Promethazine [Phenergan] 12.5 mg PO Q8HR PRN #20 tablet 05/20/18 [Rx] Allergies/Adverse Reactions: Allergy/AdvReac Type Severity Reaction Status Date / Time Penicillins [PCN] Allergy Severe See Verified 05/19/18 12:50 Comments Sulfa (Sulfonamide Allergy Severe See Verified 05/19/18 12:50 Antibiotics) Comments lorazepam [From Ativan] AdvReac Severe Hallucinati Verified 05/19/18 12:50 ng Date of admission: 05/18/18 23:15 Primary care physician: PCP NONE Consults: 05/19/18 00:53 Consult to Nursery Manager [CONS] Routine Reason for SW Consult: pt has [facility] home health nursing services and meals brought to home 05/19/18 10:58 Consult to Gastroenterology [CONS] Routine Consulting Provider: Gastroenterology Britany Reason for Consult: frequent Nausea and vomiting Time Notified: 10:59 Call Completed: No 05/20/18 11:20 Consult to Nutrition [CONS] Routine Consulting Provider: NUTRITION Comment: Reason for Dietary Consult: Diet Education - Constitutional Vitals: Temp Pulse Resp BP Pulse Ox 98.7 F 56 16 127/73 92 05/20/18 07:40 05/20/18 07:40 05/20/18 07:40 05/20/18 07:40 05/20/18 07:40 General appearance: Present: cooperative, A&O X 3, pleasant, no acute distress, answers questions appropriately Exam: Gen: Alert, awake, Oriented to time,place and person Chest: Diminished breath sounds B/L, No wheezing, No crackles, No rales Heart: S1S2+ RRR No murmurs Abd: Soft, NT, BS +, No organomegaly Ext: No edema, pulses are palpable, No calf tenderness Neuro : Benign findings Skin: No rash. - Patient Status Disposition: Home, Self-Care Condition: Good Overall status at discharge: patient is back to baseline - Discharge Instructions Instructions: Gastroparesis (DC), Gastroparesis, Training Instructor (GEN), Diabetic gastroparesis (DC) Follow Up With: Juan Kendrick MD [Partnered Physician] - Tari Dooley MD [Partnered Physician] - - Diet and Activity Activity: increase activity as tolerated Diet: diabetic diet
[2018-05-20 11:34] VITALS: BP 118/69
--- NOTE | 2018-05-20 17:22 | Electrocardiograph Report ---
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
== END 2018-05-20 15:25 | disposition home or self-care (01) ==
LOC: EMEROOARM 20:39 → 3BNU 20:39 → SUATTDRO 23:15 → 3BNU 05-19 00:19
PROVIDERS: ADMIT Family Medicine; ATTEND Family Medicine

== ENCOUNTER 2020-01-28 16:25 | Inpatient (IN) ==
[2020-01-28 17:25] LABS: Eosinophils # 0.2 K/mcL (0.0-0.6); Eosinophils % 6.2 %; Hematocrit 45.8 % (35.3-44.9); Hemoglobin 14.7 g/dL (11.5-15.4); Immature Granulocytes % 0.3 % (0-4); Lymphocytes # 1.5 K/mcL (0.6-4.6); Lymphocytes % 37.4 %; Mean Corpuscular HGB Conc 32.1 g/dL (31.6-35.5); Mean Corpuscular Volume 87.2 fL (83.0-100.0); Mean Platelet Volume 9.7 fL (9.4-12.4); Monocytes # 0.5 K/mcL (0.0-1.3); Monocytes % 11.8 %; Neutrophils # 1.7 K/mcL (1.6-8.9); Platelet Count 268 K/mcL (140-400); Red Blood Count 5.25 M/mcL (3.82-4.97); Red Cell Distribution Width 12.7 % (11.5-14.5); Segmented Neutrophils % 43.3 %; White Blood Count 3.9 K/mcL (4.3-11.1)
[2020-01-28 17:42] LABS: BUN/Creatinine Ratio 15 (6-26); Blood Urea Nitrogen 12 mg/dL (8-23); Calcium 9.5 mg/dL (8.6-10.3); Carbon Dioxide 26 mEq/L (23-29); Chloride 98 mEq/L (98-107); Glucose 114 mg/dL (70-105); Osmolality,Calculated 279 (280-300); Potassium 3.9 mEq/L (3.5-5.1); Sodium 134 mEq/L (136-145); Troponin I < 0.03 ng/mL (< 0.04); eGFR For African Americans > 60 (> 60); eGFR For Non-African Americans > 60 (> 60)
[2020-01-28 18:27] LABS: Bilirubin,Urine Negative (Negative); Blood,Urine Negative (Negative); Clarity,Urine Clear (Clear); Color,Urine Colorless (Yellow); Glucose,Urine (UA) Normal (Normal); Ketones,Urine Negative (Negative); Leukocyte Esterase,Urine Negative (Negative); Nitrite,Urine Negative (Negative); PH,Urine 6.5 pH Units (5.0-8.0); Protein,Urine Negative (Neg-Trace); Urobilinogen,Urine Normal (Normal)
[2020-01-28] MEDS ORDERED: Naloxone 0.4 MG/ML INJ IVP PRN (20:20)
[2020-01-28] MEDS: Aspirin Enteric Coated 81 MG Tablet PO SCH (22:52)
[2020-01-28] MEDS: Melatonin 3 MG TABLET PO SCH (22:52)
[2020-01-28] MEDS: Sucralfate 1 GM TABLET PO SCH (22:55)
[2020-01-29 05:21] LABS: Hemoglobin 14.5 g/dL (11.5-15.4); Mean Corpuscular Hemoglobin 28.8 pg (28.0-33.3); Mean Corpuscular Volume 87.5 fL (83.0-100.0); Mean Platelet Volume 10.2 fL (9.4-12.4); Platelet Count 181 K/mcL (140-400); Red Blood Count 5.03 M/mcL (3.82-4.97); White Blood Count 3.6 K/mcL (4.3-11.1)
[2020-01-29 06:04] LABS: BUN/Creatinine Ratio 15 (6-26); Blood Urea Nitrogen 11 mg/dL (8-23); Calcium 9.4 mg/dL (8.6-10.3); Carbon Dioxide 22 mEq/L (23-29); Chloride 101 mEq/L (98-107); Glucose 117 mg/dL (70-105); Osmolality,Calculated 280 (280-300); Potassium 3.6 mEq/L (3.5-5.1); Sodium 135 mEq/L (136-145); eGFR For African Americans > 60 (> 60); eGFR For Non-African Americans > 60 (> 60)
[2020-01-29] MEDS: Sucralfate 1 GM TABLET PO SCH ×2 (08:27→16:50)
[2020-01-29] MEDS: Cholecalciferol (D-3) 1,000 UNIT (25MCG) TABLET PO SCH (08:27)
[2020-01-29] MEDS ORDERED: NON-FORMULARY MEDICATION 1 EACH EACH (Cranberry Fruit Extract [Cranberry] 500 MG) PO SCH (09:00)
[2020-01-29] MEDS ORDERED: hydrOXYzine pamoate 25 MG CAPSULE PO PRN (10:05)
[2020-01-29] MEDS ORDERED: Dextrose Gel 15 GM/37.5 ML TUBE PO PRN ×2 (10:07)
[2020-01-29] MEDS ORDERED: *HR* Dextrose 50 % in Water (Vial) 50 ML VIAL IVP PRN (10:07)
[2020-01-29] MEDS ORDERED: D5% in Water 1,000 ML IVC PRN (10:07)
[2020-01-29] MEDS: Niacin (24 HR) 500 MG TAB.ER.24H PO SCH (11:47)
[2020-01-29] MEDS: Insulin LISPRO 300 UNITS/3 ML VIAL SQ SCH ×3 (11:47→21:06)
[2020-01-29 15:11] LABS: Estimated Average Glucose 163 mg/dl
[2020-01-29] MEDS: Metoclopramide 10 MG/10 ML UD.LIQ PO SCH (16:50)
[2020-01-29] MEDS: *HR* Heparin 5,000 UNIT/ML VIAL SQ SCH (16:50)
[2020-01-29] MEDS: Melatonin 3 MG TABLET PO SCH (21:05)
[2020-01-29] MEDS: Aspirin Enteric Coated 81 MG Tablet PO SCH (21:05)
[2020-01-30] MEDS: *HR* HYDROcodone/Acet 5/325 mg TABLET PO PRN ×3 (03:41→22:58)
[2020-01-30] MEDS: *HR* Heparin 5,000 UNIT/ML VIAL SQ SCH ×2 (06:26→19:05)
[2020-01-30] MEDS: Sucralfate 1 GM TABLET PO SCH ×3 (06:26→15:58)
[2020-01-30] MEDS: Cholecalciferol (D-3) 1,000 UNIT (25MCG) TABLET PO SCH (08:04)
[2020-01-30] MEDS: Niacin (24 HR) 500 MG TAB.ER.24H PO SCH (08:04)
[2020-01-30] MEDS: Insulin LISPRO 300 UNITS/3 ML VIAL SQ SCH ×4 (08:05→21:01)
[2020-01-30] MEDS: Metoclopramide 10 MG/10 ML UD.LIQ PO SCH ×2 (08:05→15:59)
[2020-01-30 11:34] LABS: Basophils # 0.1 K/mcL (0.0-0.2); Basophils % 1.2 %; Eosinophils # 0.2 K/mcL (0.0-0.6); Eosinophils % 4.6 %; Hematocrit 45.2 % (35.3-44.9); Hemoglobin 14.9 g/dL (11.5-15.4); Immature Granulocytes % 0.2 % (0-4); Lymphocytes # 1.2 K/mcL (0.6-4.6); Lymphocytes % 28.6 %; Mean Corpuscular Volume 87.9 fL (83.0-100.0); Mean Platelet Volume 9.6 fL (9.4-12.4); Monocytes # 0.5 K/mcL (0.0-1.3); Monocytes % 11.1 %; Neutrophils # 2.3 K/mcL (1.6-8.9); Platelet Count 236 K/mcL (140-400); Red Blood Count 5.14 M/mcL (3.82-4.97); Red Cell Distribution Width 12.8 % (11.5-14.5); Segmented Neutrophils % 54.3 %; White Blood Count 4.2 K/mcL (4.3-11.1)
[2020-01-30 11:55] LABS: BUN/Creatinine Ratio 15 (6-26); Blood Urea Nitrogen 12 mg/dL (8-23); Calcium 9.3 mg/dL (8.6-10.3); Carbon Dioxide 24 mEq/L (23-29); Chloride 99 mEq/L (98-107); Glucose 211 mg/dL (70-105); Magnesium 1.6 mg/dL (1.6-2.6); Osmolality,Calculated 282 (280-300); Phosphorous 2.9 mg/dL (2.7-4.5); Potassium 3.6 mEq/L (3.5-5.1); Sodium 133 mEq/L (136-145); eGFR For African Americans > 60 (> 60); eGFR For Non-African Americans > 60 (> 60)
[2020-01-30] MEDS: Aspirin Enteric Coated 81 MG Tablet PO SCH (21:00)
[2020-01-30] MEDS: Melatonin 3 MG TABLET PO SCH (21:00)
[2020-01-31] MEDS: *HR* Heparin 5,000 UNIT/ML VIAL SQ SCH ×2 (05:57→16:31)
[2020-01-31] MEDS: *HR* HYDROcodone/Acet 5/325 mg TABLET PO PRN ×2 (07:20→16:30)
[2020-01-31] MEDS: Metoclopramide 10 MG/10 ML UD.LIQ PO SCH ×2 (07:20→16:30)
[2020-01-31] MEDS: Sucralfate 1 GM TABLET PO SCH ×3 (07:20→16:31)
[2020-01-31] MEDS: Niacin (24 HR) 500 MG TAB.ER.24H PO SCH (07:20)
[2020-01-31] MEDS: Cholecalciferol (D-3) 1,000 UNIT (25MCG) TABLET PO SCH (07:20)
[2020-01-31] MEDS: Insulin LISPRO 300 UNITS/3 ML VIAL SQ SCH ×4 (07:21→20:15)
[2020-01-31] MEDS: Melatonin 3 MG TABLET PO SCH (20:14)
[2020-01-31] MEDS: Aspirin Enteric Coated 81 MG Tablet PO SCH (20:15)
[2020-02-01] MEDS: *HR* HYDROcodone/Acet 5/325 mg TABLET PO PRN ×2 (00:37→08:47)
[2020-02-01] MEDS: *HR* Heparin 5,000 UNIT/ML VIAL SQ SCH (00:38)
[2020-02-01] MEDS ORDERED: Bacitracin 50,000 UNIT, Polymyxin B Sulfate 500,000 UNIT, Sodium Chloride IRRigation 1,... IR ONE (02:00)
[2020-02-01 06:02] LABS: Basophils # 0.1 K/mcL (0.0-0.2); Basophils % 1.1 %; Eosinophils # 0.3 K/mcL (0.0-0.6); Eosinophils % 6.4 %; Hematocrit 41.9 % (35.3-44.9); Hemoglobin 13.7 g/dL (11.5-15.4); Immature Granulocytes % 0.2 % (0-4); Lymphocytes # 1.5 K/mcL (0.6-4.6); Mean Corpuscular HGB Conc 32.7 g/dL (31.6-35.5); Mean Corpuscular Hemoglobin 28.7 pg (28.0-33.3); Mean Corpuscular Volume 87.7 fL (83.0-100.0); Mean Platelet Volume 9.7 fL (9.4-12.4); Monocytes # 0.6 K/mcL (0.0-1.3); Monocytes % 11.8 %; Neutrophils # 2.3 K/mcL (1.6-8.9); Platelet Count 220 K/mcL (140-400); Red Blood Count 4.78 M/mcL (3.82-4.97); Red Cell Distribution Width 12.6 % (11.5-14.5); Segmented Neutrophils % 48.5 %; White Blood Count 4.7 K/mcL (4.3-11.1)
[2020-02-01 06:08] LABS: INR 1.1
[2020-02-01 06:10] LABS: Activated Partial Thrombo Time 30.1 Seconds (26.0-36.0)
[2020-02-01 06:22] LABS: BUN/Creatinine Ratio 20 (6-26); Blood Urea Nitrogen 18 mg/dL (8-23); Calcium 9.2 mg/dL (8.6-10.3); Carbon Dioxide 26 mEq/L (23-29); Chloride 100 mEq/L (98-107); Glucose 130 mg/dL (70-105); Magnesium 1.6 mg/dL (1.6-2.6); Osmolality,Calculated 284 (280-300); Phosphorous 3.8 mg/dL (2.7-4.5); Potassium 3.7 mEq/L (3.5-5.1); Sodium 135 mEq/L (136-145); eGFR For African Americans > 60 (> 60); eGFR For Non-African Americans > 60 (> 60)
[2020-02-01] MEDS: Metoclopramide 10 MG/10 ML UD.LIQ PO SCH ×2 (08:47→17:25)
[2020-02-01] MEDS: Niacin (24 HR) 500 MG TAB.ER.24H PO SCH (08:48)
[2020-02-01] MEDS: Insulin LISPRO 300 UNITS/3 ML VIAL SQ SCH ×3 (08:48→17:25)
[2020-02-01] MEDS: Sucralfate 1 GM TABLET PO SCH ×4 (08:48→22:27)
[2020-02-01] MEDS: Cholecalciferol (D-3) 1,000 UNIT (25MCG) TABLET PO SCH (08:48)
[2020-02-01] MEDS ORDERED: *HR* Remifentanil 1 MG VIAL IVP ONE (09:47)
[2020-02-01] MEDS ORDERED: *HR* Succinylcholine 200 MG/10 ML VIAL IVP ONE (09:47)
[2020-02-01] MEDS ORDERED: Ondansetron 4 MG/2 ML VIAL ONE (09:47)
[2020-02-01] MEDS ORDERED: *HR* FentaNYL (PF) 100 MCG/2 ML VIAL ONE (09:48)
[2020-02-01] MEDS ORDERED: *HR* Propofol 200 MG/20 ML VIAL IVP ONE ×2 (09:48→12:38)
[2020-02-01] MEDS ORDERED: Dexamethasone 4 MG/ML VIAL ONE (09:48)
[2020-02-01] MEDS ORDERED: Lidocaine -MPF 2% 2 ML VIAL ONE (09:48)
[2020-02-01] MEDS ORDERED: *HR* Rocuronium Bromide 50 MG/5 ML VIAL ONE (09:51)
[2020-02-01] MEDS ORDERED: Lidocaine HCL 4 ML Topical Solution (Laryng-O-Jet Kit Sterile Pak) TP ONE (09:58)
[2020-02-01] MEDS ORDERED: Ondansetron 4 MG/2 ML VIAL IVP ONE ×2 (11:22→16:46)
[2020-02-01] MEDS ORDERED: *HR* HYDROmorphone PF 0.5 MG/0.5 ML SYRINGE IVP PRN (11:22)
[2020-02-01] MEDS ORDERED: *HR* Labetalol 20 MG/4 ML SYRINGE IVP PRN (11:22)
[2020-02-01] MEDS ORDERED: Acetaminophen IV 1,000 MG/100 ML INFUS..BTL ONE (11:57)
[2020-02-01] MEDS ORDERED: Famotidine 20 MG/2 ML VIAL ONE (11:57)
[2020-02-01] MEDS ORDERED: Clindamycin 900 MG/50 ML 900 MG/50 ML IV.SOLN IVPB ONE (12:22)
[2020-02-01] MEDS ORDERED: Acetaminophen 325 MG TABLET PO PRN (17:45)
[2020-02-01] MEDS ORDERED: Naloxone 0.4 MG/ML INJ IVP PRN (17:45)
[2020-02-01] MEDS ORDERED: *HR* HYDROcodone/Acet 5/325 mg TABLET PO PRN (17:45)
[2020-02-01] MEDS: Clindamycin 900 MG/50 ML 900 MG/50 ML IV.SOLN IVPB SCH (19:50)
[2020-02-01] MEDS: *HR* OxyCODONE Immed Rel 5 MG TABLET PO PRN (19:50)
[2020-02-01] MEDS ORDERED: hydrOXYzine pamoate 25 MG CAPSULE PO PRN (21:42)
[2020-02-01] MEDS: Ringers Solution, Lactated 1,000 ML IVC SCH (22:26)
[2020-02-01] MEDS: Aspirin Enteric Coated 81 MG Tablet PO SCH (22:27)
[2020-02-01] MEDS: Melatonin 3 MG TABLET PO SCH (22:27)
[2020-02-02] MEDS: *HR* OxyCODONE Immed Rel 5 MG TABLET PO PRN ×4 (00:29→20:15)
[2020-02-02] MEDS: Clindamycin 900 MG/50 ML 900 MG/50 ML IV.SOLN IVPB SCH (04:11)
[2020-02-02] MEDS: Cholecalciferol (D-3) 1,000 UNIT (25MCG) TABLET PO SCH (08:37)
[2020-02-02] MEDS: Sucralfate 1 GM TABLET PO SCH ×3 (08:37→16:59)
[2020-02-02] MEDS: Ringers Solution, Lactated 1,000 ML IVC SCH (08:42)
[2020-02-02] MEDS: Metoclopramide 10 MG/10 ML UD.LIQ PO SCH (17:00)
[2020-02-02] MEDS: Aspirin Enteric Coated 81 MG Tablet PO SCH (20:14)
[2020-02-02] MEDS: Melatonin 3 MG TABLET PO SCH (20:15)
[2020-02-03] MEDS: *HR* OxyCODONE Immed Rel 5 MG TABLET PO PRN ×5 (02:53→20:45)
[2020-02-03] MEDS ORDERED: *HR* Rivaroxaban 10 MG TABLET PO SCH (06:00)
[2020-02-03] MEDS: Sucralfate 1 GM TABLET PO SCH ×3 (07:22→16:28)
[2020-02-03] MEDS: Cholecalciferol (D-3) 1,000 UNIT (25MCG) TABLET PO SCH (07:23)
[2020-02-03] MEDS: Metoclopramide 10 MG/10 ML UD.LIQ PO SCH ×2 (07:24→16:28)
[2020-02-03] MEDS ORDERED: Dextrose Gel 15 GM/37.5 ML TUBE PO PRN ×2 (12:11)
[2020-02-03] MEDS ORDERED: D5% in Water 1,000 ML IVC PRN (12:11)
[2020-02-03] MEDS ORDERED: *HR* Dextrose 50 % in Water (Vial) 50 ML VIAL IVP PRN (12:11)
[2020-02-03] MEDS: Insulin LISPRO 300 UNITS/3 ML VIAL SQ SCH ×2 (12:47→17:45)
[2020-02-03] MEDS: Aspirin Enteric Coated 81 MG Tablet PO SCH (20:44)
[2020-02-03] MEDS: Melatonin 3 MG TABLET PO SCH (20:44)
[2020-02-03] MEDS ORDERED: Insulin LISPRO 300 UNITS/3 ML VIAL SQ SCH (21:00)
[2020-02-04] MEDS: *HR* OxyCODONE Immed Rel 5 MG TABLET PO PRN ×3 (02:13→11:53)
[2020-02-04 04:34] LABS: Basophils % 0.4 %; Eosinophils # 0.2 K/mcL (0.0-0.6); Eosinophils % 2.3 %; Hematocrit 39.5 % (35.3-44.9); Hemoglobin 12.7 g/dL (11.5-15.4); Immature Granulocytes % 0.3 % (0-4); Lymphocytes # 1.4 K/mcL (0.6-4.6); Lymphocytes % 19.4 %; Mean Corpuscular HGB Conc 32.2 g/dL (31.6-35.5); Mean Corpuscular Hemoglobin 27.9 pg (28.0-33.3); Mean Corpuscular Volume 86.6 fL (83.0-100.0); Mean Platelet Volume 9.6 fL (9.4-12.4); Monocytes # 1.4 K/mcL (0.0-1.3); Monocytes % 19.5 %; Neutrophils # 4.1 K/mcL (1.6-8.9); Platelet Count 201 K/mcL (140-400); Red Blood Count 4.56 M/mcL (3.82-4.97); Red Cell Distribution Width 13.1 % (11.5-14.5); Segmented Neutrophils % 58.1 %
[2020-02-04 04:39] LABS: White Blood Count 7.1 K/mcL (4.3-11.1)
[2020-02-04 04:52] LABS: BUN/Creatinine Ratio 18 (6-26); Blood Urea Nitrogen 12 mg/dL (8-23); Calcium 8.8 mg/dL (8.6-10.3); Carbon Dioxide 29 mEq/L (23-29); Chloride 97 mEq/L (98-107); Glucose 139 mg/dL (70-105); Magnesium 1.7 mg/dL (1.6-2.6); Osmolality,Calculated 276 (280-300); Potassium 3.9 mEq/L (3.5-5.1); Sodium 132 mEq/L (136-145); eGFR For African Americans > 60 (> 60); eGFR For Non-African Americans > 60 (> 60)
[2020-02-04 05:19] LABS: Platelet Estimate Normal (Normal)
[2020-02-04 05:20] LABS: Reactive Lymphocytes Present (Not Present)
[2020-02-04] MEDS: Cholecalciferol (D-3) 1,000 UNIT (25MCG) TABLET PO SCH (07:38)
[2020-02-04] MEDS: Sucralfate 1 GM TABLET PO SCH ×2 (07:39→11:53)
[2020-02-04] MEDS: Metoclopramide 10 MG/10 ML UD.LIQ PO SCH (07:39)
[2020-02-04] MEDS: Insulin LISPRO 300 UNITS/3 ML VIAL SQ SCH ×2 (07:49→11:50)
[2020-02-04 11:00] VITALS: BP 121/80
== END 2020-02-04 15:15 | DRG 472 ==
LOC: 3BNU 16:25 → EMEROOARM 16:25 → SUATTDRO 19:28 → 3BNU 19:51 → SUATTDRO 01-29 15:22 → 3NENU 01-29 18:22
PROVIDERS: ADMIT Internal Medicine; ATTEND Pharmacist

== ENCOUNTER 2020-04-20 13:41 | Observation (INO) ==
[2020-04-20] MEDS ORDERED: Ondansetron 4 MG/2 ML VIAL IVP ONE ×2 (14:40→17:32)
[2020-04-20 14:46] LABS: Basophils % 0.1 %; Hemoglobin 14.6 g/dL (11.5-15.4); Immature Granulocytes % 0.3 % (0-4); Lymphocytes # 0.7 K/mcL (0.6-4.6); Lymphocytes % 8.9 %; Mean Corpuscular HGB Conc 33.2 g/dL (31.6-35.5); Mean Corpuscular Volume 84.3 fL (83.0-100.0); Mean Platelet Volume 9.4 fL (9.4-12.4); Monocytes # 0.5 K/mcL (0.0-1.3); Monocytes % 6.6 %; Neutrophils # 6.2 K/mcL (1.6-8.9); Platelet Count 308 K/mcL (140-400); Red Blood Count 5.22 M/mcL (3.82-4.97); Segmented Neutrophils % 84.1 %; White Blood Count 7.4 K/mcL (4.3-11.1)
[2020-04-20 15:06] LABS: Alanine Aminotransferase 21 Units/L (7-52); Albumin 3.8 g/dL (3.5-5.7); Albumin/Globulin Ratio 1.1 (1.1-2.2); Alkaline Phosphatase 85 Units/L (34-104); Amylase 38 Units/L (29-103); Aspartate Amino Transferase 15 Units/L (13-39); BUN/Creatinine Ratio 18 (6-26); Bilirubin,Direct 0.1 mg/dL (0.0-0.2); Bilirubin,Indirect 0.3 mg/dL (0.0-1.0); Bilirubin,Total 0.4 mg/dL (0.3-1.0); Blood Urea Nitrogen 13 mg/dL (8-23); Calcium 9.6 mg/dL (8.6-10.3); Carbon Dioxide 22 mEq/L (23-29); Chloride 97 mEq/L (98-107); Globulin 3.5 g/dL (2.4-3.5); Glucose 147 mg/dL (70-105); Lipase 38 Units/L (11-82); Osmolality,Calculated 285 (280-300); Sodium 136 mEq/L (136-145); Total Protein 7.3 g/dL (6.4-8.9); eGFR For African Americans > 60 (> 60); eGFR For Non-African Americans > 60 (> 60)
[2020-04-20 15:26] LABS: VBG HCO3 25 mEq/L (21-27); VBG PCO2 39 mmHg (41-51); VBG PH 7.41 pH Units (7.32-7.42); VBG PO2 67 mmHg (25-50)
[2020-04-20 15:32] LABS: Bacteria,Urine Few per hpf (None-Few); Bilirubin,Urine Negative (Negative); Blood,Urine Negative (Negative); Clarity,Urine Clear (Clear); Color,Urine Light-Yellow (Yellow); Glucose,Urine (UA) Normal (Normal); Hyaline Casts,Urine Few per lpf (None Seen); Ketones,Urine >150 mg/dL (Negative); Leukocyte Esterase,Urine Negative (Negative); Mucus,Urine Few per lpf (None-Few); Nitrite,Urine Negative (Negative); Protein,Urine 100 mg/dL (Neg-Trace); RBC,Urine 0-3 per hpf (0-3); Specific Gravity,Urine 1.016 (1.010-1.025); Squamous Epithelial Cell,Urine Few per hpf (None-Few); Urobilinogen,Urine Normal (Normal)
[2020-04-20 15:44] LABS: Troponin I < 0.03 ng/mL (< 0.04)
[2020-04-20] MEDS ORDERED: *HR* Metoprolol 5 MG/5 ML VIAL IVP ONE (17:31)
[2020-04-20] MEDS ORDERED: 0.9 % Sodium Chloride 1,000 ML IVC ONE (17:32)
[2020-04-20] MEDS ORDERED: Potassium Chloride 40 MEQ, Lidocaine 1% 2 ML in 0.9 % Sodium Chloride 500 ML IVPB ONE (18:06)
[2020-04-20] MEDS ORDERED: Perflutren Lipid Microsphere 1.3 ML in 0.9 % Sodium Chloride 8.7 ML IVP PRN (18:07)
[2020-04-20] MEDS ORDERED: *HR* Heparin 5,000 UNIT/ML VIAL IVP ONE (18:14)
[2020-04-20] MEDS ORDERED: *HR* Heparin 5,000 UNIT/ML VIAL IVP PRN ×2 (18:14)
[2020-04-20] MEDS ORDERED: Dextrose Gel 15 GM/37.5 ML TUBE PO PRN ×2 (18:19)
[2020-04-20] MEDS ORDERED: Naloxone 0.4 MG/ML INJ IVP PRN (18:19)
[2020-04-20] MEDS ORDERED: D5% in Water 1,000 ML IVC PRN (18:19)
[2020-04-20] MEDS ORDERED: *HR* Dextrose 50 % in Water (Vial) 50 ML VIAL IVP PRN (18:19)
[2020-04-20 18:27] LABS: Magnesium 1.8 mg/dL (1.6-2.6); Phosphorous 2.8 mg/dL (2.7-4.5)
[2020-04-20 18:41] LABS: Thyroid Stimulating Hormone 0.701 mcIU/mL (0.340-5.600)
[2020-04-20 18:59] LABS: Hematocrit 43.6 % (35.3-44.9); Hemoglobin 14.5 g/dL (11.5-15.4); Mean Corpuscular HGB Conc 33.3 g/dL (31.6-35.5); Mean Corpuscular Hemoglobin 28.1 pg (28.0-33.3); Mean Corpuscular Volume 84.5 fL (83.0-100.0); Platelet Count 313 K/mcL (140-400); Red Blood Count 5.16 M/mcL (3.82-4.97); Red Cell Distribution Width 13.9 % (11.5-14.5); White Blood Count 6.9 K/mcL (4.3-11.1)
[2020-04-20 19:09] LABS: INR 1.4; Prothrombin Time 15.5 Seconds (9.4-12.1)
[2020-04-20 19:10] LABS: Heparin anti-factor XA UFH < 0.04 IU/mL (0.30-0.70)
[2020-04-20] MEDS: 0.9 % Sodium Chloride 1,000 ML IVC SCH (19:41)
[2020-04-20] MEDS: Heparin 25,000UNIT/250ML 1/2NS 25,000 UNIT/250 ML IV.SOLN IVC SCH (20:06)
[2020-04-20] MEDS: Insulin LISPRO 300 UNITS/3 ML VIAL SQ SCH ×2 (20:11)
[2020-04-20] MEDS: Aspirin Enteric Coated 81 MG Tablet PO SCH (20:38)
[2020-04-20] MEDS: Melatonin 3 MG TABLET PO SCH (20:38)
[2020-04-20] MEDS: Ondansetron 4 MG/2 ML VIAL IVP PRN (23:38)
[2020-04-21 02:39] LABS: Basophils % 0.2 %; Hematocrit 39.8 % (35.3-44.9); Immature Granulocytes % 0.3 % (0-4); Lymphocytes # 0.6 K/mcL (0.6-4.6); Lymphocytes % 9.9 %; Mean Corpuscular HGB Conc 32.7 g/dL (31.6-35.5); Mean Corpuscular Hemoglobin 28.3 pg (28.0-33.3); Mean Corpuscular Volume 86.7 fL (83.0-100.0); Mean Platelet Volume 8.9 fL (9.4-12.4); Monocytes # 0.5 K/mcL (0.0-1.3); Monocytes % 7.5 %; Neutrophils # 4.9 K/mcL (1.6-8.9); Platelet Count 295 K/mcL (140-400); Red Blood Count 4.59 M/mcL (3.82-4.97); Segmented Neutrophils % 82.1 %
[2020-04-21 02:57] LABS: BUN/Creatinine Ratio 20 (6-26); Blood Urea Nitrogen 12 mg/dL (8-23); Calcium 8.5 mg/dL (8.6-10.3); Carbon Dioxide 20 mEq/L (23-29); Chloride 103 mEq/L (98-107); Chol/HDL Ratio 4.7 (0-4.9); Cholesterol 109 mg/dL (< 200); Glucose 139 mg/dL (70-105); HDL Cholesterol 23 mg/dL (40-59); LDL Cholesterol,Calculated 67 mg/dL (< 100); Magnesium 1.7 mg/dL (1.6-2.6); Osmolality,Calculated 288 (280-300); Phosphorous 2.3 mg/dL (2.7-4.5); Potassium 3.3 mEq/L (3.5-5.1); Sodium 138 mEq/L (136-145); Triglycerides 97 mg/dL (< 150); eGFR For African Americans > 60 (> 60); eGFR For Non-African Americans > 60 (> 60)
[2020-04-21 03:39] LABS: Platelet Estimate Normal (Normal)
[2020-04-21] MEDS: Pantoprazole 40 MG VIAL IVP SCH ×2 (05:20→17:42)
[2020-04-21] MEDS ORDERED: Potassium Chloride 40 MEQ, Lidocaine 1% 2 ML in 0.9 % Sodium Chloride 500 ML IVPB ONE (07:16)
[2020-04-21] MEDS: Insulin LISPRO 300 UNITS/3 ML VIAL SQ SCH ×3 (08:25→17:33)
[2020-04-21] MEDS ORDERED: *HR* HYDROcodone/Acet 5/325 mg TABLET PO ONE (11:56)
[2020-04-21] MEDS: Ondansetron 4 MG/2 ML VIAL IVP PRN (19:55)
[2020-04-21] MEDS: Melatonin 3 MG TABLET PO SCH (21:13)
[2020-04-21] MEDS: Aspirin Enteric Coated 81 MG Tablet PO SCH (21:13)
[2020-04-22] MEDS: Pantoprazole 40 MG VIAL IVP SCH ×2 (05:46→17:11)
[2020-04-22] MEDS: 0.9 % Sodium Chloride 1,000 ML IVC SCH (07:36)
[2020-04-22] MEDS: Insulin LISPRO 300 UNITS/3 ML VIAL SQ SCH ×5 (07:37→20:55)
[2020-04-22 09:12] LABS: Basophils % 0.3 %; Hematocrit 41.6 % (35.3-44.9); Hemoglobin 13.8 g/dL (11.5-15.4); Immature Granulocytes % 0.3 % (0-4); Lymphocytes # 1.2 K/mcL (0.6-4.6); Lymphocytes % 16.7 %; Mean Corpuscular HGB Conc 33.2 g/dL (31.6-35.5); Mean Corpuscular Hemoglobin 28.3 pg (28.0-33.3); Mean Corpuscular Volume 85.4 fL (83.0-100.0); Mean Platelet Volume 9.1 fL (9.4-12.4); Monocytes # 0.7 K/mcL (0.0-1.3); Monocytes % 9.7 %; Neutrophils # 5.3 K/mcL (1.6-8.9); Platelet Count 331 K/mcL (140-400); Red Blood Count 4.87 M/mcL (3.82-4.97); White Blood Count 7.2 K/mcL (4.3-11.1)
[2020-04-22] MEDS ORDERED: *HR* Propofol 200 MG/20 ML VIAL IVP ONE (09:12)
[2020-04-22] MEDS ORDERED: Lidocaine -MPF 2% 2 ML VIAL ONE (09:12)
[2020-04-22 09:30] LABS: BUN/Creatinine Ratio 14 (6-26); Blood Urea Nitrogen 8 mg/dL (8-23); Carbon Dioxide 26 mEq/L (23-29); Chloride 96 mEq/L (98-107); Potassium 3.1 mEq/L (3.5-5.1); Sodium 135 mEq/L (136-145)
[2020-04-22 09:31] LABS: Calcium 8.8 mg/dL (8.6-10.3); Glucose 93 mg/dL (70-105); Magnesium 1.8 mg/dL (1.6-2.6); Osmolality,Calculated 278 (280-300); Phosphorous 2.3 mg/dL (2.7-4.5); eGFR For African Americans > 60 (> 60); eGFR For Non-African Americans > 60 (> 60)
[2020-04-22 10:11] LABS: Platelet Estimate Normal (Normal); Reactive Lymphocytes Present (Not Present); Toxic Granulation Present (Not Present)
[2020-04-22] MEDS: Ondansetron 4 MG/2 ML VIAL IVP PRN ×2 (10:47→20:54)
[2020-04-22] MEDS ORDERED: Potassium Chloride 40 MEQ, Lidocaine 1% 2 ML in 0.9 % Sodium Chloride 500 ML IVPB ONE (11:58)
[2020-04-22] MEDS: Heparin 25,000UNIT/250ML 1/2NS 25,000 UNIT/250 ML IV.SOLN IVC SCH (17:11)
[2020-04-22] MEDS: Acetaminophen 325 MG TABLET PO PRN (17:18)
[2020-04-22] MEDS ORDERED: Acetaminophen 325 MG TABLET PO SCH (18:00)
[2020-04-22] MEDS: Melatonin 3 MG TABLET PO SCH (20:54)
[2020-04-22] MEDS: Aspirin Enteric Coated 81 MG Tablet PO SCH (20:54)
[2020-04-22] MEDS: *HR* Metoprolol 5 MG/5 ML VIAL IVP PRN (22:40)
[2020-04-23 03:33] LABS: Basophils % 0.2 %; Eosinophils % 0.3 %; Hematocrit 42.1 % (35.3-44.9); Hemoglobin 14.3 g/dL (11.5-15.4); Immature Granulocytes % 0.5 % (0-4); Lymphocytes # 1.4 K/mcL (0.6-4.6); Lymphocytes % 23.5 %; Mean Corpuscular Hemoglobin 28.4 pg (28.0-33.3); Mean Corpuscular Volume 83.7 fL (83.0-100.0); Monocytes # 0.8 K/mcL (0.0-1.3); Monocytes % 13.2 %; Neutrophils # 3.8 K/mcL (1.6-8.9); Platelet Count 323 K/mcL (140-400); Red Blood Count 5.03 M/mcL (3.82-4.97); Red Cell Distribution Width 13.8 % (11.5-14.5); Segmented Neutrophils % 62.3 %; White Blood Count 6.1 K/mcL (4.3-11.1)
[2020-04-23 03:49] LABS: BUN/Creatinine Ratio 12 (6-26); Blood Urea Nitrogen 6 mg/dL (8-23); Calcium 8.7 mg/dL (8.6-10.3); Carbon Dioxide 30 mEq/L (23-29); Chloride 94 mEq/L (98-107); Glucose 111 mg/dL (70-105); Osmolality,Calculated 278 (280-300); Potassium 2.8 mEq/L (3.5-5.1); Sodium 135 mEq/L (136-145); eGFR For African Americans > 60 (> 60); eGFR For Non-African Americans > 60 (> 60)
[2020-04-23 04:21] LABS: Platelet Estimate Normal (Normal); Reactive Lymphocytes Present (Not Present); Toxic Granulation Present (Not Present)
[2020-04-23] MEDS: *HR* Metoprolol 5 MG/5 ML VIAL IVP PRN (04:56)
[2020-04-23] MEDS: Pantoprazole 40 MG VIAL IVP SCH ×2 (04:56→17:13)
[2020-04-23] MEDS: Insulin LISPRO 300 UNITS/3 ML VIAL SQ SCH ×4 (07:19→21:15)
[2020-04-23] MEDS ORDERED: Potassium Chloride 40 MEQ, Lidocaine 1% 2 ML in 0.9 % Sodium Chloride 500 ML IVPB ONE (07:55)
[2020-04-23 12:44] LABS: BUN/Creatinine Ratio 18 (6-26); Blood Urea Nitrogen 11 mg/dL (8-23); Calcium 8.9 mg/dL (8.6-10.3); Carbon Dioxide 29 mEq/L (23-29); Chloride 97 mEq/L (98-107); Glucose 126 mg/dL (70-105); Osmolality,Calculated 277 (280-300); Potassium 4.1 mEq/L (3.5-5.1); Sodium 133 mEq/L (136-145); eGFR For African Americans > 60 (> 60); eGFR For Non-African Americans > 60 (> 60)
[2020-04-23] MEDS: Heparin 25,000UNIT/250ML 1/2NS 25,000 UNIT/250 ML IV.SOLN IVC SCH (15:36)
[2020-04-23] MEDS: Acetaminophen 325 MG TABLET PO PRN (17:14)
[2020-04-23] MEDS: Apixaban 5 MG TABLET PO SCH ×2 (17:25→22:14)
[2020-04-23] MEDS: Melatonin 3 MG TABLET PO SCH (21:24)
[2020-04-23] MEDS: Aspirin Enteric Coated 81 MG Tablet PO SCH (21:26)
[2020-04-24] MEDS: Pantoprazole 40 MG VIAL IVP SCH (05:14)
[2020-04-24 05:46] LABS: Basophils % 0.3 %; Eosinophils # 0.1 K/mcL (0.0-0.6); Hemoglobin 14.7 g/dL (11.5-15.4); Immature Granulocytes % 0.3 % (0-4); Lymphocytes # 1.4 K/mcL (0.6-4.6); Lymphocytes % 19.5 %; Mean Corpuscular HGB Conc 32.7 g/dL (31.6-35.5); Mean Corpuscular Hemoglobin 28.1 pg (28.0-33.3); Mean Platelet Volume 9.4 fL (9.4-12.4); Monocytes # 0.8 K/mcL (0.0-1.3); Monocytes % 11.5 %; Neutrophils # 4.7 K/mcL (1.6-8.9); Platelet Count 280 K/mcL (140-400); Red Blood Count 5.23 M/mcL (3.82-4.97); Red Cell Distribution Width 14.2 % (11.5-14.5); Segmented Neutrophils % 67.4 %; White Blood Count 6.9 K/mcL (4.3-11.1)
[2020-04-24 06:01] LABS: BUN/Creatinine Ratio 17 (6-26); Blood Urea Nitrogen 13 mg/dL (8-23); Calcium 9.1 mg/dL (8.6-10.3); Carbon Dioxide 28 mEq/L (23-29); Chloride 97 mEq/L (98-107); Glucose 124 mg/dL (70-105); Osmolality,Calculated 278 (280-300); Potassium 3.9 mEq/L (3.5-5.1); Sodium 133 mEq/L (136-145); eGFR For African Americans > 60 (> 60); eGFR For Non-African Americans > 60 (> 60)
[2020-04-24] MEDS: Insulin LISPRO 300 UNITS/3 ML VIAL SQ SCH ×2 (08:04→13:00)
[2020-04-24] MEDS: Apixaban 5 MG TABLET PO SCH (10:30)
[2020-04-24] MEDS: Acetaminophen 325 MG TABLET PO PRN (10:31)
[2020-04-24 11:41] VITALS: BP 128/80
== END 2020-04-24 16:15 | disposition home or self-care (01) ==
LOC: 3BNU 13:41 → EMEROOARM 13:41 → SUATTDRO 17:50 → 3BNU 18:48
PROVIDERS: ADMIT Student in an Organized Health Care Education/Training Program; ATTEND Family Medicine
PROC: ENDOEBX (2020-04-22 10:30)

== ENCOUNTER 2020-05-07 09:40 | Observation (INO) ==
[2020-05-07] MEDS ORDERED: 0.9 % Sodium Chloride 1,000 ML IVC ONE ×2 (09:55→11:05)
[2020-05-07] MEDS ORDERED: Ondansetron 4 MG/2 ML VIAL IVP ONE (09:57)
[2020-05-07] MEDS ORDERED: Isovue-370 500 ML BOTTLE IVP ONE (09:57)
[2020-05-07 10:27] LABS: Basophils % 0.2 %; Hematocrit 45.1 % (35.3-44.9); Hemoglobin 14.9 g/dL (11.5-15.4); Immature Granulocytes % 0.5 % (0-4); Lymphocytes # 0.5 K/mcL (0.6-4.6); Lymphocytes % 5.5 %; Mean Corpuscular Hemoglobin 28.6 pg (28.0-33.3); Mean Corpuscular Volume 86.6 fL (83.0-100.0); Mean Platelet Volume 9.6 fL (9.4-12.4); Monocytes # 0.2 K/mcL (0.0-1.3); Monocytes % 1.9 %; Neutrophils # 8.7 K/mcL (1.6-8.9); Platelet Count 340 K/mcL (140-400); Red Blood Count 5.21 M/mcL (3.82-4.97); Red Cell Distribution Width 14.6 % (11.5-14.5); Segmented Neutrophils % 91.9 %; White Blood Count 9.5 K/mcL (4.3-11.1)
[2020-05-07 10:28] LABS: VBG HCO3 25 mEq/L (21-27); VBG PCO2 39 mmHg (41-51); VBG PH 7.41 pH Units (7.32-7.42); VBG PO2 48 mmHg (25-50)
[2020-05-07 10:48] LABS: BUN/Creatinine Ratio 15 (6-26); Blood Urea Nitrogen 11 mg/dL (8-23); Calcium 9.8 mg/dL (8.6-10.3); Carbon Dioxide 24 mEq/L (23-29); Chloride 100 mEq/L (98-107); Glucose 221 mg/dL (70-105); Osmolality,Calculated 292 (280-300); Potassium 3.6 mEq/L (3.5-5.1); Sodium 138 mEq/L (136-145); Troponin I < 0.03 ng/mL (< 0.04); eGFR For African Americans > 60 (> 60); eGFR For Non-African Americans > 60 (> 60)
[2020-05-07 11:30] LABS: Bacteria,Urine Few per hpf (None-Few); Bilirubin,Urine Negative (Negative); Blood,Urine Negative (Negative); Clarity,Urine Clear (Clear); Color,Urine Yellow (Yellow); Glucose,Urine (UA) Normal (Normal); Hyaline Casts,Urine Few per lpf (None Seen); Ketones,Urine 20 mg/dL (Negative); Leukocyte Esterase,Urine Small (Negative); Mucus,Urine Few per lpf (None-Few); Nitrite,Urine Positive (Negative); Protein,Urine 30 mg/dL (Neg-Trace); Specific Gravity,Urine 1.022 (1.010-1.025); Squamous Epithelial Cell,Urine Few per hpf (None-Few); Urobilinogen,Urine Normal (Normal); WBC,Urine 15-30 per hpf (0-3)
[2020-05-07 12:18] LABS: Adenovirus Not Detected (Not Detect); Bordetella Pertussis Not Detected (Not Detect); Chlamydophila pneumoniae Not Detected (Not Detect); Coronavirus 229E Not Detected (Not Detect); Coronavirus HKU1 Not Detected (Not Detect); Coronavirus NL63 Not Detected (Not Detect); Coronavirus OC43 Not Detected (Not Detect); Human Metapneumovirus Not Detected (Not Detect); Human Rhinovirus/Enterovirus Not Detected (Not Detect); Influenza A Subtype 2009 H1 Not Detected (Not Detect); Influenza B Not Detected (Not Detect); Mycoplasma pneumoniae Not Detected (Not Detect); Parainfluenza Virus 1 Not Detected (Not Detect); Parainfluenza Virus 2 Not Detected (Not Detect); Parainfluenza Virus 3 Not Detected (Not Detect); Parainfluenza Virus 4 Not Detected (Not Detect); Respiratory Syncytial Virus Not Detected (Not Detect); SARS-CoV-2 Not Detected (Not Detect)
[2020-05-07] MEDS ORDERED: Ertapenem 1,000 MG in 0.9 % Sodium Chloride Mini Bag 100 ML IVPB ONE (12:18)
[2020-05-07] MEDS ORDERED: Prochlorperazine 10 MG/2 ML VIAL IVP ONE (12:19)
[2020-05-07] MEDS ORDERED: Metoclopramide 10 MG/2 ML VIAL IVP ONE ×2 (13:17→13:30)
[2020-05-07] MEDS ORDERED: 0.9 % Sodium Chloride 1,000 ML IVC SCH (13:30)
[2020-05-07] MEDS ORDERED: Naloxone 0.4 MG/ML INJ IVP PRN (13:34)
[2020-05-07] MEDS ORDERED: Dextrose Gel 15 GM/37.5 ML TUBE PO PRN ×2 (13:41)
[2020-05-07] MEDS ORDERED: D5% in Water 1,000 ML IVC PRN (13:41)
[2020-05-07] MEDS ORDERED: *HR* Dextrose 50 % in Water (Vial) 50 ML VIAL IVP PRN (13:41)
[2020-05-07] MEDS: Famotidine 20 MG/2 ML VIAL IVP SCH ×2 (15:25→18:29)
[2020-05-07] MEDS: Insulin LISPRO 300 UNITS/3 ML VIAL SQ SCH (17:56)
[2020-05-07] MEDS: Aspirin Enteric Coated 81 MG Tablet PO SCH (21:30)
[2020-05-07] MEDS: Apixaban 5 MG TABLET PO SCH (21:31)
[2020-05-07] MEDS: Melatonin 3 MG TABLET PO SCH (21:31)
[2020-05-08] MEDS: Insulin LISPRO 300 UNITS/3 ML VIAL SQ SCH ×5 (00:37→23:12)
[2020-05-08] MEDS: Famotidine 20 MG/2 ML VIAL IVP SCH ×2 (06:21→19:23)
[2020-05-08 06:52] LABS: Hematocrit 40.5 % (35.3-44.9); Mean Corpuscular HGB Conc 32.1 g/dL (31.6-35.5); Mean Corpuscular Hemoglobin 27.8 pg (28.0-33.3); Mean Corpuscular Volume 86.5 fL (83.0-100.0); Platelet Count 251 K/mcL (140-400); Red Blood Count 4.68 M/mcL (3.82-4.97); Red Cell Distribution Width 15.2 % (11.5-14.5); White Blood Count 5.5 K/mcL (4.3-11.1)
[2020-05-08 06:56] LABS: Estimated Average Glucose 157 mg/dl
[2020-05-08 07:11] LABS: BUN/Creatinine Ratio 13 (6-26); Blood Urea Nitrogen 9 mg/dL (8-23); Carbon Dioxide 30 mEq/L (23-29); Chloride 107 mEq/L (98-107); Chol/HDL Ratio 3.2 (0-4.9); Cholesterol 120 mg/dL (< 200); Glucose 100 mg/dL (70-105); HDL Cholesterol 38 mg/dL (40-59); LDL Cholesterol,Calculated 65 mg/dL (< 100); Magnesium 1.6 mg/dL (1.6-2.6); Osmolality,Calculated 293 (280-300); Phosphorous 3.8 mg/dL (2.7-4.5); Potassium 3.5 mEq/L (3.5-5.1); Sodium 142 mEq/L (136-145); Triglycerides 85 mg/dL (< 150); eGFR For African Americans > 60 (> 60); eGFR For Non-African Americans > 60 (> 60)
[2020-05-08] MEDS: Apixaban 5 MG TABLET PO SCH ×2 (09:15→20:28)
[2020-05-08] MEDS: Cholecalciferol (D-3) 1,000 UNIT (25MCG) TABLET PO SCH (09:15)
[2020-05-08] MEDS: Ertapenem 1,000 MG in 0.9 % Sodium Chloride Mini Bag 100 ML IVPB SCH (14:01)
[2020-05-08] MEDS: Melatonin 3 MG TABLET PO SCH (20:28)
[2020-05-08] MEDS: Aspirin Enteric Coated 81 MG Tablet PO SCH (20:28)
[2020-05-08] MEDS ORDERED: Acetaminophen 325 MG TABLET PO PRN (20:31)
[2020-05-09 02:30] LABS: Hematocrit 37.8 % (35.3-44.9); Hemoglobin 12.1 g/dL (11.5-15.4); Mean Corpuscular Volume 87.5 fL (83.0-100.0); Platelet Count 233 K/mcL (140-400); Red Blood Count 4.32 M/mcL (3.82-4.97); Red Cell Distribution Width 15.2 % (11.5-14.5); White Blood Count 7.3 K/mcL (4.3-11.1)
[2020-05-09 02:42] LABS: BUN/Creatinine Ratio 12 (6-26); Blood Urea Nitrogen 8 mg/dL (8-23); Calcium 8.3 mg/dL (8.6-10.3); Carbon Dioxide 26 mEq/L (23-29); Chloride 104 mEq/L (98-107); Glucose 96 mg/dL (70-105); Osmolality,Calculated 280 (280-300); Potassium 3.2 mEq/L (3.5-5.1); Sodium 136 mEq/L (136-145); eGFR For African Americans > 60 (> 60); eGFR For Non-African Americans > 60 (> 60)
[2020-05-09] MEDS: Insulin LISPRO 300 UNITS/3 ML VIAL SQ SCH ×2 (05:23→12:40)
[2020-05-09] MEDS: Famotidine 20 MG/2 ML VIAL IVP SCH (06:03)
[2020-05-09] MEDS: Cholecalciferol (D-3) 1,000 UNIT (25MCG) TABLET PO SCH (09:49)
[2020-05-09] MEDS: Apixaban 5 MG TABLET PO SCH (09:49)
[2020-05-09] MEDS: Ertapenem 1,000 MG in 0.9 % Sodium Chloride Mini Bag 100 ML IVPB SCH (09:50)
[2020-05-09] MEDS ORDERED: Fosfomycin Tromethamine 3 GM Packet PO ONE (13:00)
[2020-05-09 14:56] VITALS: BP 107/65
== END 2020-05-09 16:35 | disposition home health service (06) ==
LOC: 3ANU 09:40 → EMEROOARM 09:40 → SUATTDRO 12:58 → 3ANU 14:33
PROVIDERS: ADMIT Internal Medicine; ATTEND Family Medicine

== ENCOUNTER 2020-07-15 12:42 | Observation (INO) ==
[2020-07-15] MEDS ORDERED: Metoclopramide 10 MG/2 ML VIAL IVP ONE (13:18)
[2020-07-15] MEDS ORDERED: Isovue-370 500 ML BOTTLE IVP ONE (13:19)
[2020-07-15 13:33] LABS: Basophils % 0.3 %; Eosinophils # 0.1 K/mcL (0.0-0.6); Eosinophils % 0.8 %; Hematocrit 43.2 % (35.3-44.9); Hemoglobin 14.7 g/dL (11.5-15.4); Immature Granulocytes % 0.3 % (0-4); Lymphocytes # 1.3 K/mcL (0.6-4.6); Lymphocytes % 16.1 %; Mean Corpuscular Hemoglobin 29.9 pg (28.0-33.3); Mean Platelet Volume 8.8 fL (9.4-12.4); Monocytes # 0.7 K/mcL (0.0-1.3); Monocytes % 8.3 %; Neutrophils # 5.8 K/mcL (1.6-8.9); Platelet Count 297 K/mcL (140-400); Red Blood Count 4.91 M/mcL (3.82-4.97); Red Cell Distribution Width 13.1 % (11.5-14.5); Segmented Neutrophils % 74.2 %; White Blood Count 7.8 K/mcL (4.3-11.1)
[2020-07-15 13:42] LABS: Bilirubin,Urine Negative (Negative); Blood,Urine Negative (Negative); Clarity,Urine Clear (Clear); Color,Urine Light-Yellow (Yellow); Glucose,Urine (UA) Normal (Normal); Ketones,Urine Negative (Negative); Leukocyte Esterase,Urine Negative (Negative); Nitrite,Urine Negative (Negative); PH,Urine 6.5 pH Units (5.0-8.0); Protein,Urine Trace mg/dL (Neg-Trace); Specific Gravity,Urine 1.025 (1.010-1.025); Urobilinogen,Urine Normal (Normal)
[2020-07-15 13:54] LABS: Alanine Aminotransferase 18 Units/L (7-52); Albumin 3.9 g/dL (3.5-5.7); Albumin/Globulin Ratio 1.3 (1.1-2.2); Alkaline Phosphatase 71 Units/L (34-104); Aspartate Amino Transferase 21 Units/L (13-39); BUN/Creatinine Ratio 20 (6-26); Bilirubin,Direct 0.1 mg/dL (0.0-0.2); Bilirubin,Indirect 0.4 mg/dL (0.0-1.0); Bilirubin,Total 0.5 mg/dL (0.3-1.0); Blood Urea Nitrogen 13 mg/dL (8-23); Calcium 9.8 mg/dL (8.6-10.3); Carbon Dioxide 29 mEq/L (23-29); Chloride 95 mEq/L (98-107); Globulin 2.9 g/dL (2.4-3.5); Glucose 166 mg/dL (70-105); Lipase 46 Units/L (11-82); Osmolality,Calculated 282 (280-300); Potassium 3.2 mEq/L (3.5-5.1); Sodium 134 mEq/L (136-145); Total Protein 6.8 g/dL (6.4-8.9); Troponin I < 0.03 ng/mL (< 0.04); eGFR For African Americans > 60 (> 60); eGFR For Non-African Americans > 60 (> 60)
[2020-07-15 14:28] LABS: Adenovirus Not Detected (Not Detect); Bordetella Pertussis Not Detected (Not Detect); Chlamydophila pneumoniae Not Detected (Not Detect); Coronavirus 229E Not Detected (Not Detect); Coronavirus HKU1 Not Detected (Not Detect); Coronavirus NL63 Not Detected (Not Detect); Coronavirus OC43 Not Detected (Not Detect); Human Metapneumovirus Not Detected (Not Detect); Human Rhinovirus/Enterovirus Not Detected (Not Detect); Influenza A Subtype 2009 H1 Not Detected (Not Detect); Influenza B Not Detected (Not Detect); Mycoplasma pneumoniae Not Detected (Not Detect); Parainfluenza Virus 1 Not Detected (Not Detect); Parainfluenza Virus 2 Not Detected (Not Detect); Parainfluenza Virus 3 Not Detected (Not Detect); Parainfluenza Virus 4 Not Detected (Not Detect); Respiratory Syncytial Virus Not Detected (Not Detect); SARS-CoV-2 Not Detected (Not Detect)
[2020-07-15] MEDS ORDERED: Naloxone 0.4 MG/ML INJ IVP PRN (17:01)
[2020-07-15] MEDS ORDERED: Potassium Chloride 20 MEQ, Lidocaine 1% 2 ML in 0.9 % Sodium Chloride 250 ML IVPB ONE (17:08)
[2020-07-15] MEDS ORDERED: *HR* Dextrose 50 % in Water (Vial) 50 ML VIAL IVP PRN (17:10)
[2020-07-15] MEDS ORDERED: Dextrose Gel 15 GM/37.5 ML TUBE PO PRN ×2 (17:10)
[2020-07-15] MEDS ORDERED: D5% in Water 1,000 ML IVC PRN (17:10)
[2020-07-15] MEDS: 0.9 % Sodium Chloride 1,000 ML IVC SCH (17:50)
[2020-07-15] MEDS: Ondansetron 4 MG/2 ML VIAL IVP PRN (18:04)
[2020-07-15] MEDS: Aspirin Enteric Coated 81 MG Tablet PO SCH (21:10)
[2020-07-15] MEDS: Nystatin POWDER 30 GM BOTTLE TP SCH (21:11)
[2020-07-15] MEDS: Melatonin 3 MG TABLET PO PRN (22:06)
[2020-07-16] MEDS: 0.9 % Sodium Chloride 1,000 ML IVC SCH ×3 (02:27→14:52)
[2020-07-16 03:46] LABS: Hematocrit 37.4 % (35.3-44.9); Mean Corpuscular HGB Conc 33.4 g/dL (31.6-35.5); Mean Corpuscular Volume 89.7 fL (83.0-100.0); Mean Platelet Volume 8.7 fL (9.4-12.4); Platelet Count 251 K/mcL (140-400); Red Blood Count 4.17 M/mcL (3.82-4.97); Red Cell Distribution Width 13.3 % (11.5-14.5); White Blood Count 5.6 K/mcL (4.3-11.1)
[2020-07-16 03:47] LABS: Hemoglobin 12.5 g/dL (11.5-15.4)
[2020-07-16 04:06] LABS: BUN/Creatinine Ratio 11 (6-26); Blood Urea Nitrogen 8 mg/dL (8-23); Calcium 8.7 mg/dL (8.6-10.3); Carbon Dioxide 29 mEq/L (23-29); Chloride 102 mEq/L (98-107); Glucose 89 mg/dL (70-105); Magnesium 1.5 mg/dL (1.6-2.6); Osmolality,Calculated 282 (280-300); Potassium 3.1 mEq/L (3.5-5.1); Sodium 137 mEq/L (136-145); eGFR For African Americans > 60 (> 60); eGFR For Non-African Americans > 60 (> 60)
[2020-07-16] MEDS ORDERED: Potassium Chloride Elixir 20 MEQ/15 ML UDC PO ONE (06:03)
[2020-07-16] MEDS: Insulin LISPRO 300 UNITS/3 ML VIAL SUBQ SCH ×3 (07:55→17:19)
[2020-07-16] MEDS: Ondansetron 4 MG/2 ML VIAL IVP PRN (08:02)
[2020-07-16] MEDS: Nystatin POWDER 30 GM BOTTLE TP SCH ×2 (08:06→19:37)
[2020-07-16] MEDS: Sucralfate 1 GM TABLET PO SCH ×2 (14:48→19:34)
[2020-07-16 18:24] LABS: Magnesium 1.9 mg/dL (1.6-2.6); Potassium 3.3 mEq/L (3.5-5.1)
[2020-07-16] MEDS ORDERED: Potassium Chloride 20 MEQ, Lidocaine 1% 2 ML in 0.9 % Sodium Chloride 250 ML IVPB ONE (18:25)
[2020-07-16] MEDS: Aspirin Enteric Coated 81 MG Tablet PO SCH (19:34)
[2020-07-16] MEDS ORDERED: 0.9 % Sodium Chloride 1,000 ML IVC SCH (20:15)
[2020-07-16] MEDS: Melatonin 3 MG TABLET PO PRN (22:01)
[2020-07-17 03:06] LABS: Hematocrit 38.3 % (35.3-44.9); Hemoglobin 12.6 g/dL (11.5-15.4); Mean Corpuscular HGB Conc 32.9 g/dL (31.6-35.5); Mean Corpuscular Hemoglobin 29.4 pg (28.0-33.3); Mean Corpuscular Volume 89.3 fL (83.0-100.0); Mean Platelet Volume 8.6 fL (9.4-12.4); Platelet Count 237 K/mcL (140-400); Red Blood Count 4.29 M/mcL (3.82-4.97); White Blood Count 5.2 K/mcL (4.3-11.1)
[2020-07-17 03:29] LABS: BUN/Creatinine Ratio 10 (6-26); Blood Urea Nitrogen 6 mg/dL (8-23); Calcium 8.5 mg/dL (8.6-10.3); Carbon Dioxide 27 mEq/L (23-29); Chloride 102 mEq/L (98-107); Glucose 83 mg/dL (70-105); Magnesium 1.9 mg/dL (1.6-2.6); Osmolality,Calculated 277 (280-300); Potassium 3.2 mEq/L (3.5-5.1); Sodium 135 mEq/L (136-145); eGFR For African Americans > 60 (> 60); eGFR For Non-African Americans > 60 (> 60)
[2020-07-17] MEDS: Insulin LISPRO 300 UNITS/3 ML VIAL SUBQ SCH ×2 (06:54→12:05)
[2020-07-17] MEDS: Sucralfate 1 GM TABLET PO SCH (07:37)
[2020-07-17] MEDS: Nystatin POWDER 30 GM BOTTLE TP SCH (07:38)
[2020-07-17 11:33] VITALS: BP 131/77
== END 2020-07-17 14:53 | disposition home health service (06) ==
LOC: EMEROOARM 12:42 → 3BNU 12:42
PROVIDERS: ADMIT Internal Medicine; ATTEND Internal Medicine

== ENCOUNTER 2022-03-14 11:11 | Inpatient (IN) ==
[2022-03-14 12:22] LABS: Basophils # 0.1 K/mcL (0.0-0.2); Basophils % 1.4 %; Eosinophils # 0.3 K/mcL (0.0-0.6); Eosinophils % 5.6 %; Hematocrit 41.1 % (35.3-44.9); Hemoglobin 12.7 g/dL (11.5-15.4); Immature Granulocytes % 0.2 % (0-4); Lymphocytes # 1.2 K/mcL (0.6-4.6); Lymphocytes % 25.6 %; Mean Corpuscular HGB Conc 30.9 g/dL (31.6-35.5); Mean Corpuscular Hemoglobin 24.4 pg (28.0-33.3); Mean Platelet Volume 8.5 fL (9.4-12.4); Monocytes # 0.5 K/mcL (0.0-1.3); Monocytes % 10.5 %; Neutrophils # 2.7 K/mcL (1.6-8.9); Platelet Count 326 K/mcL (140-400); Segmented Neutrophils % 56.7 %; White Blood Count 4.8 K/mcL (4.3-11.1)
[2022-03-14 12:39] LABS: Calcium 9.2 mg/dL (8.6-10.3); Potassium 3.7 mEq/L (3.5-5.1)
[2022-03-14] MEDS ORDERED: Iopamidol - 370 500 ML MLS IVP ONE (13:43)
[2022-03-14 14:08] LABS: Albumin 3.6 g/dL (3.5-5.7); Albumin/Globulin Ratio 1.1 (1.1-2.2); Bilirubin,Indirect 0.4 mg/dL (0.0-1.0); Bilirubin,Total 0.4 mg/dL (0.3-1.0); Globulin 3.4 g/dL (2.4-3.5)
[2022-03-14] MEDS ORDERED: Vancomycin 1,500 MG/265 ML IV.SOLN IVPB ONE (15:00)
[2022-03-14] MEDS ORDERED: *HR* Dextrose 50 % in Water (Syg) 50 ML SYRINGE IVP PRN (16:36)
[2022-03-14] MEDS ORDERED: Acetaminophen 325 MG TABLET PO PRN (16:36)
[2022-03-14] MEDS ORDERED: Dextrose Gel 15 GM/37.5 ML TUBE PO PRN ×2 (16:36)
[2022-03-14] MEDS ORDERED: D5% in Water 1,000 ML IVC PRN (16:36)
[2022-03-14] MEDS ORDERED: Naloxone 0.4 MG/ML INJ IVP PRN (16:36)
[2022-03-14] MEDS ORDERED: *HR* HYDROcodone/Acet 5/325 mg TABLET PO PRN (16:36)
[2022-03-14] MEDS ORDERED: Metoclopramide 10 MG/2 ML VIAL IVP PRN (16:40)
[2022-03-14] MEDS ORDERED: cefTRIAXone 1,000 MG in Water for inj. (sterile) 10 ML IVP SCH (18:00)
[2022-03-14] MEDS: *HR* Heparin 5,000 UNIT/ML VIAL SQ SCH (20:46)
[2022-03-14] MEDS ORDERED: Melatonin 3 MG TABLET PO PRN (22:20)
[2022-03-15 05:41] LABS: Basophils # 0.1 K/mcL (0.0-0.2); Basophils % 0.9 %; Eosinophils # 0.3 K/mcL (0.0-0.6); Eosinophils % 4.4 %; Hematocrit 39.1 % (35.3-44.9); Hemoglobin 12.3 g/dL (11.5-15.4); Immature Granulocytes % 0.4 % (0-4); Lymphocytes # 1.5 K/mcL (0.6-4.6); Lymphocytes % 26.3 %; Mean Corpuscular HGB Conc 31.5 g/dL (31.6-35.5); Mean Corpuscular Hemoglobin 24.5 pg (28.0-33.3); Mean Corpuscular Volume 77.7 fL (83.0-100.0); Mean Platelet Volume 8.6 fL (9.4-12.4); Monocytes # 0.6 K/mcL (0.0-1.3); Monocytes % 10.7 %; Neutrophils # 3.2 K/mcL (1.6-8.9); Platelet Count 307 K/mcL (140-400); Red Blood Count 5.03 M/mcL (3.82-4.97); Red Cell Distribution Width 15.3 % (11.5-14.5); Segmented Neutrophils % 57.3 %; White Blood Count 5.6 K/mcL (4.3-11.1)
[2022-03-15] MEDS: *HR* Heparin 5,000 UNIT/ML VIAL SQ SCH ×2 (05:52→22:14)
[2022-03-15 06:04] LABS: Calcium 9.1 mg/dL (8.6-10.3); Phosphorous 3.8 mg/dL (2.7-4.5); Potassium 3.3 mEq/L (3.5-5.1)
[2022-03-15] MEDS ORDERED: Insulin LISPRO 300 UNITS/3 ML VIAL SUBQ SCH (07:30)
[2022-03-15] MEDS ORDERED: *HR* Metoprolol 5 MG/5 ML VIAL IVP ONE (11:45)
[2022-03-15] MEDS ORDERED: Famotidine 20 MG/2 ML VIAL IVP ONE (11:46)
[2022-03-15] MEDS ORDERED: Bupivacaine/Clonidine Syringe 20 ML, Syringe LUER-LOK 1 EACH TP ONE (12:05)
[2022-03-15] MEDS ORDERED: Lidocaine -MPF 2% 2 ML VIAL ONE (12:49)
[2022-03-15] MEDS ORDERED: *HR* Propofol 200 MG/20 ML VIAL IVP ONE (12:50)
[2022-03-15] MEDS ORDERED: Metoclopramide 10 MG/2 ML VIAL IVP PRN (14:13)
[2022-03-15] MEDS ORDERED: *HR* Dextrose 50 % in Water (Syg) 50 ML SYRINGE IVP PRN (14:13)
[2022-03-15] MEDS ORDERED: Melatonin 3 MG TABLET PO PRN (14:13)
[2022-03-15] MEDS ORDERED: D5% in Water 1,000 ML IVC PRN (14:13)
[2022-03-15] MEDS ORDERED: Acetaminophen 325 MG TABLET PO PRN (14:13)
[2022-03-15] MEDS ORDERED: Naloxone 0.4 MG/ML INJ IVP PRN (14:13)
[2022-03-15] MEDS ORDERED: *HR* HYDROcodone/Acet 5/325 mg TABLET PO PRN (14:13)
[2022-03-15] MEDS ORDERED: Dextrose Gel 15 GM/37.5 ML TUBE PO PRN ×2 (14:13)
[2022-03-15] MEDS: hydrOXYzine pamoate 25 MG CAPSULE PO SCH ×2 (14:45→22:19)
[2022-03-15] MEDS: Sucralfate 1 GM TABLET PO SCH ×2 (14:45→22:19)
[2022-03-15] MEDS ORDERED: Vancomycin 1,500 MG/265 ML IV.SOLN IVPB SCH ×2 (15:00)
[2022-03-15] MEDS ORDERED: Sucralfate 1 GM TABLET PO SCH (15:00)
[2022-03-15] MEDS ORDERED: hydrOXYzine pamoate 25 MG CAPSULE PO SCH (15:00)
[2022-03-15] MEDS: Insulin LISPRO 300 UNITS/3 ML VIAL SUBQ SCH (17:04)
[2022-03-15] MEDS ORDERED: Aspirin Enteric Coated 81 MG Tablet PO SCH (21:00)
[2022-03-15] MEDS: cefTRIAXone 1,000 MG in 0.9 % Sodium Chloride 10 ML IVP SCH (22:18)
[2022-03-15] MEDS: Aspirin Enteric Coated 81 MG Tablet PO SCH (22:19)
[2022-03-15] MEDS: Melatonin 3 MG TABLET PO SCH (22:19)
[2022-03-15] MEDS: Furosemide 20 MG TABLET PO SCH (22:21)
[2022-03-16 03:37] LABS: Basophils # 0.1 K/mcL (0.0-0.2); Basophils % 0.8 %; Eosinophils # 0.3 K/mcL (0.0-0.6); Eosinophils % 2.7 %; Hematocrit 40.8 % (35.3-44.9); Hemoglobin 12.6 g/dL (11.5-15.4); Immature Granulocytes % 0.5 % (0-4); Lymphocytes # 1.2 K/mcL (0.6-4.6); Lymphocytes % 12.5 %; Mean Corpuscular HGB Conc 30.9 g/dL (31.6-35.5); Mean Corpuscular Hemoglobin 24.9 pg (28.0-33.3); Mean Corpuscular Volume 80.6 fL (83.0-100.0); Mean Platelet Volume 8.7 fL (9.4-12.4); Monocytes # 0.9 K/mcL (0.0-1.3); Monocytes % 9.1 %; Neutrophils # 7.3 K/mcL (1.6-8.9); Platelet Count 284 K/mcL (140-400); Red Blood Count 5.06 M/mcL (3.82-4.97); Red Cell Distribution Width 15.5 % (11.5-14.5); Segmented Neutrophils % 74.4 %
[2022-03-16 03:49] LABS: White Blood Count 9.8 K/mcL (4.3-11.1)
[2022-03-16 04:13] LABS: Calcium 9.1 mg/dL (8.6-10.3); Magnesium 1.7 mg/dL (1.6-2.6); Potassium 4.3 mEq/L (3.5-5.1)
[2022-03-16] MEDS: *HR* Heparin 5,000 UNIT/ML VIAL SQ SCH ×2 (04:55→17:29)
[2022-03-16] MEDS ORDERED: Cholecalciferol (D-3) 1,000 UNIT (25MCG) TABLET PO SCH (09:00)
[2022-03-16] MEDS ORDERED: Cyanocobalamin (B-12) 1,000 MCG TABLET PO SCH (09:00)
[2022-03-16] MEDS ORDERED: CRANBERRY 500 MG PO SCH (09:00)
[2022-03-16] MEDS: Cyanocobalamin (B-12) 1,000 MCG TABLET PO SCH (09:08)
[2022-03-16] MEDS: Cholecalciferol (D-3) 1,000 UNIT (25MCG) TABLET PO SCH (09:08)
[2022-03-16] MEDS: Sucralfate 1 GM TABLET PO SCH ×3 (09:08→20:42)
[2022-03-16] MEDS: hydrOXYzine pamoate 25 MG CAPSULE PO SCH ×3 (09:08→20:42)
[2022-03-16] MEDS: Furosemide 20 MG TABLET PO SCH ×2 (09:08→15:54)
[2022-03-16] MEDS: Insulin LISPRO 300 UNITS/3 ML VIAL SUBQ SCH ×3 (09:09→17:30)
[2022-03-16] MEDS ORDERED: Vancomycin 1,750 MG/517.5 ML IV.SOLN IVPB SCH (15:00)
[2022-03-16] MEDS: cefTRIAXone 1,000 MG in 0.9 % Sodium Chloride 10 ML IVP SCH (20:41)
[2022-03-16] MEDS: Aspirin Enteric Coated 81 MG Tablet PO SCH (20:42)
[2022-03-16] MEDS: Melatonin 3 MG TABLET PO SCH (20:42)
[2022-03-17] MEDS: *HR* Heparin 5,000 UNIT/ML VIAL SQ SCH (07:22)
[2022-03-17] MEDS: Insulin LISPRO 300 UNITS/3 ML VIAL SUBQ SCH ×2 (07:50→12:00)
[2022-03-17] MEDS: Cyanocobalamin (B-12) 1,000 MCG TABLET PO SCH (07:52)
[2022-03-17] MEDS: Sucralfate 1 GM TABLET PO SCH (07:53)
[2022-03-17] MEDS: Cholecalciferol (D-3) 1,000 UNIT (25MCG) TABLET PO SCH (07:53)
[2022-03-17] MEDS: hydrOXYzine pamoate 25 MG CAPSULE PO SCH (07:53)
[2022-03-17] MEDS: Furosemide 20 MG TABLET PO SCH (07:53)
[2022-03-17 09:55] VITALS: BP 107/58; PULSE 67; TEMP 97.8; O2SAT 95
== END 2022-03-17 14:30 | DRG 629 ==
LOC: EMEROOARM 11:11 → 4WAOSI 11:11 → SUATTDRO 16:38 → 4WAOSI 19:55
PROVIDERS: ADMIT Hospitalist; ATTEND Internal Medicine